=== PATIENT | male | born 1940 | race Caucasian/White ===

== ENCOUNTER 2023-10-01 09:17 | Emergency (ER) | payer MEDICARE, OTHER, SELFPAY ==
[2023-10-01 09:30] VITALS: BP 165/110
--- NOTE | 2023-10-01 09:36 | ED.GENMED ---
History of Present Illness
General
Chief Complaint: Skin Problem
Time Seen by Provider: 10/01/23 09:36
Travel History
Have you had any contact with someone who has COVID-19?: No
Do you have any symptoms of coronavirus? Fever > 100 degrees, chills, cough, shortness of breath, sore throat, loss of taste or smell, muscle aches, or headache?: No
History of Present Illness
History of Present Illness:
HPI: Patient presents due to concern for pain of the distal right lower extremity. He notes redness and warmth. His chart indicates that he is a diabetic but the patient tells me that he does not take any medications and does not clearly state
that he has a diagnosis of diabetes. He denies any trauma. The symptoms have been ongoing for the past week or 2.
EXAM:
GENERAL: Well appearing in no distress
HEENT: Moist oral mucosa
CARDIOVASCULAR: Systolic murmur noted, normal heart rate, regular rhythm, No chest wall tenderness
PULMONARY: No respiratory distress, breath sounds are clear and equal
ABDOMEN: Soft with no peritoneal signs, no tenderness
NEUROLOGIC: Excellent strength all extremities, no coordination deficits
PSYCHIATRIC: Appropriate mental status, normal insight and judgement
EXTREMITIES: There is tenderness warmth and erythema noted to the lateral aspect of the distal right lower extremity without any significant bony tenderness, there is 1-2+ bilateral lower extremity edema
SKIN: As above
TIME OF INITIAL ENCOUNTER: 9:45 AM
NUMBER AND COMPLEXITY OF PROBLEMS ADDRESSED AT THE ENCOUNTER
� Chronic conditions affecting care: Arrthythmia (atrial fibrillation, nonsustained VT, SVT), Cancer (non hodgkins large B cell lymphoma), Hypercholesterolemia, NIDDM, Seizures, Hypothyroidism, Other (Sepsis due to Streptococcus,
intra-abdominal abscess, vitamin D deficiency, presumed essential tremor) and Other (Nephrolithiasis)
� Acute Exacerbation and/or Progression of Chronic Illness: This is an acute problem
� Differential Diagnosis includes: Cellulitis, DVT, poor nutritional state, lymphedema
AMOUNT AND/OR COMPLEXITY OF DATA TO BE REVIEWED AND ANALYZED
� I performed an independent evaluation of and my interpretation is:
EKG:
CT:
X-rays: X-rays of right tib-fib showed no acute abnormality but does show degenerative disease
Laboratory Studies: White count is top normal at 10.8, hemoglobin normal, proBNP is not significantly elevated, albumin normal
Other: Ultrasound imaging shows no evidence of DVT
� Review of other/old records: I reviewed discharge summary from April 2023 at that time he was here with a TIA
� Clinical information was obtained by an independent historian: I spoke to [id number] and then daughter at bedside
� Prescriptions/Medications Considered but not given:
� Further testing considered but not performed:
RISK OF COMPLICATIONS AND/OR MORBIDITY OR MORTALITY OF PATIENT MANAGEMENT
� Social determinants of health affecting care: Lives at home
� Discussion with other providers:
� Escalation of care including admission/observation vs risk of discharge considered: The patient has bilateral lower extremity edema with pain in the right lower extremity distally. Favor more of a diagnosis of cellulitis will
obtain labs and ultrasound.
Past History
Past History
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
vitamin D deficiency, presumed essential tremor) and Other (Nephrolithiasis)
ED Past Surgical History: Other (splenectomy)
Social History
Tobacco: Former smoker
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
Personal:
Living: with family
Family History
Family History: Negative Diabetes, Hypertension or CAD
Phy Exam
Physical Exam
Physical Exam:
See HPI
Course
Orders/Labs/Results
Orders:
Orders
10/01/23 09:51
CR Leg Tibia/fibula Right 2 Vw Urgent
Comment:
Reason For Exam: R pain distal
US Legs, Right [US Periph Venous LOWER Ext RT] Urgent
Comment:
Reason For Exam: swelling pain
10/01/23 10:01
CeFAZolin 1 GRAM [Ancef] 1 gram in 5 ml IV NOW
10/01/23 10:23
Complete Blood Count/With Diff Urgent
Comprehensive Metabolic Panel Urgent
NT-proBNP Urgent
Abnormal Lab Results
10/01/23
10:23
Hct 38.7 L %
(39.0-52.0)
RDW 14.8 H %
(11.5-14.5)
MPV 10.8 H fL
(7.4-10.4)
Abs Immat Gran (auto) 0.1 H 10^3/uL
(0-0.05)
Absolute Neuts (auto) 7.8 H 10^3/uL
(1.4-6.5)
Absolute Monos (auto) 1.2 H 10^3/uL
(0.1-0.6)
Immature Gran % 1.0 H %
(0-0.5)
Lymphocytes % 13.9 L %
(20.5-51.1)
Monocytes % 11.2 H %
(1.7-9.3)
BUN 27 H mg/dl
(9-20)
Glucose 104 H mg/dl
(70-99)
Total Protein 5.9 L g/dl
(6.3-8.2)
10/01/23 10:23
10/01/23 10:23
Vital Signs
Initial and Last Documented VS:
Initial Vital Signs
Temp Pulse Resp BP Pulse Ox
98.0 F 66 16 165/110 98
10/01/23 09:30 10/01/23 09:30 10/01/23 09:30 10/01/23 09:30 10/01/23 09:30
Last Documented Vital Signs
Temp Pulse Resp BP Pulse Ox
98.0 F 56 16 169/78 96
10/01/23 09:30 10/01/23 10:10 10/01/23 10:10 10/01/23 11:43 10/01/23 11:45
*Critical Care Note
Total Time (30-74mins, 75-104mins- exclusive of procedures): Not Applicable
ED Attending Note
-
Portions of this chart may have been created with voice recognition software.� Occasional wrong word or��sound alike� substitutions may have occurred due to the inherent limitations of voice recognition software.
Discharge Plan
Departure
Patient Disposition: Home (Routine Discharge)
Date of Disposition: 10/01/23
Time of Disposition: 12:45
Patient with high blood pressure during this ER visit?: Yes
Discharge Problem:
Cellulitis
Instructions: Cellulitis (Skin Infection), Adult (DC)
Prescriptions:
New
cephalexin 500 mg capsule
500 mg PO TID Qty: 21 0RF
No Action
levothyroxine 125 MCG tablet
125 mcg PO DAILY
metoprolol tartrate 25 MG tablet
25 mg PO BID
aspirin 81 mg tablet,chewable
81 mg PO DAILY
atorvastatin 80 mg tablet
80 mg PO QPM
magnesium oxide 400 mg magnesium Tablet
400 mg PO DAILY
pantoprazole 40 mg tablet,delayed release (DR/EC)
40 mg PO DAILY
metformin 1,000 mg tablet
1,000 mg PO BID
Briviact 100 mg tablet
100 mg PO BID
Referrals:
Silvino Garcia MD [Family Provider] -
Nils Mcintosh MD [Active] - Follow up in 2-3 days
Activity Restrictions/Additional Instructions:
The ultrasound shows no sign of blood clot. The white blood cell count was normal at 10.8, glucose levels 104. Tib-fib x-ray shows some degenerative change at the right knee and also shows a '9 mm dystrophic calcification in the medial aspect of
the proximal tibia' however this is stable compared to the imaging study that you had 03/21/2023. I have given you the contact information for the orthopedist on-call, Dr. Mcintosh. I sent a prescription to your pharmacy for antibiotics. We gave you a
one-time dose of IV Ancef.
Interventions
Interventions:
*Risk Screen - Suicide Last Done: 10/01/23 09:30
*General Assessment Last Done: 10/01/23 09:30
*Neglect/Abuse Screening Last Done: 10/01/23 09:30
ED- Fall Risk Assessment Last Done: 10/01/23 10:15
*ED COVID-19 Vaccine History Last Done: 10/01/23 11:48
ED-Skin Assessment Last Done: 10/01/23 10:15
[2023-10-01 10:10] VITALS: BP 174/84
[2023-10-01 10:17] VITALS: BMI 26.5
[2023-10-01 10:35] LABS: % Basophils 0.5 % (0-2); % Eosinophils 1.6 % (0-6); % Lymphocytes 13.9 % (20.5-51.1); % Monocytes 11.2 % (1.7-9.3); % Neutrophils 71.8 % (42.2-75.2); Absolute Basophils 0.1 10^3/uL (0-0.2); Absolute Eosinophils 0.2 10^3/uL (0-0.7); Absolute Immature Granulocytes 0.1 10^3/uL (0-0.05); Absolute Lymphocytes 1.5 10^3/uL (1.2-3.4); Absolute Monocytes 1.2 10^3/uL (0.1-0.6); Absolute Neutrophils 7.8 10^3/uL (1.4-6.5); Hematocrit 38.7 % (39.0-52.0); Hemoglobin 13.1 g/dL (13.0-18.0); Mean Corp Hgb Conc. 33.9 g/dL (33.0-37.0); Mean Corpuscular Hgb 27.8 pg (27.0-31.0); Mean Corpuscular Volume 82.2 fL (80.0-94.0); Mean Platelet Volume 10.8 fL (7.4-10.4); Nucleated Red Blood Cells % 0.2 % (-); Platelet Count 277 10^3/uL (130-400); Red Blood Cell Count 4.71 10^6/uL (4.70-6.10); Red Cell Dist. Width 14.8 % (11.5-14.5); White Blood Cell Count 10.8 10^3/uL (4.8-10.8)
[2023-10-01 10:46] LABS: ALT (SGPT) 23 U/L (0-50); AST (SGOT) 20 U/L (17-59); Albumin 3.8 g/dl (3.5-5.0); Alkaline Phosphatase 86 U/L (38-126); Blood Urea Nitrogen 27 mg/dl (9-20); Carbon Dioxide 22 mmol/L (22-30); Chloride 107 mmol/L (98-107); Estimated Creatinine Clearance 64 ml/min; Glucose 104 mg/dl (70-99); Potassium 4.3 mmol/L (3.5-5.1); Sodium 135 mmol/L (135-145); Total Bilirubin 0.5 mg/dl (0.2-1.3); Total Protein 5.9 g/dl (6.3-8.2); eGFR > 60.00
[2023-10-01 10:54] LABS: NT-proBNP 498 pg/ml
[2023-10-01] MEDS: ANCEF 5 IV (11:19)
[2023-10-01 11:43] VITALS: BP 169/78
--- NOTE | 2023-10-01 13:16 | EDRN ---
Reviewed discharge instructions with patient and his daughter. Verbalized understanding.[facility]
[2023-10-01 13:17] VITALS: BP 164/74
== END 2023-10-01 13:15 | disposition home or self-care (01) ==
LOC: EMR 09:17
PROVIDERS: EMERGENCY PHYSICIAN Emergency Medicine; FAMILY PHYSICIAN Internal Medicine Geriatric Medicine
DX: L03.115 Cellulitis of right lower limb (principal); I10 Essential (primary) hypertension; Z87.891 Personal history of nicotine dependence
CPT/HCPCS: 99285; 96374; 73590; 80053; 83880; 85025; 93971

== ENCOUNTER → 2023-10-04 11:31 | Outpatient (REF) | payer MEDICARE, OTHER, SELFPAY ==
[2023-10-04 11:56] LABS: % Basophils 0.6 % (0-2); % Eosinophils 1.8 % (0-6); % Immature Granulocytes 0.6 % (0-0.5); % Monocytes 9.6 % (1.7-9.3); % Neutrophils 73.4 % (42.2-75.2); Absolute Basophils 0.1 10^3/uL (0-0.2); Absolute Eosinophils 0.2 10^3/uL (0-0.7); Absolute Immature Granulocytes 0.1 10^3/uL (0-0.05); Absolute Lymphocytes 1.5 10^3/uL (1.2-3.4); Hematocrit 42.6 % (39.0-52.0); Hemoglobin 13.4 g/dL (13.0-18.0); Mean Corp Hgb Conc. 31.5 g/dL (33.0-37.0); Mean Corpuscular Hgb 26.8 pg (27.0-31.0); Mean Corpuscular Volume 85.2 fL (80.0-94.0); Mean Platelet Volume 11.4 fL (7.4-10.4); Nucleated Red Blood Cells % 0.2 % (-); Platelet Count 250 10^3/uL (130-400); Red Cell Dist. Width 15.1 % (11.5-14.5); White Blood Cell Count 10.9 10^3/uL (4.8-10.8)
[2023-10-04 12:00] LABS: Urine Albumin Trace (Neg - Trace); Urine Bilirubin Negative (Negative); Urine Character Clear (Clear); Urine Color Yellow; Urine Glucose Negative (Negative); Urine Ketone Negative (Negative); Urine Leukocyte Negative (Negative); Urine Nitrite Negative (Negative); Urine Occult Blood Negative (Negative); Urine Urobilinogen Negative (Neg - 1+)
[2023-10-04 12:17] LABS: ALT (SGPT) 25 U/L (0-50); AST (SGOT) 24 U/L (17-59); Albumin 3.9 g/dl (3.5-5.0); Alkaline Phosphatase 91 U/L (38-126); Blood Urea Nitrogen 33 mg/dl (9-20); Calcium 9.2 mg/dl (8.4-10.2); Carbon Dioxide 24 mmol/L (22-30); Chloride 103 mmol/L (98-107); Glucose 192 mg/dl (70-99); HDL Cholesterol 41 mg/dl; LDL Cholesterol, Calculated 63 mg/dl; Potassium 4.8 mmol/L (3.5-5.1); Sodium 137 mmol/L (135-145); Total Bilirubin 0.4 mg/dl (0.2-1.3); Total Cholesterol 120 mg/dl (50-199); Total Protein 6.4 g/dl (6.3-8.2); Triglyceride 84 mg/dl (10-149); Very Low Density Lipoprotein 16 mg/dl (0-30); eGFR > 60.00
[2023-10-04 12:30] LABS: Vitamin D, 25-OH*** 46.5 ng/mL (30-80)
== END ==
LOC: OLABWIL 11:31
PROVIDERS: ATTENDING PHYSICIAN Internal Medicine Geriatric Medicine
DX: R56.9 Unspecified convulsions (principal); E78.2 Mixed hyperlipidemia; I10 Essential (primary) hypertension; E11.9 Type 2 diabetes mellitus without complications; E55.9 Vitamin D deficiency, unspecified; I35.0 Nonrheumatic aortic (valve) stenosis
CPT/HCPCS: 36415; 80053; 80061; 81003; 82306; 83036; 85025

== ENCOUNTER → 2024-01-01 11:08 | Outpatient (REF) | payer MEDICARE, OTHER, SELFPAY ==
[2024-01-01 12:14] LABS: % Basophils 0.7 % (0-2); % Immature Granulocytes 0.8 % (0-0.5); % Lymphocytes 20.2 % (20.5-51.1); % Monocytes 12.2 % (1.7-9.3); % Neutrophils 63.1 % (42.2-75.2); Absolute Basophils 0.1 10^3/uL (0-0.2); Absolute Eosinophils 0.2 10^3/uL (0-0.7); Absolute Immature Granulocytes 0.1 10^3/uL (0-0.05); Absolute Lymphocytes 1.5 10^3/uL (1.2-3.4); Absolute Monocytes 0.9 10^3/uL (0.1-0.6); Absolute Neutrophils 4.8 10^3/uL (1.4-6.5); Hematocrit 40.8 % (39.0-52.0); Hemoglobin 13.7 g/dL (13.0-18.0); Mean Corp Hgb Conc. 33.6 g/dL (33.0-37.0); Mean Corpuscular Hgb 27.8 pg (27.0-31.0); Mean Corpuscular Volume 82.8 fL (80.0-94.0); Mean Platelet Volume 10.8 fL (7.4-10.4); Nucleated Red Blood Cells % 0.3 % (-); Platelet Count 297 10^3/uL (130-400); Red Blood Cell Count 4.93 10^6/uL (4.70-6.10); Red Cell Dist. Width 15.1 % (11.5-14.5); White Blood Cell Count 7.6 10^3/uL (4.8-10.8)
[2024-01-01 12:19] LABS: ALT (SGPT) 28 U/L (0-50); AST (SGOT) 29 U/L (17-59); Albumin 4.2 g/dl (3.5-5.0); Alkaline Phosphatase 102 U/L (38-126); Blood Urea Nitrogen 28 mg/dl (9-20); Calcium 9.5 mg/dl (8.4-10.2); Carbon Dioxide 23 mmol/L (22-30); Chloride 103 mmol/L (98-107); Glucose 170 mg/dl (70-99); HDL Cholesterol 36 mg/dl; LDL Cholesterol, Calculated 90 mg/dl; Potassium 4.8 mmol/L (3.5-5.1); Sodium 137 mmol/L (135-145); Total Bilirubin 0.8 mg/dl (0.2-1.3); Total Cholesterol 149 mg/dl (50-199); Total Protein 6.9 g/dl (6.3-8.2); Triglyceride 119 mg/dl (10-149); Very Low Density Lipoprotein 23 mg/dl (0-30); eGFR > 60.00
[2024-01-01 12:31] LABS: Vitamin D, 25-OH*** 34.1 ng/mL (30-80)
[2024-01-01 12:40] LABS: Urine Albumin Trace (Neg - Trace); Urine Bilirubin Negative (Negative); Urine Character Clear (Clear); Urine Color Yellow; Urine Glucose Negative (Negative); Urine Ketone Negative (Negative); Urine Leukocyte Negative (Negative); Urine Nitrite Negative (Negative); Urine Occult Blood 1+ (Negative); Urine Specific Gravity 1.015 (<1.030); Urine Urobilinogen Negative (Neg - 1+)
[2024-01-01 14:06] LABS: Urine Mucus Few
[2024-01-01 14:07] LABS: Urine Amorphous Seen
[2024-01-02 14:24] LABS: Glycohemoglobin (HgbA1c) 7.3 % (4.0-5.6)
== END ==
LOC: OLABWIL 11:08
PROVIDERS: ATTENDING PHYSICIAN Internal Medicine Geriatric Medicine
DX: E11.9 Type 2 diabetes mellitus without complications (principal); I48.91 Unspecified atrial fibrillation; E78.2 Mixed hyperlipidemia; R56.9 Unspecified convulsions; I10 Essential (primary) hypertension; E55.9 Vitamin D deficiency, unspecified; I35.0 Nonrheumatic aortic (valve) stenosis; I63.89 Other cerebral infarction; R25.1 Tremor, unspecified; M00.9 Pyogenic arthritis, unspecified; Z13.89 Encounter for screening for other disorder; M21.371 Foot drop, right foot; R26.9 Unspecified abnormalities of gait and mobility; L84 Corns and callosities; M21.969 Unspecified acquired deformity of unspecified lower leg; L03.115 Cellulitis of right lower limb
CPT/HCPCS: 36415; 80053; 80061; 81003; 81015; 82306; 83036; 85025

== ENCOUNTER → 2024-01-31 07:56 | Outpatient (REF) | payer MEDICARE, OTHER, SELFPAY ==
[2024-01-31 13:16] LABS: NT-proBNP 407 pg/ml
[2024-01-31 13:23] LABS: ALT (SGPT) 30 U/L (0-50); AST (SGOT) 30 U/L (17-59); Albumin 4.4 g/dl (3.5-5.0); Alkaline Phosphatase 110 U/L (38-126); Blood Urea Nitrogen 31 mg/dl (9-20); Calcium 9.2 mg/dl (8.4-10.2); Carbon Dioxide 24 mmol/L (22-30); Chloride 101 mmol/L (98-107); Glucose 119 mg/dl (70-99); Potassium 4.5 mmol/L (3.5-5.1); Sodium 139 mmol/L (135-145); Total Bilirubin 0.8 mg/dl (0.2-1.3); Total Protein 7.1 g/dl (6.3-8.2); eGFR > 60.00
[2024-01-31 13:29] LABS: % Basophils 0.6 % (0-2); % Eosinophils 2.5 % (0-6); % Immature Granulocytes 0.7 % (0-0.5); % Lymphocytes 22.2 % (20.5-51.1); % Monocytes 14.7 % (1.7-9.3); % Neutrophils 59.3 % (42.2-75.2); Absolute Basophils 0.1 10^3/uL (0-0.2); Absolute Eosinophils 0.2 10^3/uL (0-0.7); Absolute Immature Granulocytes 0.1 10^3/uL (0-0.05); Absolute Lymphocytes 1.9 10^3/uL (1.2-3.4); Absolute Monocytes 1.2 10^3/uL (0.1-0.6); Hemoglobin 13.7 g/dL (13.0-18.0); Mean Corp Hgb Conc. 32.6 g/dL (33.0-37.0); Mean Corpuscular Hgb 27.3 pg (27.0-31.0); Mean Corpuscular Volume 83.8 fL (80.0-94.0); Mean Platelet Volume 11.6 fL (7.4-10.4); Nucleated Red Blood Cells % 0 % (-); Platelet Count 330 10^3/uL (130-400); Red Blood Cell Count 5.01 10^6/uL (4.70-6.10); Red Cell Dist. Width 14.9 % (11.5-14.5); White Blood Cell Count 8.4 10^3/uL (4.8-10.8)
== END ==
LOC: RAD 07:56
PROVIDERS: ATTENDING PHYSICIAN Internal Medicine Geriatric Medicine
DX: E11.9 Type 2 diabetes mellitus without complications (principal); I48.91 Unspecified atrial fibrillation; E78.2 Mixed hyperlipidemia; R56.9 Unspecified convulsions; I10 Essential (primary) hypertension; E55.9 Vitamin D deficiency, unspecified; I35.0 Nonrheumatic aortic (valve) stenosis; I63.89 Other cerebral infarction; R25.1 Tremor, unspecified; M00.9 Pyogenic arthritis, unspecified; Z13.89 Encounter for screening for other disorder; M21.371 Foot drop, right foot; R26.9 Unspecified abnormalities of gait and mobility; L84 Corns and callosities; M21.969 Unspecified acquired deformity of unspecified lower leg; L03.115 Cellulitis of right lower limb; I50.43 Acute on chronic combined systolic (congestive) and diastolic (congestive) heart failure; M79.605 Pain in left leg
CPT/HCPCS: 36415; 73590; 80053; 83880; 85025

== ENCOUNTER → 2024-02-07 09:55 | Outpatient (REF) | payer MEDICARE, OTHER, SELFPAY ==
[2024-02-07 11:25] LABS: Blood Urea Nitrogen 46 mg/dl (9-20); Calcium 9.1 mg/dl (8.4-10.2); Carbon Dioxide 28 mmol/L (22-30); Chloride 102 mmol/L (98-107); Glucose 143 mg/dl (70-99); Potassium 4.4 mmol/L (3.5-5.1); Sodium 139 mmol/L (135-145); eGFR 54.85
== END ==
LOC: OLABWIL 09:55
PROVIDERS: ATTENDING PHYSICIAN Internal Medicine Cardiovascular Disease
DX: I50.31 Acute diastolic (congestive) heart failure (principal)
CPT/HCPCS: 36415; 80048

== ENCOUNTER → 2024-02-09 08:29 | Outpatient (REF) | payer MEDICARE, OTHER, SELFPAY | LOC: MRI 3T 08:29 | PROVIDERS: ATTENDING PHYSICIAN Internal Medicine Geriatric Medicine | DX: M79.605 Pain in left leg (principal); R22.9 Localized swelling, mass and lump, unspecified | CPT/HCPCS: 73718 ==

== ENCOUNTER → 2024-03-31 15:59 | Outpatient (REF) | payer MEDICARE, OTHER, SELFPAY ==
[2024-03-31 16:44] LABS: % Basophils 0.6 % (0-2); % Eosinophils 1.6 % (0-6); % Lymphocytes 19.2 % (20.5-51.1); % Monocytes 13.6 % (1.7-9.3); Absolute Basophils 0.1 10^3/uL (0-0.2); Absolute Eosinophils 0.1 10^3/uL (0-0.7); Absolute Immature Granulocytes 0.1 10^3/uL (0-0.05); Absolute Lymphocytes 1.7 10^3/uL (1.2-3.4); Absolute Monocytes 1.2 10^3/uL (0.1-0.6); Absolute Neutrophils 5.7 10^3/uL (1.4-6.5); Hematocrit 39.9 % (39.0-52.0); Hemoglobin 12.9 g/dL (13.0-18.0); Mean Corp Hgb Conc. 32.3 g/dL (33.0-37.0); Mean Corpuscular Hgb 27.7 pg (27.0-31.0); Mean Corpuscular Volume 85.8 fL (80.0-94.0); Mean Platelet Volume 10.5 fL (7.4-10.4); Nucleated Red Blood Cells % 0 % (-); Platelet Count 232 10^3/uL (130-400); Red Blood Cell Count 4.65 10^6/uL (4.70-6.10); White Blood Cell Count 8.8 10^3/uL (4.8-10.8)
[2024-03-31 16:55] LABS: ALT (SGPT) 34 U/L (0-50); AST (SGOT) 28 U/L (17-59); Albumin 4.2 g/dl (3.5-5.0); Alkaline Phosphatase 97 U/L (38-126); Blood Urea Nitrogen 29 mg/dl (9-20); Calcium 9.6 mg/dl (8.4-10.2); Carbon Dioxide 23 mmol/L (22-30); Chloride 106 mmol/L (98-107); Glucose 205 mg/dl (70-99); HDL Cholesterol 36 mg/dl; LDL Cholesterol, Calculated 81 mg/dl; Magnesium 1.3 mg/dl (1.6-2.3); Potassium 4.6 mmol/L (3.5-5.1); Sodium 143 mmol/L (135-145); Total Bilirubin 0.4 mg/dl (0.2-1.3); Total Cholesterol 166 mg/dl (50-199); Total Protein 6.7 g/dl (6.3-8.2); Triglyceride 248 mg/dl (10-149); Very Low Density Lipoprotein 49 mg/dl (0-30); eGFR > 60.00
[2024-03-31 16:56] LABS: LDH 226 U/L (120-246)
[2024-03-31 17:05] LABS: IgA 261 mg/dl (70-400); IgG 779 mg/dl (700-1600); IgM 38 mg/dl (40-230)
== END ==
LOC: REG 15:59
PROVIDERS: ATTENDING PHYSICIAN Internal Medicine; FAMILY PHYSICIAN Internal Medicine Geriatric Medicine
DX: C83.38 Diffuse large B-cell lymphoma, lymph nodes of multiple sites (principal); E11.9 Type 2 diabetes mellitus without complications
CPT/HCPCS: 36415; 80053; 80061; 82784; 83615; 83735; 85025

== ENCOUNTER → 2024-05-20 09:51 | Outpatient (REF) | payer MEDICARE, OTHER, SELFPAY ==
[2024-05-20 11:07] LABS: % Basophils 0.9 % (0-2); % Eosinophils 2.7 % (0-6); % Immature Granulocytes 0.6 % (0-0.5); % Monocytes 12.2 % (1.7-9.3); % Neutrophils 63.6 % (42.2-75.2); Absolute Basophils 0.1 10^3/uL (0-0.2); Absolute Eosinophils 0.2 10^3/uL (0-0.7); Absolute Immature Granulocytes 0.1 10^3/uL (0-0.05); Absolute Lymphocytes 1.6 10^3/uL (1.2-3.4); Absolute Neutrophils 5.1 10^3/uL (1.4-6.5); Hematocrit 41.6 % (39.0-52.0); Hemoglobin 13.7 g/dL (13.0-18.0); Mean Corp Hgb Conc. 32.9 g/dL (33.0-37.0); Mean Corpuscular Hgb 27.8 pg (27.0-31.0); Mean Corpuscular Volume 84.4 fL (80.0-94.0); Mean Platelet Volume 11.6 fL (7.4-10.4); Nucleated Red Blood Cells % 0.2 % (-); Platelet Count 341 10^3/uL (130-400); Red Blood Cell Count 4.93 10^6/uL (4.70-6.10)
[2024-05-20 11:42] LABS: ALT (SGPT) 26 U/L (0-50); AST (SGOT) 27 U/L (17-59); Albumin 4.4 g/dl (3.5-5.0); Alkaline Phosphatase 107 U/L (38-126); Blood Urea Nitrogen 26 mg/dl (9-20); Calcium 9.6 mg/dl (8.4-10.2); Carbon Dioxide 27 mmol/L (22-30); Chloride 103 mmol/L (98-107); Glucose 127 mg/dl (70-99); HDL Cholesterol 37 mg/dl; LDL Cholesterol, Calculated 78 mg/dl; Sodium 142 mmol/L (135-145); Total Bilirubin 0.5 mg/dl (0.2-1.3); Total Cholesterol 133 mg/dl (50-199); Triglyceride 90 mg/dl (10-149); Very Low Density Lipoprotein 18 mg/dl (0-30); eGFR > 60.00
[2024-05-20 12:20] LABS: Glycohemoglobin (HgbA1c) 7.2 % (4.0-5.6)
== END ==
LOC: REG 09:51
PROVIDERS: ATTENDING PHYSICIAN Internal Medicine Geriatric Medicine
DX: E11.9 Type 2 diabetes mellitus without complications (principal); I48.91 Unspecified atrial fibrillation; E78.2 Mixed hyperlipidemia; R56.9 Unspecified convulsions; I10 Essential (primary) hypertension; E55.9 Vitamin D deficiency, unspecified; I35.0 Nonrheumatic aortic (valve) stenosis; I63.89 Other cerebral infarction; R25.1 Tremor, unspecified; M00.9 Pyogenic arthritis, unspecified; M21.371 Foot drop, right foot; R26.9 Unspecified abnormalities of gait and mobility; L84 Corns and callosities; M21.969 Unspecified acquired deformity of unspecified lower leg; L03.115 Cellulitis of right lower limb; I50.43 Acute on chronic combined systolic (congestive) and diastolic (congestive) heart failure; M79.605 Pain in left leg
CPT/HCPCS: 36415; 80053; 80061; 83036; 85025

== ENCOUNTER 2024-06-19 08:46 | Inpatient (IN) | payer MEDICARE, OTHER, SELFPAY ==
[2024-06-02 14:04] VITALS: BMI 27.0
[2024-06-02 14:18] LABS: Hematocrit 40.6 % (39.0-52.0); Hemoglobin 13.1 g/dL (13.0-18.0); Mean Corp Hgb Conc. 32.3 g/dL (33.0-37.0); Mean Corpuscular Hgb 27.8 pg (27.0-31.0); Mean Platelet Volume 10.7 fL (7.4-10.4); Platelet Count 277 10^3/uL (130-400); Red Blood Cell Count 4.72 10^6/uL (4.70-6.10); Red Cell Dist. Width 15.4 % (11.5-14.5); White Blood Cell Count 7.7 10^3/uL (4.8-10.8)
[2024-06-02 14:36] LABS: ALT (SGPT) 25 U/L (0-50); AST (SGOT) 24 U/L (17-59); Albumin 4.1 g/dl (3.5-5.0); Alkaline Phosphatase 86 U/L (38-126); Blood Urea Nitrogen 25 mg/dl (9-20); Calcium 9.1 mg/dl (8.4-10.2); Carbon Dioxide 24 mmol/L (22-30); Chloride 106 mmol/L (98-107); Estimated Creatinine Clearance 57 ml/min; Glucose 157 mg/dl (70-99); Potassium 4.4 mmol/L (3.5-5.1); Sodium 144 mmol/L (135-145); Total Bilirubin 0.4 mg/dl (0.2-1.3); Total Protein 6.6 g/dl (6.3-8.2); eGFR > 60.00
[2024-06-13 09:38] VITALS: BMI 27.0
[2024-06-19] VITALS (12 sets, daily range): BP systolic 126–171; BP diastolic 62–89; PULSE 73; O2SAT 96; BMI 27.0
[2024-06-19] MEDS: MOBIC 15 MG PO (09:22)
[2024-06-19] MEDS: TYLENOL 650 MG PO ×4 (09:22→23:25)
[2024-06-19 09:32] LABS: Glucose - Point of Care 137 mg/dl (70-99)
--- NOTE | 2024-06-19 10:59 | W.PN.UPDATE ---
Update Note
Progress Note Update
R TKA Dr. Wylie 06/19/24
Immunocompromised state:
NHL
Spleenectomy
NIDDM
Age
hx Strep anginosus bacteremia/sepsis
-Cefadroxil ppx OP-monitor incision
NIDDM-A1 C 7.2-add Lantus + SSI Novolog coverage to oral regimen given hyperglycemic effct of surgery and potential for infection
NSVT-BB+tele
HOCM/HFpEF-minimize IVF and monitor volume status-daily weights--Lasix if indicated and BP tolerates
Seizure disorder
hx ETOH abuse
-Briviact+ Serax + Gabapentin--potential for increased tolerance/resistance pain meds
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
TIA
-resume statin and antiplatelet uninterrupted-good BP control
PMH (additional):
Hypothyroid
HTN
HLD
GERD
Pulmonary nodules
[2024-06-19 11:14] LABS: Glucose - Point of Care 80 mg/dl (70-99)
--- NOTE | 2024-06-19 11:32 | W.DS.TRANS ---
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
-
Discharge Instructions:
Sleep Apnea Risk Intermediate
Discharge Diagnosis/Procedures R TKA Dr. Wylie 06/19/24
Diet Diabetic, Carb Controlled
Activity With Walker
Driving Restrictions No driving
Bathing Restrictions OK to Shower
Other Services PT
Instructions:
Stand-Alone Forms: Total Hip/Knee Replacement D/C
Changes to Home Medications: Yes
Discharge Medications:
DC Medications w/original date entered in [facility]
levothyroxine 125 mcg tablet 125 mcg PO DAILY Thyroid 03/01/15
metoprolol tartrate 25 mg tablet 25 mg PO BID Heart disease/condition 08/03/20
atorvastatin 80 mg tablet 80 mg PO QPM High Cholesterol 12/13/22
magnesium oxide 400 mg PO DAILY Supplement 05/13/23
brivaracetam 100 mg tablet (Briviact) 100 mg PO BID Seizures 10/01/23
metformin 1,000 mg tablet 1,000 mg PO BID 10/01/23
pantoprazole 40 mg tablet,delayed release 40 mg PO DAILY 10/01/23
furosemide 20 mg tablet 20 mg PO DIRECTED 06/13/24
Saccharomyces boulardii 250 mg capsule (Florastor) 250 mg PO BID #1 cap 06/19/24
acetaminophen 325 mg tablet (Tylenol) 650 mg (2 x 325 mg) PO QID #1 tab 06/19/24
aspirin 325 mg tablet 325 mg PO DAILY blood clot prevention #1 tab 06/19/24
cefadroxil 500 mg capsule 500 mg PO BID infection prevention #14 caps 06/19/24
docusate sodium 100 mg capsule (Colace) 100 mg PO BID stool softner #1 cap 06/19/24
gabapentin 300 mg capsule 300 mg PO BID sleep/pain #20 caps 06/19/24
magnesium hydroxide 400 mg/5 mL oral suspension (Milk of Magnesia) 30 ml PO HS PRN Constipation #1 mL 06/19/24
meloxicam 15 mg tablet 15 mg PO DAILY anti-inflammatory #14 tabs 06/19/24
ondansetron 4 mg disintegrating tablet 4 mg PO Q6H PRN n/v #20 tabs 06/19/24
oxycodone 5 mg tablet 5 mg PO Q6H PRN 1 tab moderate pain, 2 tabs severe pain #30 tabs 06/19/24
sennosides 8.6 mg tablet (Senokot) 17.2 mg (2 x 8.6 mg) PO BID laxative #2 tabs 06/19/24
Home Medication Changes
Saccharomyces boulardii 250 mg capsule (Florastor) 250 mg PO BID #1 cap 06/19/24
acetaminophen 325 mg tablet (Tylenol) 650 mg (2 x 325 mg) PO QID #1 tab 06/19/24
aspirin 325 mg tablet 325 mg PO DAILY blood clot prevention #1 tab 06/19/24
cefadroxil 500 mg capsule 500 mg PO BID infection prevention #14 caps 06/19/24
docusate sodium 100 mg capsule (Colace) 100 mg PO BID stool softner #1 cap 06/19/24
gabapentin 300 mg capsule 300 mg PO BID sleep/pain #20 caps 06/19/24
magnesium hydroxide 400 mg/5 mL oral suspension (Milk of Magnesia) 30 ml PO HS PRN Constipation #1 mL 06/19/24
meloxicam 15 mg tablet 15 mg PO DAILY anti-inflammatory #14 tabs 06/19/24
ondansetron 4 mg disintegrating tablet 4 mg PO Q6H PRN n/v #20 tabs 06/19/24
oxycodone 5 mg tablet 5 mg PO Q6H PRN 1 tab moderate pain, 2 tabs severe pain #30 tabs 06/19/24
sennosides 8.6 mg tablet (Senokot) 17.2 mg (2 x 8.6 mg) PO BID laxative #2 tabs 06/19/24
Pending Results: No
[2024-06-19 13:52] LABS: Glucose - Point of Care 150 mg/dl (70-99)
[2024-06-19] MEDS: ROXICODONE 5 MG PO (14:23)
--- NOTE | 2024-06-19 15:15 | PTCARENOTE ---
Patient admitted from [facility] right total knee arthroplasty.Vital signs are stable.The dressing is intact without drainage.Neurovascular assessment is within normal limits and ongoing.The patient denies any pain at this time.The patient is in his
bed with the call james in reach.
[2024-06-19] MEDS: NORMOSOL-R/PLASMALYTE-A 1000 IV (15:47)
[2024-06-19 17:09] LABS: Glucose - Point of Care 187 mg/dl (70-99)
[2024-06-19] MEDS: LIPITOR 80 MG PO (17:17)
[2024-06-19] MEDS: ASPIRIN 325 MG PO (17:17)
[2024-06-19] MEDS: PROTONIX 40 MG PO (17:17)
[2024-06-19] MEDS: SYNTHROID 125 MCG PO (17:17)
[2024-06-19] MEDS: GLUCOPHAGE 1000 MG PO (17:17)
[2024-06-19] MEDS: LANTUS 0.08 UNITS SC (17:18)
[2024-06-19] MEDS: NOVOLOG FLEXPEN-MODERATE RESISTANCE 1 UNITS SC (17:58)
[2024-06-19] MEDS: NOVOLOG FLEXPEN 3 UNITS SC (17:59)
--- NOTE | 2024-06-19 19:36 | OR.RPT ---
Operative Report
Operative Report
Orthopaedic Surgery Operative Note
DATE OF OPERATION: 06/19/2024
PREOPERATIVE DIAGNOSES: Osteoarthritis, right knee.
POSTOPERATIVE DIAGNOSES: Osteoarthritis, right knee.
OPERATION PERFORMED:
1) Right total knee arthroplasty (CPT 42203)
2) Intraosseous administration of analgesic (CPT 06444)
SURGEON: Ibrahima Wylie MD
ASSISTANTS: Cuauhtemoc Alvarado PA-C who helped with patient and limb positioning and retraction
ANESTHESIA: Spinal by anesthesia plus intraoperative infusion of morphine into the tibial metaphysis by Dr. Wylie
COMPLICATIONS: None.
ESTIMATED BLOOD LOSS: 20mL
DRAINS: None
TOURNIQUET TIME: 46 minutes.
IMPLANTS:
- Criss Persona CR Femur, size 9
- Criss Persona tibia base plate, size F
- Criss Persona ultracongruent articular surface, 10 mm
- DJO [place] bone cement
INDICATIONS: The patient presented to my office with debilitating right knee pain due to osteoarthritis. We reviewed the natural history of this problem, as well as the risks, benefits, and alternatives of various treatment options. The patient
exhausted all nonoperative treatment options and wished to proceed with knee replacement surgery. The patient understood the risks which included, but were not limited to, bleeding, infection, failure to relieve pain, more pain than preop, damage to
blood vessels and nerves, need for reoperation, mechanical failure of the implants, wound healing problems, stiffness, instability, blood clot, pulmonary embolism, myocardial infarction, pneumonia, arrhythmia, CVA, and . The patient accepted
these risks and wished to proceed. All questions were answered, and informed consent was obtained.
PROCEDURE IN DETAIL: The patient was identified in the preoperative holding area. The right knee was identified as the operative site. The patient was taken in the operating room and placed in a supine position on the operating table. Spinal
anesthesia was performed. IV antibiotics and tranexamic acid were administered. An SCD was placed on the left lower extremity. A well-padded tourniquet was placed on the proximal thigh. All bony prominences were well padded. The right lower
extremity was prepped and draped in the usual sterile fashion.
We performed a surgical time-out. An interarticular block was performed with local anesthetic with epinephrine. The limb was exsanguinated with an Esmarch bandage, then the tourniquet was inflated to 250 mmHg. I performed interosseous administration
of morphine-saline solution via a Jamshidi style intraosseous needle into the proximal medial tibial metaphysis as described by Abhi Mcintosh MD. This was performed to aid in pain control. A midline skin incision was made followed by a medial
parapatellar arthrotomy. A subperiosteal peel was performed on the medial tibia. I excised part of the infrapatellar fat pad to improve our visualization as well as tissue over anterior femur. The patella was everted and the knee was flexed. I
excised the remnants of the anterior and posterior cruciate ligaments as well as tibial and femoral osteophytes with rongeurs.
The knee was flexed, and the extramedullary tibial cutting guide was aligned. Mohave was aligned at neutral, rotation was centered on the tibial tubercle, and coronal alignment was aligned with the mechanical axis of the tibia and center of the ankle
joint. The cut height was 10mm off the lateral tibia joint surface. The guide was secured into place. The MCL and LCL were protected. The tibia surface was cut. The cut surface was inspected after removal to ensure appropriate height and slope based
on the preoperative plan. The cut was checked with a drop anyi. It was centered nicely at the ankle.
A drill was used to open the femoral canal. The intramedullary distal femoral cutting guide was inserted into the femur. This was set at 5 degrees +0. This was secured into place with three pins. The cut level was checked with an homer wing. The
distal femur was cut through the cutting guide. The IM guide was reinserted to double check that the level of resection was flush and in appropriate alignment.
Marilee�s line and the transepicondylar axis were marked on the femur. The femoral sizing guide was applied to the anterior femur. Pins were inserted, and the 4-in-1 cutting guide was applied and secured into place. The rotation was compared to
Colleton�s line, the transepicondylar axis, and the neutral tibia cut and was found to be appropriate. The width was checked and found to be appropriate and lateralized on the femur. The anterior, posterior, and chamfur cuts were made. A lamina
cooker pie filling was used to open the flexion gap, and posterior osteophytes were removed with a curved osteotome. The remnant medial and lateral meniscus were also removed. I prophylactically cauterized the lateral geniculate arteries. A 10mm spacer block
was applied to the flexion gap and was noted to be balanced medially and laterally. The knee was extended, and the block showed symmetric to extension and flexion gaps.
The tibia was exposed and sized. Rotation was set in line with the tibial tubercle and congruent with the femur. The trial was secured into place with two pins. The trial femur was impacted into place, and a trial articular surface was placed. The
knee was taken through range of motion and noted to be stable throughout the arc of motion without gaping or excess tension. The patella tracked centrally throughout the arc of motion without need for further releases. No full thickness cartilage
defects.
The trials were removed. The tibia keel was prepared with the punch and the drill. The bone surfaces were irrigated with sterile saline and dried. The cement was mixed in a vacuum mixer. Cement gun was used to apply cement to the tibial surface and
the undersurface of the tibial implant. Cement was pressurized into the tibial canal and tibia surface. The tibial component was impacted into place. Excess cement was removed. Cement was applied to the femoral surface and the femoral component. The
femoral component was impacted into place, and excess cement removed. A trial articular surface was inserted, and the knee was extended while the cement polymerized. The tourniquet was let down, and meticulous hemostasis was achieved. Dilute
betadine was poured into the wound and allowed to soak for 3 minutes. The knee was irrigated with copious normal saline.
Once the cement was polymerized, the trial articular surface was removed. Any excess cement was removed. The knee was trialed, and the final articular surface was selected and inserted into the tibial locking mechanism. The knee was reduced. A fresh
drape was applied to the surgical field.
The arthrotomy was closed with 0-PDS. Once closed, an interarticular block was performed with local anesthetic with epi. The deep dermal layer was closed with 2-0 PDS, and the subcuticular skin was closed with 3-0 monocryl. A Dermabond Prineo
dressing was applied to the skin in full flexion. Once this was completely dry, a sterile waterproof dressing was applied.
The anesthesia team performed an adductor canal block in the OR. The patient awoke from anesthesia without any difficulties. The sponge and instrument counts were correct x2 at the end of the case.
Mehdi Wylie MD
[2024-06-19] MEDS: BACTROBAN 2% OINTMENT 1 APPLIC NASAL (20:43)
[2024-06-19] MEDS: SENOKOT 17.2 MG PO (20:44)
[2024-06-19] MEDS: NEURONTIN 300 MG PO (20:44)
[2024-06-19] MEDS: TORADOL 15 MG IV (20:44)
[2024-06-19] MEDS: COLACE 100 MG PO (20:45)
[2024-06-19] MEDS: LOPRESSOR 25 MG PO (20:45)
[2024-06-19] MEDS: SERAX 10 MG PO (20:45)
[2024-06-19] MEDS: BRIVIACT 100 MG PO (20:45)
[2024-06-19] MEDS: ANCEF 5 IV (20:50)
[2024-06-19 21:38] LABS: Glucose - Point of Care 218 mg/dl (70-99)
[2024-06-20] VITALS (8 sets, daily range): BP systolic 100–137; BP diastolic 60–69; PULSE 64–88; O2SAT 98
[2024-06-20] MEDS: TYLENOL 650 MG PO ×5 (04:08→20:04)
[2024-06-20] MEDS: ANCEF 5 IV (04:09)
[2024-06-20] MEDS: SYNTHROID 125 MCG PO (05:56)
[2024-06-20 07:37] LABS: Glucose - Point of Care 128 mg/dl (70-99)
[2024-06-20] MEDS: NOVOLOG FLEXPEN-MODERATE RESISTANCE SC ×2 (07:38→17:12)
[2024-06-20] MEDS: NOVOLOG FLEXPEN 3 UNITS SC ×3 (08:48→17:02)
[2024-06-20] MEDS: TORADOL 15 MG IV ×2 (08:49→20:03)
[2024-06-20] MEDS: BRIVIACT 100 MG PO ×2 (08:50→20:02)
[2024-06-20] MEDS: MOBIC 15 MG PO (08:51)
[2024-06-20] MEDS: PROTONIX 40 MG PO (08:51)
[2024-06-20] MEDS: LOPRESSOR 25 MG PO ×2 (08:51→20:02)
[2024-06-20] MEDS: COLACE 100 MG PO ×2 (08:51→20:02)
[2024-06-20] MEDS: NEURONTIN 300 MG PO ×2 (08:51→20:03)
[2024-06-20] MEDS: GLUCOPHAGE 1000 MG PO ×2 (08:51→17:01)
[2024-06-20] MEDS: SENOKOT 17.2 MG PO ×2 (08:51→20:03)
[2024-06-20] MEDS: MAG-TAB SR 84 MG PO (08:51)
[2024-06-20] MEDS: SERAX 10 MG PO ×2 (08:51→20:03)
[2024-06-20] MEDS: ASPIRIN 325 MG PO (08:51)
[2024-06-20] MEDS: LANTUS 0.08 UNITS SC (08:52)
[2024-06-20] MEDS: BACTROBAN 2% OINTMENT 1 APPLIC NASAL ×2 (08:52→20:01)
[2024-06-20] MEDS: LASIX 20 MG PO (08:55)
--- NOTE | 2024-06-20 09:55 | W.PN.ORTHO ---
Today's Communication / Plan
-
Patient very unstable with therapy with lack of focus and high anxiety. He will not be safe at home and is not at a mod I level with RW. Given his multiple comorbidities and functional status, he would benefit from SNF until improved. Will add
fall risk precaution.
Assessment
.
Distal Motor Intact: Yes
Dressing:
Clean, dry and intact.
Assessment:
Anxious and lacks focus
Immunocompromised state:
NHL
Spleenectomy
NIDDM
Age
hx Strep anginosus bacteremia/sepsis
-Cefadroxil ppx OP-monitor incision
NIDDM-A1 C 7.2-add Lantus + SSI Novolog coverage to oral regimen given hyperglycemic effect of surgery and potential for infection
--sugars well controlled
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
HOCM/HFpEF-minimize IVF and monitor volume status-daily weights--Lasix if indicated and BP tolerates-monitor volume status
Seizure disorder
hx ETOH abuse
-Briviact+ Serax + Gabapentin--potential for increased tolerance/resistance pain meds
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
TIA
-resume statin and antiplatelet uninterrupted-good BP control
PMH (additional):
Hypothyroid
HTN
HLD
GERD
Pulmonary nodules
Plan
.
Surgery / Date: R TKA Dr. Wylie 06/19/24
DVT Prophylaxis: Aspirin
Activity:
Out of bed.
PT/OT
Discharge Plan: SNF
Subjective
.
.:
Patient resting comfortably.
Vital Signs and Labs
.
Vital Signs and Labs:
Lab Results
06/02/24 14:01
06/02/24 14:01
Temp Pulse Resp BP Pulse Ox
98.0 F 70 18 125/69 97
06/20/24 08:00 06/20/24 08:00 06/20/24 08:00 06/20/24 08:00 06/20/24 08:00
Non-invasive Hgb result: 12.1
Physical Exam
-
GENERAL: very anxious and lacks focus
HEENT: No pallor, cyanosis, or jaundice. Throat clear.
NECK: Supple. No JVD.
RESPIRATORY: Lungs clear to auscultation.
CVS: S1, S2 normal. RRR.� syNo murmur, systolic 2/6 ejection murmur.
ABDOMEN: Soft, non-tender. No distension. BS+/normal.
EXTREMITIES: strength equal, no calf pain with palpation
BUILDING ESTIMATOR: AOx3. No focal deficits. griddle cook grossly intact
--- NOTE | 2024-06-20 10:51 | CM ---
Met with pt and his son at bedside
Pt reports he lives in independent living at [facility] - apartment, FF set-up, elevator access
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
DME - rolling walker, single point cane, raised toilet seat, shower rails
SNF - no past hx
HH - [facility] in past
Has ride when discharged - son
PCP - Silvino Garcia
Pharm - [facility]
PT currently recommending SNF. Per [facility]ia[facility] - will have bed. Referral to be sent in [facility]
Plan - anticipate transfer to [facility] when medically stable
[2024-06-20 12:27] LABS: Glucose - Point of Care 167 mg/dl (70-99)
[2024-06-20] MEDS: NOVOLOG FLEXPEN-MODERATE RESISTANCE 1 UNITS SC (12:47)
--- NOTE | 2024-06-20 15:48 | PTCARENOTE ---
Addendum entered by Yossi Gold RN 06/20/24 16:06:
rhythm possibly resembling a Wenkebach? EKG obtained. Reads normal sinus with first degree AV block. forwarded to Jeannine RICCI
Original Note:
this afternoon, pt developed regular irregular formation on telemetry, with frequent 1-1.5 second pauses. pt is asymptomatic. irregularity seems to be new this afternoon, pauses seem to be happening since pt placed on telemetry. Fanny Ashby
notified. strip printed and places in chart.
[2024-06-20] MEDS: LIPITOR 80 MG PO (17:01)
[2024-06-20 17:13] LABS: Glucose - Point of Care 131 mg/dl (70-99)
[2024-06-20 19:03] LABS: Glucose - Point of Care 115 mg/dl (70-99)
[2024-06-20] MEDS: FLUSH (NSS) 2 FLUSH IV (20:08)
[2024-06-20 21:47] LABS: Glucose - Point of Care 166 mg/dl (70-99)
[2024-06-21] VITALS (9 sets, daily range): BP systolic 106–159; BP diastolic 59–84; PULSE 72
[2024-06-21] MEDS: TYLENOL 650 MG PO ×5 (00:16→20:05)
--- NOTE | 2024-06-21 00:30 | PTCARENOTE ---
Patient bed alarming with patient attempting to go to bathroom Independently. RN to assist patient. Patient agitated with assistance and yelling at staff. He is impulsive with movement and not following direction for safe movement. Safety
reminders reinenforced when patient was more calm.
[2024-06-21] MEDS: SYNTHROID 125 MCG PO (04:38)
[2024-06-21 07:41] LABS: Glucose - Point of Care 82 mg/dl (70-99)
[2024-06-21] MEDS: NOVOLOG FLEXPEN-MODERATE RESISTANCE SC ×2 (08:14→12:15)
[2024-06-21] MEDS: LANTUS 0.08 UNITS SC (08:15)
[2024-06-21] MEDS: SERAX 10 MG PO ×2 (08:15→20:05)
[2024-06-21] MEDS: ASPIRIN 325 MG PO (08:15)
[2024-06-21] MEDS: NEURONTIN 300 MG PO ×2 (08:15→20:05)
[2024-06-21] MEDS: NOVOLOG FLEXPEN 3 UNITS SC ×3 (08:15→17:36)
[2024-06-21] MEDS: SENOKOT 17.2 MG PO ×2 (08:16→20:05)
[2024-06-21] MEDS: MOBIC 15 MG PO (08:16)
[2024-06-21] MEDS: BRIVIACT 100 MG PO ×2 (08:16→20:04)
[2024-06-21] MEDS: LOPRESSOR 25 MG PO ×2 (08:16→20:05)
[2024-06-21] MEDS: COLACE 100 MG PO ×2 (08:16→20:04)
[2024-06-21] MEDS: PROTONIX 40 MG PO (08:16)
[2024-06-21] MEDS: MAG-TAB SR 84 MG PO (08:16)
[2024-06-21] MEDS: GLUCOPHAGE 1000 MG PO ×2 (08:17→17:35)
[2024-06-21] MEDS: TORADOL 15 MG IV (08:18)
--- NOTE | 2024-06-21 09:19 | W.PN.ORTHO ---
Today's Communication / Plan
-
POD#2 right TKA under the direction of Dr. Wylie
--Weight bearing as tolerated to the right leg. Ambulate with the assistance of a walker
--PT/OT
--Aspirin 325mg daily x4 weeks postop for DVT prophylaxis
--Maintain surgical dressing until follow up appointment
--Continue with pain management as needed
--Case Management consult for discharge planning. Current recommendation is for SNF, likely at [facility]
Assessment
.
Distal Motor Intact: Yes
Dressing:
Clean, dry and intact.
Plan
.
Surgery / Date: R TKA Dr. Wylie 06/19/24
DVT Prophylaxis: Aspirin
Activity:
Out of bed.
PT/OT
Subjective
.
.:
Patient resting comfortably, sitting up in the chair. He reports pain in the knee
Vital Signs and Labs
.
Vital Signs and Labs:
Lab Results
06/02/24 14:01
06/02/24 14:01
Temp Pulse Resp BP Pulse Ox
98.1 F 77 18 159/84 98
06/21/24 07:19 06/21/24 07:19 06/21/24 07:19 06/21/24 07:19 06/21/24 07:19
Non-invasive Hgb result: 12.9
Physical Exam
-
Directed exam of right knee reveals surgical dressing in place. Clean, dry, and intact. Mild tenderness throughout the knee. ROM 5-80. Able to plantarflex/dorsiflex the ankle. calf soft and nontender. NVI distally.
[2024-06-21 12:00] LABS: Glucose - Point of Care 109 mg/dl (70-99)
[2024-06-21] MEDS: TYLENOL PO (15:25)
[2024-06-21 16:34] LABS: Glucose - Point of Care 153 mg/dl (70-99)
[2024-06-21] MEDS: LIPITOR 80 MG PO (17:35)
[2024-06-21] MEDS: NOVOLOG FLEXPEN-MODERATE RESISTANCE 1 UNITS SC (17:36)
[2024-06-21 21:25] LABS: Glucose - Point of Care 124 mg/dl (70-99)
[2024-06-22] MEDS: TYLENOL PO ×2 (02:03→05:30)
[2024-06-22 03:40] VITALS: BP 151/89
[2024-06-22] MEDS: SYNTHROID 125 MCG PO (05:47)
[2024-06-22 06:00] VITALS: BMI 26.7
--- NOTE | 2024-06-22 07:21 | W.PN.ORTHO ---
Today's Communication / Plan
-
POD#3 right TKA under the direction of Dr. Wylie
--Weight bearing as tolerated to the right leg. Ambulate with the assistance of a walker
--PT/OT
--Aspirin 325mg daily x4 weeks postop for DVT prophylaxis
--Maintain surgical dressing until follow up appointment in 2 weeks
--Continue with pain management as needed
--Case Management consult for discharge planning. Current recommendation is for SNF, likely at [facility]
--Patient is stable for discharge today
Assessment
.
Distal Motor Intact: Yes
Dressing:
Clean, dry and intact.
Plan
.
Surgery / Date: R TKA Dr. Wylie 06/19/24
DVT Prophylaxis: Aspirin
Activity:
Out of bed.
PT/OT
Subjective
.
.:
Patient resting comfortably in bed this morning. He reports no pain in the knee at this time, however he anticipated it will hurt when he gets up
Vital Signs and Labs
.
Vital Signs and Labs:
Lab Results
06/02/24 14:01
06/02/24 14:01
Temp Pulse Resp BP Pulse Ox
97.9 F 95 16 151/89 98
06/22/24 03:40 06/22/24 03:40 06/22/24 03:40 06/22/24 03:40 06/22/24 03:40
Non-invasive Hgb result: 12.9
Physical Exam
-
Directed exam of right knee reveals surgical dressing in place. Clean, dry, and intact. Mild tenderness throughout the knee. ROM 5-80. Able to plantarflex/dorsiflex the ankle. calf soft and nontender. NVI distally.
--- NOTE | 2024-06-22 07:27 | W.DCSUMMARY ---
Discharge Summary
Discharge Data
Date of Admission: 06/19/24
Date of Discharge: 06/22/24
-
Pending Results: No
Hospital Course
83 year old male admitted to [facility] following elective right total knee replacement on 06/19/24 under the direction of Dr. Wylie. Postoperatively, his pain was controlled and he was able to work with physical therapy. He was deemed
unsafe to return home and recommendations were made for penitentiary facility. Once he was medically stable, he was discharged to [facility]. He is to be weight bearing as tolerated to the right leg and ambulate with the assistance of
a walker. He is to take aspirin 325mg daily for one month postop to prevent blood clots. He will follow up with Dr. Wylie two weeks postop.
Discharge Plan
-
Patient Disposition: Detention/SNF
Discharge Diagnosis/Procedures: Right Total Knee Arthroplasty Dr. Wylie 06/19/24
Condition: Good
Diet: Diabetic, Carb Controlled
Activity: With Walker
Additional Activity: FALL PRECAUTIONS
Driving Restrictions: No driving
Bathing Restrictions: OK to Shower
Other Services: VN, PT and OT
Stand Alone Forms: Total Hip/Knee Replacement D/C
Referrals:
Silvino Garcia MD [Family Provider] -
Ibrahima Wylie MD [Active] -
Additional Discharge Medication Instructions: discontinue Dexamethasone due to diabetes and immunocompromised state
Prescriptions:
New
aspirin 325 mg tablet
325 mg PO DAILY Qty: 1 0RF
Rx Instructions:
Take with food
cefadroxil 500 mg capsule
500 mg PO BID Qty: 14 0RF
Rx Instructions:
*Take w/ food
*Take w/ probiotic
*POST-OP USE
docusate sodium [Colace] 100 mg capsule
100 mg PO BID Qty: 1 0RF
gabapentin 300 mg capsule
300 mg PO BID Qty: 20 0RF
Saccharomyces boulardii [Florastor] 250 mg capsule
250 mg PO BID Qty: 1 0RF
sennosides [Senokot] 8.6 mg tablet
17.2 mg PO BID Qty: 2 0RF
acetaminophen [Tylenol] 325 mg tablet
650 mg PO QID Qty: 1 0RF
Rx Instructions:
SCHEDULED DOSING
meloxicam 15 mg tablet
15 mg PO DAILY Qty: 14 0RF
Rx Instructions:
take with food
post-op
magnesium hydroxide [Milk of Magnesia] 400 mg/5 mL suspension
30 ml PO HS PRN (Reason: Constipation) Qty: 1 0RF
ondansetron [ondansetron] 4 mg tablet,disintegrating
4 mg PO Q6H PRN (Reason: n/v) Qty: 20 0RF
Rx Instructions:
take 1/2h b/f pain med if recurrent nausea
allow to dissolve in mouth w/o water
oxycodone 5 mg tablet
5 mg PO Q6H PRN (Reason: 1 tab moderate pain, 2 tabs severe pain) Qty: 30 0RF
Rx Instructions:
Ongoing therapy
Continued
levothyroxine 125 MCG tablet
125 mcg PO DAILY
metoprolol tartrate 25 MG tablet
25 mg PO BID
atorvastatin 80 mg tablet
80 mg PO QPM
magnesium oxide 400 mg magnesium Tablet
400 mg PO DAILY
pantoprazole 40 mg tablet,delayed release (DR/EC)
40 mg PO DAILY
metformin 1,000 mg tablet
1,000 mg PO BID
Briviact 100 mg tablet
100 mg PO BID
furosemide 20 mg Tablet
20 mg PO DIRECTED
Rx Instructions:
M,W,F
Discontinued
aspirin 81 mg tablet,chewable
81 mg PO DAILY
Discharge Orders:
Discharge Patient (As Directed); Ordered 06/22/24
Ordered By: Jennifer Thompson
Discharge Date and Time
Print Language: HUNGARIAN
[2024-06-22 07:30] VITALS: BP 148/81
--- NOTE | 2024-06-22 07:31 | W.DS.TRANS ---
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
-
Discharge Instructions:
Sleep Apnea Risk Intermediate
Discharge Diagnosis/Procedures Right Total Knee Arthroplasty Dr. Wylie 06/19/24
Diet Diabetic, Carb Controlled
Activity With Walker
Additional Activity FALL PRECAUTIONS
Driving Restrictions No driving
Bathing Restrictions OK to Shower
Other Services PT,VN,OT
Instructions:
Stand-Alone Forms: Total Hip/Knee Replacement D/C
Changes to Home Medications: No
Discharge Medications:
DC Medications w/original date entered in [employer]
levothyroxine 125 mcg tablet 125 mcg PO DAILY Thyroid 03/01/15
metoprolol tartrate 25 mg tablet 25 mg PO BID Heart disease/condition 08/03/20
atorvastatin 80 mg tablet 80 mg PO QPM High Cholesterol 12/13/22
magnesium oxide 400 mg PO DAILY Supplement 05/13/23
brivaracetam 100 mg tablet (Briviact) 100 mg PO BID Seizures 10/01/23
metformin 1,000 mg tablet 1,000 mg PO BID Diabetes 10/01/23
pantoprazole 40 mg tablet,delayed release 40 mg PO DAILY Gastrointestinal Issue 10/01/23
furosemide 20 mg tablet 20 mg PO DIRECTED Fluid Retention/Swelling 06/13/24
Saccharomyces boulardii 250 mg capsule (Florastor) 250 mg PO BID #1 cap 06/19/24
acetaminophen 325 mg tablet (Tylenol) 650 mg (2 x 325 mg) PO QID #1 tab 06/19/24
aspirin 325 mg tablet 325 mg PO DAILY blood clot prevention #1 tab 06/19/24
cefadroxil 500 mg capsule 500 mg PO BID infection prevention #14 caps 06/19/24
docusate sodium 100 mg capsule (Colace) 100 mg PO BID stool softner #1 cap 06/19/24
gabapentin 300 mg capsule 300 mg PO BID sleep/pain #20 caps 06/19/24
magnesium hydroxide 400 mg/5 mL oral suspension (Milk of Magnesia) 30 ml PO HS PRN Constipation #1 mL 06/19/24
meloxicam 15 mg tablet 15 mg PO DAILY anti-inflammatory #14 tabs 06/19/24
ondansetron 4 mg disintegrating tablet 4 mg PO Q6H PRN n/v #20 tabs 06/19/24
oxycodone 5 mg tablet 5 mg PO Q6H PRN 1 tab moderate pain, 2 tabs severe pain #30 tabs 06/19/24
sennosides 8.6 mg tablet (Senokot) 17.2 mg (2 x 8.6 mg) PO BID laxative #2 tabs 06/19/24
Home Medication Changes
Pending Results: No
[2024-06-22 08:46] LABS: Glucose - Point of Care 108 mg/dl (70-99)
[2024-06-22] MEDS: NOVOLOG FLEXPEN-MODERATE RESISTANCE SC (08:49)
[2024-06-22] MEDS: NOVOLOG FLEXPEN SC ×2 (08:50→11:10)
[2024-06-22] MEDS: LANTUS 0.08 UNITS SC (08:51)
[2024-06-22] MEDS: GLUCOPHAGE 1000 MG PO (08:53)
[2024-06-22] MEDS: BRIVIACT 100 MG PO (08:54)
[2024-06-22] MEDS: MAG-TAB SR 84 MG PO (08:54)
[2024-06-22] MEDS: TYLENOL 650 MG PO ×2 (08:54→13:21)
[2024-06-22] MEDS: SERAX 10 MG PO (08:55)
[2024-06-22] MEDS: ASPIRIN 325 MG PO (08:55)
[2024-06-22] MEDS: MOBIC 15 MG PO (08:55)
[2024-06-22] MEDS: PROTONIX 40 MG PO (08:55)
[2024-06-22] MEDS: SENOKOT 17.2 MG PO (08:55)
[2024-06-22] MEDS: LOPRESSOR 25 MG PO (08:56)
[2024-06-22] MEDS: NEURONTIN 300 MG PO (08:56)
[2024-06-22] MEDS: COLACE 100 MG PO (08:56)
--- NOTE | 2024-06-22 11:12 | CM ---
Addendum entered by Evy Winston 06/22/24 13:38:
Isatu from [place] requesting if family can provide pts meds - Briviat and Oxazepam as Pharm does not have in stock - will order
Spoke with pts son Mynor - family will provide meds -
Updated Isatu at [place]
Addendum entered by Evy Winston 06/22/24 11:36:
Per Isatu at [place] - pt may transfer to [facility] today
Transport at 2PM
Plan - transfer to [facility]
R - [phone]
F - [phone]
Original Note:
Pt accepted at [place]
Called Estrella Lunsford - LM requesting return call -aware pt for discharge today
Sent text message with same info
Called and LM at [facility] - requested return call
IMM reviewed with pt and his daughter at bedside
Plan - [facility] when bed confirmed
[2024-06-22 11:49] LABS: Glucose - Point of Care 150 mg/dl (70-99)
[2024-06-22 13:00] VITALS: BP 129/74
[2024-06-22] MEDS: NOVOLOG FLEXPEN-MODERATE RESISTANCE 1 UNITS SC (13:27)
[2024-06-22] MEDS: NOVOLOG FLEXPEN 3 UNITS SC (13:29)
== END 2024-06-22 14:36 | DRG 470 ==
LOC: 2 SOUTH 08:46
PROVIDERS: ADMITTING PHYSICIAN Orthopaedic Surgery; FAMILY PHYSICIAN Internal Medicine Geriatric Medicine; REFERRING PHYSICIAN Internal Medicine
PROC: 0SRC0J9 Replacement of Right Knee Joint with Synthetic Substitute, Cemented, Open Approach (ICD-10-PCS; 2024-06-19)
DX: M17.11 Unilateral primary osteoarthritis, right knee (principal); I50.42 Chronic combined systolic (congestive) and diastolic (congestive) heart failure; I42.1 Obstructive hypertrophic cardiomyopathy; Z79.82 Long term (current) use of aspirin; I11.9 Hypertensive heart disease without heart failure; E03.9 Hypothyroidism, unspecified; I77.9 Disorder of arteries and arterioles, unspecified; E78.2 Mixed hyperlipidemia; H35.30 Unspecified macular degeneration; Z86.73 Personal history of transient ischemic attack (TIA), and cerebral infarction without residual deficits; Z90.49 Acquired absence of other specified parts of digestive tract; Z90.81 Acquired absence of spleen; Z87.891 Personal history of nicotine dependence; Z88.2 Allergy status to sulfonamides; E11.9 Type 2 diabetes mellitus without complications; Z79.84 Long term (current) use of oral hypoglycemic drugs; Z79.890 Hormone replacement therapy; K59.00 Constipation, unspecified; K21.9 Gastro-esophageal reflux disease without esophagitis; Z85.72 Personal history of non-Hodgkin lymphomas; F10.11 Alcohol abuse, in remission; I11.0 Hypertensive heart disease with heart failure; G40.909 Epilepsy, unspecified, not intractable, without status epilepticus
CPT/HCPCS: 36415; 73560; 80053; 82962; 85027; 87070; 93005; 97110; 97116; 97162; 97166; 97530; 97535; C1713; C1776

== ENCOUNTER → 2024-06-25 10:50 | Outpatient (REF) | payer OTHER, MEDICARE, SELFPAY ==
[2024-06-25 12:41] LABS: Hematocrit 31.2 % (39.0-52.0); Mean Corp Hgb Conc. 32.1 g/dL (33.0-37.0); Mean Corpuscular Hgb 27.8 pg (27.0-31.0); Mean Corpuscular Volume 86.7 fL (80.0-94.0); Mean Platelet Volume 11.5 fL (7.4-10.4); Platelet Count 307 10^3/uL (130-400); Red Cell Dist. Width 14.8 % (11.5-14.5); White Blood Cell Count 8.8 10^3/uL (4.8-10.8)
[2024-06-25 15:04] LABS: ALT (SGPT) 30 U/L (0-50); AST (SGOT) 33 U/L (17-59); Albumin 3.3 g/dl (3.5-5.0); Alkaline Phosphatase 98 U/L (38-126); Blood Urea Nitrogen 38 mg/dl (9-20); Calcium 8.4 mg/dl (8.4-10.2); Carbon Dioxide 23 mmol/L (22-30); Chloride 103 mmol/L (98-107); Glucose 100 mg/dl (70-99); Magnesium 1.8 mg/dl (1.6-2.3); Potassium 4.5 mmol/L (3.5-5.1); Sodium 138 mmol/L (135-145); Total Protein 5.8 g/dl (6.3-8.2); eGFR 54.85
== END ==
LOC: OLABWHC 10:50
PROVIDERS: ATTENDING PHYSICIAN Registered Nurse; FAMILY PHYSICIAN Family Medicine
DX: R60.9 Edema, unspecified (principal); E11.9 Type 2 diabetes mellitus without complications; Z47.1 Aftercare following joint replacement surgery; I10 Essential (primary) hypertension; I48.91 Unspecified atrial fibrillation
CPT/HCPCS: 36415; 80053; 83735; 85027

== ENCOUNTER 2024-09-08 05:07 | Emergency (ER) | payer MEDICARE, OTHER, SELFPAY ==
[2024-09-08 05:10] VITALS: BP 179/99; BMI 26.5
[2024-09-08 05:35] LABS: % Basophils 0.3 % (0-2); % Eosinophils 1.2 % (0-6); % Immature Granulocytes 0.6 % (0-0.5); % Lymphocytes 11.8 % (20.5-51.1); % Monocytes 11.4 % (1.7-9.3); % Neutrophils 74.7 % (42.2-75.2); Absolute Basophils 0.1 10^3/uL (0-0.2); Absolute Eosinophils 0.2 10^3/uL (0-0.7); Absolute Immature Granulocytes 0.1 10^3/uL (0-0.05); Absolute Lymphocytes 1.7 10^3/uL (1.2-3.4); Absolute Monocytes 1.6 10^3/uL (0.1-0.6); Absolute Neutrophils 10.7 10^3/uL (1.4-6.5); Hematocrit 42.6 % (39.0-52.0); Hemoglobin 13.5 g/dL (13.0-18.0); Mean Corp Hgb Conc. 31.7 g/dL (33.0-37.0); Mean Corpuscular Volume 85.2 fL (80.0-94.0); Nucleated Red Blood Cells % 0.1 % (-); Platelet Count 351 10^3/uL (130-400); Red Cell Dist. Width 15.1 % (11.5-14.5); White Blood Cell Count 14.4 10^3/uL (4.8-10.8)
[2024-09-08 05:47] LABS: ALT (SGPT) 22 U/L (0-50); AST (SGOT) 23 U/L (17-59); Alkaline Phosphatase 118 U/L (38-126); Blood Urea Nitrogen 37 mg/dl (9-20); Calcium 9.5 mg/dl (8.4-10.2); Carbon Dioxide 22 mmol/L (22-30); Chloride 107 mmol/L (98-107); Estimated Creatinine Clearance 46 ml/min; Glucose 138 mg/dl (70-99); Lipase 78 U/L (23-300); Potassium 4.6 mmol/L (3.5-5.1); Sodium 139 mmol/L (135-145); Total Bilirubin 0.6 mg/dl (0.2-1.3); Total Protein 6.8 g/dl (6.3-8.2); eGFR > 60.00
[2024-09-08] MEDS: ZOFRAN 4 MG IV (06:10)
[2024-09-08 06:47] VITALS: BP 188/103
--- NOTE | 2024-09-08 07:11 | ED.GENMED ---
History of Present Illness
General
Chief Complaint: Abdominal Symptoms
Source: patient
Time Seen by Provider: 09/08/24 07:03
History of Present Illness
History of Present Illness:
83-year-old male presents to the emergency room complaining of right flank pain. Patient resides at [facility]. He has moderate pain with associated nausea. He has not vomited. No known fever or chills. Patient states that somebody
may have had a kidney stone in the past but the patient does not remember this.
Past History
Past History
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
vitamin D deficiency, presumed essential tremor) and Other (Nephrolithiasis)
ED Past Surgical History: Other (splenectomy)
Social History
Tobacco: Former smoker
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
Personal:
Living: with family
Family History
Family History: Negative Diabetes, Hypertension or CAD
Phy Exam
Physical Exam
Physical Exam:
General: Awake, Alert, Oriented X3. No acute distress.
Vitals: unremarkable
Head: Atraumatic
Eyes: Pupils equal, EOMI
Throat: Airway intact, no exudates
Neck: Trachea midline
Lungs: Clear and equal b/l
Heart: Regular rate, no murmurs
Abd: Soft, Nontender, No pulsatile mass
Back: No significant CVA tenderness to percussion
Neuro: Nonfocal exam normal
Skin: Warm, dry, no rash
Extremities: pulses equal b/l, no edema
Course
Orders/Labs/Results
Orders:
Orders
09/08/24 05:15
CMP [Comprehensive Metabolic Panel] Urgent
Complete Blood Count/With Diff Urgent
Lipase Urgent
09/08/24 06:08
Ondansetron Injectable [Zofran] 4 mg .ROUTE .STK-MED ONE
09/08/24 06:10
Ondansetron Injectable [Zofran] 4 mg IV NOW STA
09/08/24 07:10
CT Abd/pel Without Iv Or Oral Urgent
Comment:
Reason For Exam: r flank pain
0.9% Sodium Chloride 1000 ml [Nss] 1,000 ml IV BOLUS
Ketorolac [Toradol] 15 mg IV NOW STA
09/08/24 08:42
Urinalysis Reflex To Culture Urgent
Date Specimen was Collected: 09/08/24
Time Specimen was Collected: 07:14
Urine Microscopic Reflex Cult Urgent
Abnormal Lab Results
09/08/24 09/08/24
05:15 08:42
WBC 14.4 H 10^3/uL
(4.8-10.8)
MCHC 31.7 L g/dL
(33.0-37.0)
RDW 15.1 H %
(11.5-14.5)
Abs Immat Gran (auto) 0.1 H 10^3/uL
(0-0.05)
Absolute Neuts (auto) 10.7 H 10^3/uL
(1.4-6.5)
Absolute Monos (auto) 1.6 H 10^3/uL
(0.1-0.6)
Immature Gran % 0.6 H %
(0-0.5)
Lymphocytes % 11.8 L %
(20.5-51.1)
Monocytes % 11.4 H %
(1.7-9.3)
BUN 37 H mg/dl
(9-20)
Glucose 138 H mg/dl
(70-99)
Urine Ketones 1+ A
(Negative)
Ur Occult Blood Reflex 4+ A
(Negative)
Urine RBC >100 A /HPF
(0-2)
Urine Glucose 4+ A
(Negative)
Urine Albumin (Reflex) 2+ A
(Neg - Trace)
09/08/24 05:15
09/08/24 05:15
Vital Signs
Initial and Last Documented VS:
Initial Vital Signs
Temp Pulse Resp BP Pulse Ox
98.2 F 82 16 179/99 99
09/08/24 05:10 09/08/24 05:10 09/08/24 05:10 09/08/24 05:10 09/08/24 05:10
Last Documented Vital Signs
Temp Pulse Resp BP Pulse Ox
98.5 F 62 20 175/85 97
09/08/24 06:47 09/08/24 08:14 09/08/24 08:14 09/08/24 08:14 09/08/24 08:15
MDM/Problems Addressed
Differential Diagnosis Includes:
Pyelonephritis, kidney stone, diverticulitis
MDM/Problems Addressed:
Patient presents with right flank pain. White count is mildly of elevated at 14.4. Labs show mildly elevated BUN which is in line with previous measurements. Remainder chemistries are unremarkable. Urinalysis shows significant number of RBCs
without any convincing evidence of urinary tract infection. CT was performed which shows significant hydronephrosis as well as stones in the ureter and in the bladder. Communicated with Dr. Bass for. As long as the patient is comfortable he will
see the patient in follow-up in the office. No reason for hospitalization at this time. I did communicate with the patient's son so that adequate follow-up can be assured.
*Radiology
Radiology exam reviewed: radiology read reviewed
*Pulse Oximetry
Patient hypoxic: no
*Critical Care Note
Total Time (30-74mins, 75-104mins- exclusive of procedures): Not Applicable
ED Attending Note
-
Portions of this chart may have been created with voice recognition software.� Occasional wrong word or��sound alike� substitutions may have occurred due to the inherent limitations of voice recognition software.
Discharge Plan
Departure
Patient Disposition: Assisted Living
Date of Disposition: 09/08/24
Time of Disposition: 11:12
Condition: Good
Discharge Problem:
Renal colic on right side
Instructions: Kidney stones in adults
Prescriptions:
No Action
levothyroxine 125 MCG tablet
125 mcg PO DAILY
metoprolol tartrate 25 MG tablet
25 mg PO BID
atorvastatin 80 mg tablet
80 mg PO QPM
magnesium oxide 400 mg magnesium Tablet
400 mg PO DAILY
pantoprazole 40 mg tablet,delayed release (DR/EC)
40 mg PO DAILY
metformin 1,000 mg tablet
1,000 mg PO BID
Briviact 100 mg tablet
100 mg PO BID
furosemide 20 mg Tablet
20 mg PO DIRECTED
Rx Instructions:
M,W,F
aspirin 325 mg tablet
325 mg PO DAILY Qty: 1 0RF
Rx Instructions:
Take with food
cefadroxil 500 mg capsule
500 mg PO BID Qty: 14 0RF
Rx Instructions:
*Take w/ food
*Take w/ probiotic
*POST-OP USE
docusate sodium [Colace] 100 mg capsule
100 mg PO BID Qty: 1 0RF
gabapentin 300 mg capsule
300 mg PO BID Qty: 20 0RF
Saccharomyces boulardii [Florastor] 250 mg capsule
250 mg PO BID Qty: 1 0RF
sennosides [Senokot] 8.6 mg tablet
17.2 mg PO BID Qty: 2 0RF
acetaminophen [Tylenol] 325 mg tablet
650 mg PO QID Qty: 1 0RF
Rx Instructions:
SCHEDULED DOSING
meloxicam 15 mg tablet
15 mg PO DAILY Qty: 14 0RF
Rx Instructions:
take with food
post-op
magnesium hydroxide [Milk of Magnesia] 400 mg/5 mL suspension
30 ml PO HS PRN (Reason: Constipation) Qty: 1 0RF
ondansetron [ondansetron] 4 mg tablet,disintegrating
4 mg PO Q6H PRN (Reason: n/v) Qty: 20 0RF
Rx Instructions:
take 1/2h b/f pain med if recurrent nausea
allow to dissolve in mouth w/o water
oxycodone 5 mg tablet
5 mg PO Q6H PRN (Reason: 1 tab moderate pain, 2 tabs severe pain) Qty: 30 0RF
Rx Instructions:
Ongoing therapy
Referrals:
Silvino Garcia MD [Family Provider] -
Jose Mathews MD [Active] -
Activity Restrictions/Additional Instructions:
Testing here shows you have several stones in the tube that connects the right kidney to the bladder. You need to see a urologist for this. I have included contact information for Dr. Mathews's office. Call to make an appointment with him or one
of his partners.
Interventions
Interventions:
*Risk Screen - Suicide Last Done: 09/08/24 05:10
*General Assessment Last Done: 09/08/24 05:10
*Neglect/Abuse Screening Last Done: 09/08/24 05:10
ED- Fall Risk Assessment Last Done: 09/08/24 06:47
*ED COVID-19 Vaccine History Last Done: 09/08/24 05:10
*Nursing Disposition Last Done: 09/08/24 11:40
[id number]-[id number] Assessment Last Done: 09/08/24 06:47
Discharge Date and Time
Discharge Date/Time: 09/08/24 11:41
Print Language: HONG KONGER
[2024-09-08] MEDS: TORADOL 15 MG IV (07:23)
[2024-09-08] MEDS: NSS 1000 IV (07:24)
[2024-09-08 07:47] VITALS: BP 197/80
[2024-09-08 08:00] VITALS: BP 175/85
[2024-09-08 08:14] VITALS: BP 175/85
[2024-09-08 09:05] LABS: Urine Albumin 2+ (Neg - Trace); Urine Bilirubin Negative (Negative); Urine Character Clear (Clear); Urine Color Yellow; Urine Glucose 4+ (Negative); Urine Ketone 1+ (Negative); Urine Leukocyte Negative (Negative); Urine Nitrite Negative (Negative); Urine Occult Blood 4+ (Negative); Urine Urobilinogen Negative (Neg - 1+)
[2024-09-08 10:06] LABS: Urine Amorphous Seen; Urine Red Blood Cell >100 /HPF (0-2)
== END 2024-09-08 11:41 ==
LOC: EMR 05:07
PROVIDERS: Emergency Medicine; EMERGENCY PHYSICIAN Emergency Medicine; FAMILY PHYSICIAN Internal Medicine Geriatric Medicine
DX: N13.2 Hydronephrosis with renal and ureteral calculous obstruction (principal); E03.9 Hypothyroidism, unspecified; E11.9 Type 2 diabetes mellitus without complications; E78.00 Pure hypercholesterolemia, unspecified; I48.91 Unspecified atrial fibrillation; Z87.891 Personal history of nicotine dependence; Z85.72 Personal history of non-Hodgkin lymphomas
CPT/HCPCS: 96374; 96375; 99284; 74176; 80053; 81003; 81015; 83690; 85025

== ENCOUNTER 2024-09-12 06:14 | Day surgery (SDC) | payer MEDICARE, OTHER, SELFPAY ==
[2024-09-12] VITALS (8 sets, daily range): BP systolic 141–170; BP diastolic 68–93; BMI 26.0
[2024-09-12 12:30] LABS: Glucose - Point of Care 90 mg/dl (70-99)
[2024-09-12 15:51] LABS: Glucose - Point of Care 85 mg/dl (70-99)
== END 2024-09-12 17:15 | disposition home or self-care (01) ==
LOC: SDS 06:14
PROVIDERS: ATTENDING PHYSICIAN Urology
DX: N20.2 Calculus of kidney with calculus of ureter (principal); N21.0 Calculus in bladder; N40.1 Benign prostatic hyperplasia with lower urinary tract symptoms; N32.0 Bladder-neck obstruction
CPT/HCPCS: 52353; 52317; 76000; 82365; 82962

== ENCOUNTER → 2025-01-27 10:48 | Outpatient (REF) | payer MEDICARE, OTHER, SELFPAY ==
[2025-01-27 12:39] LABS: Hematocrit 41.9 % (39.0-52.0); Hemoglobin 13.5 g/dL (13.0-18.0); Mean Corp Hgb Conc. 32.2 g/dL (33.0-37.0); Mean Corpuscular Volume 82.8 fL (80.0-94.0); Nucleated Red Blood Cells % 0 % (-); Platelet Count 305 10^3/uL (130-400); Red Cell Dist. Width 17.1 % (11.5-14.5)
[2025-01-27 12:59] LABS: Urine Character Clear (Clear)
[2025-01-27 13:48] LABS: Urine Red Blood Cell 0-2 /HPF (0-2); Urine Squamous Cell None seen /LPF (Few); Urine White Cell 0-2 /HPF (0-5)
[2025-01-27 13:51] LABS: Glycohemoglobin (HgbA1c) 6.7 % (4.0-5.6)
[2025-01-27 14:10] LABS: Microalb - Urine Creatinine 82.200 mg/dl
[2025-01-27 14:13] LABS: ALT (SGPT) 24 U/L (0-50); AST (SGOT) 24 U/L (17-59); Albumin 4.3 g/dl (3.5-5.0); Alkaline Phosphatase 94 U/L (38-126); Blood Urea Nitrogen 23 mg/dl (9-20); Calcium 9.2 mg/dl (8.4-10.2); Carbon Dioxide 25 mmol/L (22-30); Chloride 109 mmol/L (98-107); Glucose 113 mg/dl (70-99); HDL Cholesterol 38 mg/dl; LDL Cholesterol, Calculated 73 mg/dl; Potassium 4.8 mmol/L (3.5-5.1); Sodium 141 mmol/L (135-145); Total Protein 6.9 g/dl (6.3-8.2); Very Low Density Lipoprotein 18 mg/dl (0-30); eGFR > 60.00
[2025-01-27 14:15] LABS: Microalbumin, Random Urine 5.6 mg/dl (0.6-1.7)
[2025-01-27 14:21] LABS: Vitamin D, 25-OH*** 39.3 ng/mL (30-80)
[2025-01-27 14:34] LABS: TSH 3.61 uIU/ml (0.47-4.68)
== END ==
LOC: OLABWIL 10:48
PROVIDERS: ATTENDING PHYSICIAN Internal Medicine Geriatric Medicine
DX: E78.2 Mixed hyperlipidemia (principal); E03.8 Other specified hypothyroidism; I10 Essential (primary) hypertension; E11.9 Type 2 diabetes mellitus without complications; G25.0 Essential tremor; R56.9 Unspecified convulsions; E55.9 Vitamin D deficiency, unspecified; I63.89 Other cerebral infarction; R73.01 Impaired fasting glucose; I35.0 Nonrheumatic aortic (valve) stenosis; I48.0 Paroxysmal atrial fibrillation; K21.9 Gastro-esophageal reflux disease without esophagitis; Z13.31 Encounter for screening for depression
CPT/HCPCS: 80053; 80061; 81003; 81015; 82043; 82306; 82570; 83036; 84443; 84681; 85025

== ENCOUNTER → 2025-02-03 09:49 | Outpatient (REF) | payer MEDICARE, OTHER, SELFPAY | LOC: RAD 09:49 | PROVIDERS: ATTENDING PHYSICIAN Nurse Practitioner Family | DX: R13.10 Dysphagia, unspecified (principal) | CPT/HCPCS: 74221 ==

== ENCOUNTER → 2025-03-19 09:16 | Outpatient (REF) | payer MEDICARE, OTHER, SELFPAY ==
[2025-03-19 11:51] LABS: Hematocrit 41.7 % (39.0-52.0); Hemoglobin 13.2 g/dL (13.0-18.0); Mean Corp Hgb Conc. 31.7 g/dL (33.0-37.0); Mean Corpuscular Volume 84.4 fL (80.0-94.0); Nucleated Red Blood Cells % 0 % (-); Platelet Count 317 10^3/uL (130-400); Red Cell Dist. Width 16.5 % (11.5-14.5)
[2025-03-19 11:58] LABS: ALT (SGPT) 49 U/L (0-50); AST (SGOT) 31 U/L (17-59); Albumin 3.9 g/dl (3.5-5.0); Alkaline Phosphatase 81 U/L (38-126); Blood Urea Nitrogen 26 mg/dl (9-20); Calcium 8.9 mg/dl (8.4-10.2); Carbon Dioxide 28 mmol/L (22-30); Chloride 107 mmol/L (98-107); Glucose 99 mg/dl (70-99); Potassium 4.6 mmol/L (3.5-5.1); Sodium 140 mmol/L (135-145); Total Protein 6.5 g/dl (6.3-8.2); eGFR 54.51
== END ==
LOC: OLABWIL 09:16
PROVIDERS: ATTENDING PHYSICIAN Internal Medicine
DX: C83.38 Diffuse large B-cell lymphoma, lymph nodes of multiple sites (principal)
CPT/HCPCS: 36415; 80053; 82784; 85025

== ENCOUNTER 2025-04-30 13:36 | Inpatient (IN) | payer MEDICARE, OTHER, SELFPAY ==
[2025-04-30] VITALS (7 sets, daily range): BP systolic 115–147; BP diastolic 63–79; BMI 28.2
--- NOTE | 2025-04-30 11:21 | ED.GENMED ---
History of Present Illness
<Dez Hamilton PA-C - Last Filed: 04/30/25 16:21>
General
Chief Complaint: Change in Mental Status
Source: patient and ambulance crew
Time Seen by Provider: 04/30/25 11:19
History of Present Illness
History of Present Illness:
84-year-old male with past medical history of mild cognitive impairment, CVA, previous seizure disorder, non-Hodgkin's lymphoma, extensive cardiac history, uay-ixejvxh-ilenfnobe diabetes presenting to the emergency department from [facility]
Living with EMS for evaluation after family member thought patient was a little bit more confused than baseline that they noticed this morning. Patient himself is without any concerns. He denies any pain, no reports of nausea or vomiting, bowel
changes or urinary symptoms. Patient feels as if he is in his usual state of health.
Past History
<Dez Hamilton PA-C - Last Filed: 04/30/25 16:21>
Past History
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
vitamin D deficiency, presumed essential tremor) and Other (Nephrolithiasis)
ED Past Surgical History: Other (splenectomy)
Social History
Tobacco: Former smoker
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
Drug: None
Personal:
Living: half-way
Family History
Family History: Negative Diabetes, Hypertension or CAD
Review of Systems
<Dez Hamilton PA-C - Last Filed: 04/30/25 16:21>
Review of Systems
All Other Systems: ROS reviewed and negative except as documented in HPI and ROS
Phy Exam
<Dez Hamilton PA-C - Last Filed: 04/30/25 16:21>
Physical Exam
Physical Exam:
GENERAL: Alert , in no apparent distress, does answer some questions appropriately but seems slightly confused
HEAD: Normocephalic atraumatic
EYE: conjunctiva clear
NECK: Supple
ENT: o/p clr, mmm.
CARDIAC: Regular rate and rhythm
LUNGS: Clear breath sounds bilaterally, no acute respiratory distress, no wheezes/rales/rhonchi
NEUROLOGICAL: Alert and oriented
SKIN: Warm and dry, skin intact.
MUSCULOSKELETAL: well perfused.
PSYCH: Normal and appropriate interaction.
Scores
<Dez Hamilton PA-C - Last Filed: 04/30/25 16:21>
Heart Failure Risk
Heart Failure Risk Score: Not Applicable
Heart Score for Chest Pain Patients
STEMI patient?: Not applicable
Withdrawal Assessment of Alcohol
Withdrawal Assessment Completed?: Not applicable
Course
<Dez Hamilton PA-C - Last Filed: 04/30/25 16:21>
Orders/Labs/Results
Orders:
Orders
04/30/25 11:20
CT Head W/o Iv Contrast Urgent
Comment:
Reason For Exam: confusion, hx cognitive impairment
04/30/25 11:37
Basic Metabolic Panel Urgent
Complete Blood Count/With Diff Urgent
04/30/25 11:56
Electrocardiogram (*1) Urgent
Reason for Study: TIA/Stroke
CT Head & Neck Angio W/wo IV Urgent
Comment:
Reason For Exam: left sided weakness
EKG- Treatment ONCE
04/30/25 12:12
Aspirin Chewable [Low Strength Aspirin] 324 mg PO NOW STA
Clopidogrel Bisulfate [Plavix] 300 mg PO NOW STA
04/30/25 12:13
Comprehensive Metabolic Panel Urgent
PTT Urgent
Prothrombin Time Urgent
Troponin I Urgent
04/30/25 12:45
Consult Neurology [NEUROLOGY CONSULT] Urgent
Consulting Provider: Bo Talavera
Was physician already notified: Yes
04/30/25 13:17
Admit/Transfer Patient As Directed
Co-Sign Provider:
Level of Care: Inpatient admission
Assign to:: IMU- Intermediate Care
Physician / Group: mehnaz
Diagnosis: Acute Stroke
Reason for Hospitalization: Acute Stroke
Expected length of stay greater than two midnights?: Yes
ELOS- Estimated Length of Stay in days: 3
I certify the patient meets the requirements for IP care: Yes
PRN Pain Medication Management As Directed
May give lesser potent ordered pain med per pt: Yes
preference::
Protocol:: Medication orders for pain may be administered in a
manner that supports deferring to patient preference
when the pt is:
- Requesting an ordered lesser potent pain medication.
Least to most potent pain medications are defined
as: acetaminophen < NSAID < tramadol < opioids
(morphine, oxycodone, hydromorphone).
- Requesting a lesser dose of the same medication IF
ORDERED.
- Requesting a less intrusive route of administration
if both routes are prescribed by the provider (PO <
IV).
04/30/25 13:18
Code Status As Directed
Resuscitation Status: Full Code
04/30/25 13:32
Urinalysis Reflex To Culture Urgent
Date Specimen was Collected: 04/30/25
Time Specimen was Collected: 13:30
Urine Microscopic Reflex Cult Urgent
Abnormal Lab Results
04/30/25 04/30/25 04/30/25
11:37 12:13 13:32
WBC 16.2 H 10^3/uL
(4.8-10.8)
MCH 26.4 L pg
(27.0-31.0)
MCHC 32.2 L g/dL
(33.0-37.0)
RDW 15.6 H %
(11.5-14.5)
MPV 10.7 H fL
(7.4-10.4)
Abs Immat Gran (auto) 0.1 H 10^3/uL
(0-0.05)
Absolute Neuts (auto) 12.8 H 10^3/uL
(1.4-6.5)
Absolute Monos (auto) 1.6 H 10^3/uL
(0.1-0.6)
Immature Gran % 0.6 H %
(0-0.5)
Neutrophils % 78.8 H %
(42.2-75.2)
Lymphocytes % 10.8 L %
(20.5-51.1)
Monocytes % 9.7 H %
(1.7-9.3)
Carbon Dioxide 21 L mmol/L
(22-30)
BUN 41 H mg/dl 41 H mg/dl
(9-20) (9-20)
Creatinine 1.4 H mg/dL 1.4 H mg/dL
(0.7-1.3) (0.7-1.3)
Glucose 168 H mg/dl 176 H mg/dl
(70-99) (70-99)
Ur Occult Blood Reflex 4+ A
(Negative)
Urine RBC 30-40 A /HPF
(0-2)
Urine Bacteria (Reflex) Few A
(Negative)
Urine Glucose 4+ A
(Negative)
Urine Albumin (Reflex) 2+ A
(Neg - Trace)
04/30/25 11:37
04/30/25 12:13
Vital Signs
Initial and Last Documented VS:
Initial Vital Signs
Pulse Resp BP
84 16 134/79
04/30/25 11:24 04/30/25 11:24 04/30/25 11:24
Last Documented Vital Signs
Temp Pulse Resp BP Pulse Ox
98.2 F 69 18 147/73 98
04/30/25 12:00 04/30/25 15:45 04/30/25 15:45 04/30/25 12:21 04/30/25 11:36
<Robosn Phillips, DO - Last Filed: 04/30/25 11:26>
Orders/Labs/Results
Orders:
Orders
04/30/25 11:20
CT Head W/o Iv Contrast Urgent
Comment:
Reason For Exam: confusion, hx cognitive impairment
04/30/25 11:37
Basic Metabolic Panel Urgent
Complete Blood Count/With Diff Urgent
04/30/25 11:56
Electrocardiogram (*1) Urgent
Reason for Study: TIA/Stroke
CT Head & Neck Angio W/wo IV Urgent
Comment:
Reason For Exam: left sided weakness
EKG- Treatment ONCE
04/30/25 12:12
Aspirin Chewable [Low Strength Aspirin] 324 mg PO NOW STA
Clopidogrel Bisulfate [Plavix] 300 mg PO NOW STA
04/30/25 12:13
Comprehensive Metabolic Panel Urgent
PTT Urgent
Prothrombin Time Urgent
Troponin I Urgent
04/30/25 12:45
Consult Neurology [NEUROLOGY CONSULT] Urgent
Consulting Provider: Bo Talavera
Was physician already notified: Yes
04/30/25 13:17
Admit/Transfer Patient As Directed
Co-Sign Provider:
Level of Care: Inpatient admission
Assign to:: IMU- Intermediate Care
Physician / Group: mehnaz
Diagnosis: Acute Stroke
Reason for Hospitalization: Acute Stroke
Expected length of stay greater than two midnights?: Yes
ELOS- Estimated Length of Stay in days: 3
I certify the patient meets the requirements for IP care: Yes
PRN Pain Medication Management As Directed
May give lesser potent ordered pain med per pt: Yes
preference::
Protocol:: Medication orders for pain may be administered in a
manner that supports deferring to patient preference
when the pt is:
- Requesting an ordered lesser potent pain medication.
Least to most potent pain medications are defined
as: acetaminophen < NSAID < tramadol < opioids
(morphine, oxycodone, hydromorphone).
- Requesting a lesser dose of the same medication IF
ORDERED.
- Requesting a less intrusive route of administration
if both routes are prescribed by the provider (PO <
IV).
04/30/25 13:18
Code Status As Directed
Resuscitation Status: Full Code
04/30/25 13:32
Urinalysis Reflex To Culture Urgent
Date Specimen was Collected: 04/30/25
Time Specimen was Collected: 13:30
Urine Microscopic Reflex Cult Urgent
Abnormal Lab Results
04/30/25 04/30/25 04/30/25
11:37 12:13 13:32
WBC 16.2 H 10^3/uL
(4.8-10.8)
MCH 26.4 L pg
(27.0-31.0)
MCHC 32.2 L g/dL
(33.0-37.0)
RDW 15.6 H %
(11.5-14.5)
MPV 10.7 H fL
(7.4-10.4)
Abs Immat Gran (auto) 0.1 H 10^3/uL
(0-0.05)
Absolute Neuts (auto) 12.8 H 10^3/uL
(1.4-6.5)
Absolute Monos (auto) 1.6 H 10^3/uL
(0.1-0.6)
Immature Gran % 0.6 H %
(0-0.5)
Neutrophils % 78.8 H %
(42.2-75.2)
Lymphocytes % 10.8 L %
(20.5-51.1)
Monocytes % 9.7 H %
(1.7-9.3)
Carbon Dioxide 21 L mmol/L
(22-30)
BUN 41 H mg/dl 41 H mg/dl
(9-20) (9-20)
Creatinine 1.4 H mg/dL 1.4 H mg/dL
(0.7-1.3) (0.7-1.3)
Glucose 168 H mg/dl 176 H mg/dl
(70-99) (70-99)
Ur Occult Blood Reflex 4+ A
(Negative)
Urine RBC 30-40 A /HPF
(0-2)
Urine Bacteria (Reflex) Few A
(Negative)
Urine Glucose 4+ A
(Negative)
Urine Albumin (Reflex) 2+ A
(Neg - Trace)
04/30/25 11:37
04/30/25 12:13
Vital Signs
Initial and Last Documented VS:
Initial Vital Signs
Pulse Resp BP
84 16 134/79
04/30/25 11:24 04/30/25 11:24 04/30/25 11:24
Last Documented Vital Signs
Temp Pulse Resp BP Pulse Ox
98.2 F 69 18 147/73 98
04/30/25 12:00 04/30/25 15:45 04/30/25 15:45 04/30/25 12:21 04/30/25 11:36
<Dez Hamilton PA-C - Last Filed: 04/30/25 16:21>
MDM/Problems Addressed
Differential Diagnosis Includes:
Progression of cognitive impairment
CVA
Seizure
Electrolyte imbalance
UTI
Viral syndrome
MDM/Problems Addressed:
84-year-old male presenting to the ER for reports of mild confusion earlier today, patient reporting no symptoms at present. Arrives hemodynamically stable, no respiratory complaints. Patient is oriented x 3. Will obtain labs, urine and CT of the
head. Reassessment following, will touch base with patient's family and place of living.
<Dez Hamilton PA-C - Last Filed: 04/30/25 16:21>
*Radiology
Radiology exam reviewed: radiology read reviewed
*Pulse Oximetry
SaO2: 95
Oxygen Mode of Delivery: Room air
Patient hypoxic: no
*Critical Care Note
Total Time (30-74mins, 75-104mins- exclusive of procedures): 33
comment:
Critical care statement: A total of 33 minutes of critical care time was provided for this patient. This includes management of unstable vital signs, evaluation of the patient at bedside, reviewing the patient's pertinent medical records, discussion
with consultants, review of old EKGs and review of pertinent medical records. This time with separate from time utilized to perform the aforementioned documented procedures
Data Reviewed
Review of Other/Old Records Reveals: Labs and Records
Source: patient and records
<Dez Hamilton PA-C - Last Filed: 04/30/25 16:21>
Patient Management
Discussion with other providers: Hospitalist, Under Cutting Machine Operator and Radiologist
Escalation/DeEscalation of care consider admission/obs:
Notified by radiologist that there is concerning findings on patient's CT for an acute frontal infarct. I notified the neurology team who came to me and evaluated patient, recommends treating with aspirin and Plavix. Vomiting, they ordered an MRI
to be followed patient. Hospitalist was notified and accepts for continued evaluation and treatment.
ED Attending Note
<Dez Hamilton PA-C - Last Filed: 04/30/25 16:21>
-
Portions of this chart may have been created with voice recognition software.� Occasional wrong word or��sound alike� substitutions may have occurred due to the inherent limitations of voice recognition software.
<Robson Phillips, DO - Last Filed: 04/30/25 11:26>
ED Attending Note
Patient seen and examined by attending physician: Yes
I performed the substantive portion of visit, reviewed & personally made and approve the management plan that is documented in note by myself or BABAK.: Yes
ED Attending Note:
I have seen and evaluated the patient with a [id number] encounter. I have spoken to the advance practicer provider and involved in the medical history, the physical exam, medical decision making.
Evaluation and management service: agree unless noted differently below.
Results interpretation: agree unless noted differently below.
Focused HPI: 84-year-old male presenting for evaluation of altered mental status. Per EMS, family noted that he was 'off'
Physical exam: Sitting bed comfortably. No acute distress.
Medical Decision Making: Will obtain basic blood work including urinalysis to evaluate for any medical reason for his altered mental status.
Discharge Plan
Departure
Patient Disposition: Admit
Date of Disposition: 04/30/25
Time of Disposition: 12:22
Presentation/result/management discussed w/ accepting MD/DO: Hospitalist
Discharge Problem:
Acute CVA (cerebrovascular accident)
Interventions
Interventions:
*Risk Screen - Suicide Last Done: 04/30/25 11:44
*General Assessment Last Done: 04/30/25 11:44
*Neglect/Abuse Screening Last Done: 04/30/25 11:44
*ED- Fall Risk Assessment Last Done: 04/30/25 11:44
*ED COVID-19 Vaccine History Last Done: 04/30/25 11:41
*ED Influenza Vaccine History Last Done: 04/30/25 11:41
ED- Neurological Assessment Last Done: 04/30/25 11:41
ED Swallowing Screen Last Done: 04/30/25 11:41
[2025-04-30 11:48] LABS: Hematocrit 41.6 % (39.0-52.0); Hemoglobin 13.4 g/dL (13.0-18.0); Mean Corp Hgb Conc. 32.2 g/dL (33.0-37.0); Mean Corpuscular Volume 82.1 fL (80.0-94.0); Nucleated Red Blood Cells % 0.1 % (-); Platelet Count 264 10^3/uL (130-400); Red Cell Dist. Width 15.6 % (11.5-14.5)
[2025-04-30 12:08] LABS: Blood Urea Nitrogen 41 mg/dl (9-20); Calcium 9.5 mg/dl (8.4-10.2); Carbon Dioxide 21 mmol/L (22-30); Chloride 105 mmol/L (98-107); Estimated Creatinine Clearance 37 ml/min; Glucose 168 mg/dl (70-99); Potassium 4.9 mmol/L (3.5-5.1); Sodium 137 mmol/L (135-145); eGFR 49.87
[2025-04-30] MEDS: PLAVIX 300 MG PO (12:17)
[2025-04-30] MEDS: LOW STRENGTH ASPIRIN 324 MG PO (12:17)
--- NOTE | 2025-04-30 12:24 | HPS.HSE ---
Addendum entered and electronically signed by Robert Patel MD 04/30/25 17:56:
This is an addendum to H&P written by Mel Bansal on 04/30/2025. �Patient seen and examined dependently with PA.
84-year-old male past medical history of prior CVA, seizures, paroxysmal SVT, hypertrophic obstructive cardiomyopathy, hypothyroidism, non-Hodgkin's lymphoma, type 2 diabetes, mild cognitive impairment, presenting for altered mental status. �Last
seen normal yesterday evening. �Sending weird pictures at 4 AM. Was less responsive today in the morning.�
He has history of seizures 2 years ago and would stare off and intermittently lose consciousness.�
Vital signs unremarkable. �On examination was lethargic but now improved and neurological examination unremarakable. Inappropriate behavior with nurses.�
Labs show leukocytosis of 16. �Creatinine 1.4.
CT head shows new area of decreased attenuation in the right frontal lobe extending toward the periphery and new moderate-sized area of decreased attenuation extending to the periphery in the right posterior parietal lobe. �CTA head and neck shows
no large vessel occlusion.
Patient with concern for CVA of right frontal and right posterior parietal lobe vs seizures. Patient out of the window for TNK and CT findings show no target for IAT. �Aspirin, Plavix given. Check A1c and lipid panel, check MRI brain, check echo,
neurology consulted.� May require EEG if no evidence of stroke on MRI. Neurology following.�
Original Note:
Family Physician
-
Family Physician: NOT KNOW UNKNOWN - PT DOES
Chief Complaint
-
Confusion
History of Present Illness
Patient is an 84 y/o male past medical history of prior stroke, SVT, CHF, Hypertension, DM and Seizure Disorder who presents with confusion. Patient resides in an independent apartment at [facility]. Family visits patient almost
everyday. Yesterday he was at baseline. This morning daughter noted he didn't call her in the morning like he usually does, and when she tried to call him he didn't answer. Around 10am she received a call from the facility that he was not at
baseline and he was sent to the emergency department for evaluation.
Medical History
Past Medical History
Past Medical History: Reports Other
Additional Past Medical History:
CVA
Paroxysmal Supraventricular Tachycardia
Hypertrophic Cardiomyopathy
Chronic HFpEF
Essential Hypertension
Hyperlipidemia
Diabetes Mellitus, Type II
Seizure Disorder
Hypothyroidism
BPH
Non-Hodgkin's Lymphoma
Past Surgical History: Reports Other
Additional Past Surgical History:
Splenectomy
Partial Pancreatectomy
Cholecystectomy
Right Total Knee Replacement
Social History
Tobacco: Former Smoker
Alcohol: Former
Drug: None
Personal: Single
Living: Other (Independent Apartment at [facility])
Family History
Family History: Not pertinent
Allergies / Home Medications
Allergies reflects when Allergies were last updated in [facility].
Home Medications with original date entered in [facility]
Allergy/Medication List:
Allergies
Allergy/AdvReac Type Severity Reaction Status Date / Time
Sulfa (Sulfonamide Allergy Swelling Verified 04/30/25 11:38
Antibiotics)
Home Medications
levothyroxine 125 mcg tablet 125 mcg PO DAILY Thyroid 03/01/15
metoprolol tartrate 25 mg tablet 25 mg PO BID Heart disease/condition 08/03/20
atorvastatin 80 mg tablet 80 mg PO QPM High Cholesterol 12/13/22
magnesium oxide 400 mg PO DAILY Supplement 05/13/23
brivaracetam 100 mg tablet (Briviact) 100 mg PO BID Seizures 10/01/23
metformin 1,000 mg tablet 1,000 mg PO BID Diabetes 10/01/23
furosemide 20 mg tablet 20 mg PO MOWEFR Fluid Retention/Swelling 06/13/24
acetaminophen 325 mg tablet (Tylenol) 650 mg PO DAILYPRN PRN mild pain 09/09/24
aspirin 81 mg capsule 81 mg PO DAILY 09/09/24
dapagliflozin propanediol 5 mg tablet (Farxiga) 5 mg PO DAILY 09/09/24
ibuprofen 200 mg tablet (Advil) 400 mg PO BID Pain 09/09/24
omeprazole 20 mg-sodium bicarbonate 1.1 gram capsule 1 cap PO DAILY 09/09/24
Review of Systems
-
Unable to obtain full review of systems at this time due to: Acuity
Physical Exam
Vital Signs
Vital Signs
Temp Pulse Resp BP Pulse Ox
98.2 F 66 18 134/79 98
04/30/25 12:00 04/30/25 11:36 04/30/25 11:36 04/30/25 11:36 04/30/25 11:36
Physical Exam
General: Well Developed, Well Nourished and No Apparent Distress
HEENT: NormoCephalic, Moist mucous membranes and Atraumatic
Respiratory: Clear and Non Labored Respirations
Cardiac: S1/S2, Regular Rhythm and Murmur (III/ NICOLE)
GI: Soft, Non Tender and Non Distended
Rectal: Deferred by Provider
Musculoskeletal: No Clubbing, No Cyanosis and No Edema
Skin: No Rash
Neuro: Facial Droop and Other (Patient is lethargic but easily arousable. Appears to be having difficulty follow commands particularly when it involves the left side of his body; Speech is clear)
Psych: Calm
Laboratory Results
-
04/30/25 11:37
Laboratory Tests
04/30/25
11:37
Sodium 137
Potassium 4.9
Chloride 105
Carbon Dioxide 21 L
BUN 41 H
Creatinine 1.4 H
Glucose [address]:
Findings again seen compatible with diffuse cortical atrophy with nonspecific white matter changes as described above.
New area of decreased attenuation in the right frontal lobe extending toward the periphery suggesting an evolving acute/subacute nonhemorrhagic infarction in the right HELLEN territory.
New area of decreased attenuation in the right posterior parietal lobe which could represent a subacute or chronic nonhemorrhagic infarct in the posterior aspect of the right MCA territory.
Data Reviewed
-
CT Scan: Report Reviewed by me
Lab Data: Labs Reviewed by me
Old Records: Reviewed
Impression/Plan
-
Acute Right Frontal, and Subacute Right Partial Stroke, symptoms continue to evolve
-Consult Neurology
-Consult PT/OT/Speech
-Will keep patient NPO until seem by speech due to evolving symptoms
-Patient received aspirin and Plavix load in ED - Will continue rectal aspirin until seen by speech
-Check Brain MRI
-Check HgbA1c and Lipid Panel
Paroxysmal Supraventricular Tachycardia
-Continue Metoprolol 2.5 IV q6 until able to resume oral meds
Chronic HFpEF / Hypertrophic Cardiomyopathy
-Oral meds on hold
-Monitor Is&Os and Daily Weights
Hyperlipidemia
-Resume atorvastatin when able to take oral meds
Diabetes Mellitus, Type II
-Hold metformin and Farxiga
-Monitor sugars and continue coverage insulin
Seizure Disorder
-Continue Briviact IV until able to resume oral meds
Hypothyroidism
-Resume levothyroxine when able to take oral meds
Hx Non-Hodgkin's Lymphoma
DVT proph: SCDs
Code Status: Full Code
[2025-04-30 12:34] LABS: APTT 26.5 Sec (23.4-35.0); INR 1.01; PT 13.9 Sec (11.4-14.6)
[2025-04-30 12:44] LABS: ALT (SGPT) 30 U/L (0-50); AST (SGOT) 27 U/L (17-59); Albumin 4.6 g/dl (3.5-5.0); Alkaline Phosphatase 85 U/L (38-126); Blood Urea Nitrogen 41 mg/dl (9-20); Calcium 9.7 mg/dl (8.4-10.2); Carbon Dioxide 23 mmol/L (22-30); Chloride 104 mmol/L (98-107); Estimated Creatinine Clearance 37 ml/min; Glucose 176 mg/dl (70-99); Potassium 5.0 mmol/L (3.5-5.1); Sodium 137 mmol/L (135-145); Total Protein 7.5 g/dl (6.3-8.2); eGFR 49.87
[2025-04-30 12:56] LABS: Troponin I < 0.012 ng/ml
--- NOTE | 2025-04-30 13:17 | CON.NEURO4 ---
Addendum entered and electronically signed by Bo Talavera MD 04/30/25 19:58:
I have seen and examined the patient today on 04/30/2025. I have also discussed the assessment and the management plan with nurse practitioner Gayla Blanc. I agree with the assessment and the management plan of nurse practitioner Gayla
Guanaco. Given below is my assessment and plan.
The patient is an 84 years old male who presented to the hospital with a change in mental status. The patient's daughter and [id number] were present at the bedside to provide history. The patient has a history of seizures and he is on
Briviact 100 mg twice a day. This morning the patient's daughter noted that he did not call her as he typically does and checked on him and found him to be confused. The patient's mental status improved in the ER and he gradually returned to his
baseline mental status. The patient's daughter and [id number] also confirmed that the patient has returned to his baseline mental status.
Neuro Imaging:
1. CT Head 04/30/25: New area of decreased attenuation in the right frontal lobe extending toward the periphery suggesting an evolving acute/subacute nonhemorrhagic infarction in the right HELLEN territory. New area of decreased attenuation in the
right posterior parietal lobe which could represent a subacute or chronic nonhemorrhagic infarct in the posterior aspect of the right MCA territory.
2. CTA Head/Neck 04/30/25: No large vessel occlusion.
The patient had altered mental status and the neurologic examination returned to his baseline while the patient was in the ER. Cannot rule out the patient had a seizure which was responsible for the altered mental status given the history that he
has a history of seizures and is on Briviact 100 mg twice a day. Will get MRI of the brain to follow-up on the areas concerning for infarctions as seen on the CT head. The patient is going to be on the stroke pathway. He will be on aspirin 81 mg
daily, Plavix 75 mg daily and atorvastatin 40 mg daily. Will continue with Briviact 100 mg twice a day.
Will follow.
Original Note:
Consultation - Neurology 4
-
CONSULTING PHYSICIAN: Bo Talavera, MD
REFERRING PHYSICIAN: ER/Dez Hamilton PA-C
DICTATED BY: RAMIREZ Pond
DATE/TIME OF REQUEST: 04/30/25
DATE/TIME OF CONSULTATION: 04/30/25
Reason for Consultation: Change in mental status
History of Present Illness:
This is an 84-year old male who has presented to the hospital with report of a change in mental status. Patient is followed by our outpatient Neurology service for history of a left parietal stroke, seizures, and tremor.
From most recent outpatient evaluation by RAMIREZ Richter on 01/08/25:
'(06/12/2023)
This is an 82-year-old man with a past medical history of previous left parietal ischemic infarction, epilepsy, previous alcohol use now sober, diabetes mellitus, hypertension presented to hospital with 30-minute episode of left hemibody paresthesia
of the foot hands face as well as dysarthria on 05/14/2023. He has been taking a daily obabay ASA. He denied any recent seizure activity and reported compliance with his Briviact. Neurologic examination unremarkable during evaluation in the ER
Brain MRI shows significant white matter microangiopathy in the hemispheres bilaterally but no acute infarct
MRA of the head and neck not showing any significant carotid stenosis or intracranial occlusion or stenosis.
Patient was discharged with possible diagnosis of TIA. He was discharged with a recommendation of aspirin and Plavix x21 days and to continue to aspirin alone. He is also recommended to continue atorvastatin 80 mg.
He did see his primary care doctor after his admission and was ordered a CTA head and neck which showed
Mild atherosclerosis of the carotid arterial system bilaterally without hemodynamically significant stenosis.
No evidence of internal carotid artery or vertebral artery dissection bilaterally. No significant focal proximal intracranial arterial stenosis bilaterally. Left upper lobe lung tiny nodule stable for greater than 2 years, considered benign.
He continues with aspirin, atorvastatin and Briviact. He has been seizure-free. He denies any new stroke symptoms. While he is feeling well. He reports he has not been drinking any alcohol at all.
(10/05/2023)
Was January he has been feeling well since his last appointment. He continues Briviact 100 mg twice a day with no adverse side effects. Right-handed tremor has completely resolved after focused ultrasound. He has left-hand tremor and is deciding if he
would like to get focused ultrasound for tremor on the left. This may cause increased slurred speech and balance difficulty. He is undecided if he would like to do this. Otherwise, he is feeling well and offers no complaints.
�(04/04/2024)
Pt seen in the office today. He has been feeling well and seizure free. He continues on Briviact 100 mg BID. He did have focused ultrasound for left hand and tremor has resolved. He has mild slurred speech since procedure and feels that this is
improving. He plans on having right knee surgery for arthritis.
Today (01/08/2025)
Pt seen in the office today.� Since his last visit he has been seizure free.� He continues on Briviact 100 mg twice a day.� Tremor has been well controlled after focused ultrasound.'
Patient's family at bedside report that yesterday (04/29/25) he was in his usual state when they took him for a cortisone injection. They were with him until the evening and note that he was at baseline. This morning (04/30/25) his daughter notes
that he didn't call her like he typically does. She tried calling him and there was no answer. He lives in an independent apartment at [facility] and she contacted staff to check on him. They noted that he didn't seem like himself and sent him to the ER
for evaluation. Upon seeing him, his daughter notes that he seems very drowsy and not as sharp as he typically is. CT head and CTA head/neck were obtained on arrival and are suggestive of an area of acute infarction in the right frontal lobe and
subacute infarction in the right parietal lobe. No LVO. NIHSS is currently 1 for mild right ptosis, which his daughter reports is chronic. He is not a candidate for TNK/IAT due to low NIHSS and no LVO. Patient currently is alert to verbal
stimulation and denies any headache, dizziness, vision changes, speech/swallow difficulty, numbness, and weakness. He is taking aspirin 81mg daily and briviact 100mg twice a day and denies missing any doses.
Past Medical History: Non-Hodgkin's lymphoma, seizures, essential tremor, left temporal ischemic stroke, left parietal ischemic stroke, hyperlipidemia, hypertension, CAD, CHF, nephrolithiasis, diabetes mellitus, kidney stones, macular degeneration
Surgical History:� Splenectomy, cholecystectomy, focused-ultrasound left brain
Family History:� Reviewed and noncontributory.
Social History:� Former alcohol abuse. Denies tobacco and illicit drug use.
Allergies: Sulfa.
Home Medications: See below.
Review of Symptoms:
Patient denies any fever, headache, chest pain, shortness of breath, GI or symptoms.
�Per the HPI.�All systems are reviewed negative except above.
Physical Exam:
The patient is afebrile, abdomen is nondistended, breathing is unlabored, skin is warm and dry, no edema.
NIH Stroke Scale:
I performed the NIH stroke scale on the patient on 04/30/25 at 1330. The patient scored 2 points on the NIH stroke scale assessment, which were assigned as follows: See below.
Neurologic Examination:
The patient is drowsy. Opens eyes to voice. He is oriented x3. He is able to follow commands and answer questions appropriately. There is no aphasia or dysarthria. On cranial nerve assessment, pupils are 3 mm bilateral, round and reactive to light
and accommodation. Visual martinez are full. Extraocular movements are intact. He has a mild right eye ptosis. Facial sensations are intact and bilaterally symmetrical, there is no facial asymmetry. Hearing is intact bilaterally to normal conversation
volume. Tongue palate and uvula are midline. Sternocleidomastoid strengths are full bilaterally. Motor strengths are 5/5 bilateral upper and lower extremities on medical research [place] scale. There is no drift or involuntary movement noted.
Sensations of touch are intact and bilaterally symmetrical. There was no extinction noted on double simultaneous stimulation. Coordination is intact by finger to nose bilaterally.
Lab Results: See below.
Neuro Imaging:
1. CT Head 10/16/25: Findings again seen compatible with diffuse cortical atrophy with nonspecific white matter changes as described above. New area of decreased attenuation in the right frontal lobe extending toward the periphery suggesting an
evolving acute/subacute nonhemorrhagic infarction in the right HELLEN territory. New area of decreased attenuation in the right posterior parietal lobe which could represent a subacute or chronic nonhemorrhagic infarct in the posterior aspect of the
right MCA territory.
2. CTA Head/Neck 04/30/25: No large vessel occlusion appreciated. Decreased cortical perfusion in the right frontal region, in the area of acute infarction on recent prior noncontrast head CT. This may represent small/microvascular occlusion.
Differentials for the patient's presentation include:
1. Change in mental status; exam does not entirely support CT head imaging findings that are suggestive of two new areas of infarction in the right frontal and right parietal lobes. Alternative etiologies include seizure or toxic metabolic
encephalopathy given elevated WBC count.
Patient has the following risk factors for their symptoms: Hx stroke, hx seizures, elevated WBC count
IV Tenecteplase/IAT candidacy: He is not a candidate for TNK/IAT due to low NIHSS and no LVO.
Recommendations:
-Provide loading doses of aspirin/clopidogrel x1 now. Continue DAPT with aspirin 81mg and clopidogrel 75mg daily for 21 days.
-MRI brain noncontrast pending.
-Continue Briviact 100mg BID. If mental status fails to improve, will consider EEG.
-Infectious workup per primary team.
-Goal normotension.
-NIHSS and neurological checks per unit guidelines.
-Provide patient with a stroke education packet.
-PT/OT/ST evaluations.
-LDL goal <70. LDL is 73. Continue home atorvastatin 80mg daily
-Goal normoglycemia, hbA1c is 6.7.
-DVT prophylaxis.
Discussed patient care with: Dr. Talavera, the patient, patient's family
Vital Signs and Labs
-
Vital Signs and Labs:
Vital Signs
Temp Pulse Resp BP Pulse Ox
98.2 F 80 18 147/73 98
04/30/25 12:00 04/30/25 12:21 04/30/25 12:21 04/30/25 12:21 04/30/25 11:36
Lab Results
04/30/25 11:37
04/30/25 12:13
PT 13.9 Sec (11.4-14.6) 04/30/25 12:13
INR 1.01 04/30/25 12:13
APTT 26.5 Sec (23.4-35.0) 04/30/25 12:13
Sodium 137 mmol/L (135-145) 04/30/25 12:13
Potassium 5.0 mmol/L (3.5-5.1) 04/30/25 12:13
BUN 41 mg/dl (9-20) H 04/30/25 12:13
Glucose 176 mg/dl (70-99) H 04/30/25 12:13
Calcium 9.7 mg/dl (8.4-10.2) 04/30/25 12:13
Medications
-
Active Medications
Generic Name Dose Route Start Last Admin
Trade Name Beckie PRN Reason Stop Dose Admin
Sodium Chloride 0 flush 04/30/25 15:00
Sodium Chloride 0.9% (Flush) Syringe IV 05/28/25 14:59
PER PROTOCOL MARIPOSA
Home Medications
�Medication �Instructions �Recorded
levothyroxine 125 mcg tablet 125 mcg PO DAILY Thyroid 03/01/15
metoprolol tartrate 25 mg tablet 25 mg PO BID Heart 08/03/20
disease/condition
atorvastatin 80 mg tablet 80 mg PO QPM High Cholesterol 12/13/22
magnesium oxide 400 mg PO DAILY Supplement 05/13/23
brivaracetam 100 mg tablet 100 mg PO BID Seizures 10/01/23
(Briviact)
metformin 1,000 mg tablet 1,000 mg PO BID Diabetes 10/01/23
furosemide 20 mg tablet 20 mg PO MOWEFR Fluid 06/13/24
Retention/Swelling
acetaminophen 325 mg tablet 650 mg PO DAILYPRN PRN mild pain 09/09/24
(Tylenol)
aspirin 81 mg capsule 81 mg PO DAILY 09/09/24
dapagliflozin propanediol 5 mg 5 mg PO DAILY 09/09/24
tablet (Farxiga)
ibuprofen 200 mg tablet (Advil) 400 mg PO BID Pain 09/09/24
omeprazole 20 mg-sodium 1 cap PO DAILY 09/09/24
bicarbonate 1.1 gram capsule
NIH Stroke Score
Subsequent NIH Scale
Date of Subsequent NIH Scale: 04/30/25
Time of Subsequent NIH Scale: 13:30
NIH Stroke Score
Level of Consciousness: 1 - Arousable
LOC Questions: 0-Answers both correctly
LOC Commands: 0-Performs both correctly
Best Horizontal Gaze: 0-Normal
Visual Martinez: 0=Normal, no visual loss
Facial Palsy: 1=Minor paralysis
Motor - Right Arm: 0=No drift 10 seconds
Motor - Left Arm: 0=No drift 10 seconds
Motor - Right Le-No drift 5 seconds
Motor - Left Le-No drift 5 seconds
Limb Ataxia: 0-Absent
Sensation: 0-Normal
Best Language: 0-No aphasia
Dysarthria: 0-Normal
Extinction and Inattention: 0-No abnormality
NIH Total Score:: 2
Modified Wiley (mRS) Score
Modified Wiley Scale (mRS): No significant disability. Able to carry out usual activities.
Score: 1
Alteplase Contraindication
Inclusion and Exclusion criteria reviewed: Yes
IAT Contraindications: NIHSS < 6 and Imaging doesn't show large vessel occlusion as cause of stroke
[2025-04-30] MEDS: BRIVIACT 100 MG IV (14:24)
[2025-04-30 14:27] LABS: Urine Character Clear (Clear)
[2025-04-30 14:52] LABS: Urine Red Blood Cell 30-40 /HPF (0-2)
[2025-04-30 15:01] LABS: Urine White Cell 0-2 /HPF (0-5)
[2025-04-30 18:12] LABS: Glucose - Point of Care 132 mg/dl (70-99)
[2025-04-30] MEDS: LIPITOR 80 MG PO (18:27)
[2025-04-30] MEDS: NOVOLOG FLEXPEN-LOW RESISTANCE SC (18:28)
[2025-04-30] MEDS: NSS 1000 IV (18:29)
--- NOTE | 2025-04-30 20:11 | EDRN ---
Family reporting patient having another 'episode' patient's left foot tingly, very drowsy and poking his face repeatedly. No changes in NIH. [facility] NURSE Tom notified.
[2025-04-30] MEDS: LOPRESSOR 25 MG PO (20:48)
[2025-04-30] MEDS: BRIVIACT 100 MG PO (20:48)
[2025-05-01] VITALS (21 sets, daily range): BP systolic 113–174; BP diastolic 62–122; PULSE 50–80; O2SAT 95
[2025-05-01] MEDS: SYNTHROID 125 MCG PO (04:50)
[2025-05-01] MEDS: NSS 1000 IV (04:50)
[2025-05-01 05:13] LABS: Hematocrit 38.8 % (39.0-52.0); Hemoglobin 12.6 g/dL (13.0-18.0); Mean Corp Hgb Conc. 32.5 g/dL (33.0-37.0); Mean Corpuscular Volume 81.0 fL (80.0-94.0); Platelet Count 278 10^3/uL (130-400); Red Cell Dist. Width 15.4 % (11.5-14.5)
[2025-05-01 05:47] LABS: Blood Urea Nitrogen 30 mg/dl (9-20); Calcium 9.1 mg/dl (8.4-10.2); Carbon Dioxide 23 mmol/L (22-30); Chloride 107 mmol/L (98-107); Estimated Creatinine Clearance 52 ml/min; Glucose 128 mg/dl (70-99); HDL Cholesterol 38 mg/dl; LDL Cholesterol, Calculated 75 mg/dl; Potassium 4.9 mmol/L (3.5-5.1); Sodium 138 mmol/L (135-145); Very Low Density Lipoprotein 16 mg/dl (0-30); eGFR > 60.00
[2025-05-01 08:13] LABS: Glucose - Point of Care 112 mg/dl (70-99)
[2025-05-01] MEDS: NOVOLOG FLEXPEN-LOW RESISTANCE SC ×2 (08:20→17:51)
[2025-05-01] MEDS: LOPRESSOR 25 MG PO ×2 (08:21→20:23)
[2025-05-01] MEDS: ASPIR LOW (ENTERIC COATED) 81 MG PO (08:21)
[2025-05-01] MEDS: BRIVIACT 100 MG PO ×2 (08:21→20:23)
[2025-05-01] MEDS: PROTONIX 40 MG PO (08:21)
[2025-05-01] MEDS: PLAVIX 75 MG PO (08:21)
[2025-05-01 09:09] LABS: Glycohemoglobin (HgbA1c) 6.8 % (4.0-5.6)
--- NOTE | 2025-05-01 10:10 | W.PN.HOSP.TC ---
Today's Communication/Plan
-
.
Assessment / Plan
Assessment / Plan
Physical Exam
General: No Apparent Distress and Comfortable
HEENT: Anicteric, Moist mucous membranes and left sided facial droop?
Respiratory: Clear; No Wheezes
Cardiac: S1 S2
GI: Soft, Non Tender and Non Distended
Genito-urinary: No costovertebral tender. No De Oliveira
Musculoskeletal: No Clubbing, No Cyanosis and No Edema
Skin: Warm and Dry; No Jaundice
Neuro: AAO x 3, facial droop, left neglect, PT is seeing him now for gait
Psych: Calm and Intact Judgment/Insight
81 years old male presented with change in MS
# Acute right frontal stroke
Hx of CVA in past
Was taking aspirin daily
Currently, pt denies symptoms
Will benefit from rehab as he was fairly independent as per daughter, drove his car. Recent OA issues with steroid injection in both feet a day prior to this incident
f/ w PT/OT, consulted Dr Mahoney
Echo of the heart
Hemoglobin A1c 6.8, continue with Farxiga. Prior study was 7.2 in 2023
Will consult cardiology regarding cardiac arrhythmia, recent stroke
If no A-fib history. Will continue dual antiplatelet therapy but patient should continue on Plavix afterwards
Continue with the statin therapy. LDL 75, total cholesterol 129
Appreciate neurology input
# leukocytosis, trending down. No fever. Recent steroid injection for osteoarthritis.
# Acute kidney injury, resolved
# History of seizures
No recurrent seizures
C/w seizure medication
#History of hypertrophic obstructive cardiomyopathy/paroxysmal supraventricular tachycardia, continue metoprolol, monitor on telemetry. No chest pain
. No shortness of breath
Will follow-up with cardiology recommendation
# History of hypertension, slightly uncontrolled, continuing metoprolol, restart Lasix
At low-dose amlodipine to better control
#Hypothyroidism, continue with Synthroid
#History of essential tremor
#History of BPH with history of kidney stones/hydronephrosis.� Monitor for urinary retention
Total time spent to see the patient on the floor, examine the patient, review data and lab results, discussed treatment plan with patient, family, nursing staff, clothing consultant around 55-minute
Anticipated Discharge: > 48 hours
Subjective/Interval History
-
Date of Service: May 01, 2025
No complaints
Objective Data
-
Labs:
Laboratory Results
05/01/25
05:05
WBC 15.9 H
Hgb 12.6 L
Hct 38.8 L
Plt Count 278
Sodium 138
Potassium 4.9
Chloride 107
Carbon Dioxide 23
BUN 30 H
Creatinine 1.0
Glucose 128 H
Calcium 9.1
Vital Signs:
Vital Signs
Temp Pulse Resp BP Pulse Ox
97.8 F 75 16 151/67 98
05/01/25 07:26 05/01/25 09:30 05/01/25 09:30 05/01/25 07:26 05/01/25 07:15
--- NOTE | 2025-05-01 10:17 | PTOTSP ---
[facility]NA[facility] Evaluations
Patient endorsed some chronic sensation of stasis with solids and pills prior to admission, without prior signs of aspiration complications such as PNA. Oral/pharyngeal swallowing suspected to be grossly WFL based on clinical bedside swallowing
evaluation though patient with acute on chronic risk factors (i.e., acute on chronic CVAs).
Motor speech at baseline. No obvious aphasia at the conversation level though spontaneous speech highly tangential. Suspect cognitive linguistic impairments with changes to executive function (i.e., initiation, self-monitoring), attention, and
memory. Further testing warranted at the acute care level. Patient with known baseline mild cognitive impairments but driving and working prior to admission.
Recommend:
1. Regular, Thin Liquids
2. Medications: 1-2 pills at a time with water
3. Strategies: upright to 90 degrees, small sips/bites, slow rate
4. Dysphagia tx f/u to determine if further instrumental testing warranted
5. Continued cognitive linguistic evaluation as able/appropriate
--- NOTE | 2025-05-01 10:47 | EDCM ---
Chart reviewed and spoke with patient and dtr Aretha. Lives in [facility] Independent, working and driving
DME RW [employer] raised toilet seat shower chair
PCP Silvino Garcia
Has RX plan
[facility]acy [facility]
hx of [facility]
no hx of SNF
pt wants to go home vs acute rehab
[2025-05-01] MEDS: NORVASC 2.5 MG PO ×2 (11:13→20:23)
[2025-05-01] MEDS: LASIX 20 MG PO (11:14)
--- NOTE | 2025-05-01 11:48 | CON.CAR ---
Addendum entered and electronically signed by Chente Domingo MD 05/01/25 12:42:
I saw and examined the patient independently and performed majority of MDM.
The OPERATIONS STAFF SPECIALIST SECURITY's note was reviewed and I agree with the note with changes/additions below.
Comment: 84 yo male with PMH of HOCM, mild , prior CVA, prior DVT is admitted with acute CVA. He presented with lethargy and confusion. No CP/SOB. Exam with RRR, III/ systolic murmur at RUSB, no edema. Echo: EF 60-65%, mild , mild AR, no PFO.
Acute CVA. ASA/Plavix per neuro. Monitor tele for A fib. Intensify statin.
Mild . Stable on echo.
Original Note:
Consultation
Consultation Request
Date/Time Consultation Requested: 05/01/25 10:15a
Date/Time Consultation Performed: 05/01/25 11a
Requesting Provider: Dr. Maria
Performing Provider: RAMIREZ Keyes for Dr. Domingo
Reason for Consultation: CVA
Medical History
-
Chief Complaint: CVA/fatigue/confusion
History of Present Illness:
Mr. Biggs is an 84 yo male (known to Dr. Taylor) with HOCM, mild , PSVT, h/o DVT treated with Eliquis, HLD, NIDDM, non-Hodgkin's lymphoma 01/2020 s/p chemo/XRT, CVA 10/2022, seizures and Parkinson's s/p intracranial MRI-guided high intensity
ultrasound focused stereotactic left sided ablation 12/2022, who presents to the ER with confusion and lethargy noted by family. He is admitted by hospitalist for CVA on head CT. We are consulted for CVA, question of Afib history. He does not have
a history of Afib, PSVT previously w/o recurrence since on Lopressor 25mg BID. He denies any cardiac complaints currently. He is lethargic and fell asleep during our interview. Tele w/o arrhythmia, sinus bradycardia in the 40s when he is
sleeping. Hisory also obtained from his daugther, who is in the room, while he was sleeping.
Past Medical History
Past Medical History: Other (as above)
Past Surgical History: Cholecystectomy (02/2023), Orthopedic (left TKA 06/2024) and Other (as above, splenectomy 08/2019)
Social History
Tobacco: Former Smoker
Alcohol: None
Personal:
Living: Alone (independent living at [facility])
Employment: Retired
Family History
Family History: Reviewed & Not Pertinent
Allergies / Home Medications
Allergy/AdvReac Type Severity Reaction Status Date / Time
Sulfa (Sulfonamide Allergy Swelling Verified 04/30/25 11:38
Antibiotics)
�Medication �Instructions �Recorded �Confirmed �Type
levothyroxine 125 mcg tablet 125 mcg PO DAILY Thyroid 03/01/15 04/30/25 History
metoprolol tartrate 25 mg tablet 25 mg PO BID Heart 08/03/20 04/30/25 History
disease/condition
atorvastatin 80 mg tablet 80 mg PO QPM High Cholesterol 12/13/22 04/30/25 History
magnesium oxide 400 mg PO DAILY Supplement 05/13/23 04/30/25 History
brivaracetam 100 mg tablet 100 mg PO BID Seizures 10/01/23 04/30/25 History
(Briviact)
metformin 1,000 mg tablet 1,000 mg PO BID Diabetes 10/01/23 04/30/25 History
furosemide 20 mg tablet 20 mg PO MOWEFR Fluid 06/13/24 04/30/25 History
Retention/Swelling
acetaminophen 325 mg tablet 650 mg PO DAILYPRN PRN mild pain 09/09/24 04/30/25 History
(Tylenol)
aspirin 81 mg capsule 81 mg PO DAILY 09/09/24 04/30/25 History
dapagliflozin propanediol 5 mg 5 mg PO DAILY 09/09/24 04/30/25 History
tablet (Farxiga)
ibuprofen 200 mg tablet (Advil) 400 mg PO BID Pain 09/09/24 04/30/25 History
omeprazole 20 mg-sodium 1 cap PO DAILY 09/09/24 04/30/25 History
bicarbonate 1.1 gram capsule
Review of Systems
-
History Source: Patient
All other systems: Negative unless noted
Physical Exam
Vital Signs
Temp Pulse Resp BP Pulse Ox
97.8 F 75 16 151/67 98
05/01/25 07:26 05/01/25 09:30 05/01/25 09:30 05/01/25 07:26 05/01/25 07:15
Lab Results
05/01/25 05:05
05/01/25 05:05
Troponin I < 0.012 ng/ml 04/30/25 12:13
Physical Exam
General: Well Developed, Well Nourished and Other (lethargic and falls asleep while talking)
HEENT: Normocephalic and Anicteric
Respiratory: Clear and Non Labored Respirations
Cardiac: S1/S2 and Regular Rhythm
Breast: Deferred by me
GI: Soft, Non Tender and Normal Bowel Sounds
Rectal: Deferred by Provider
Genito-urinary: Clear Urine
Musculoskeletal: No Clubbing, No Cyanosis and No Edema
Skin: Warm and Dry
Neuro: AO x 3 (lethargic)
Psych: Calm
Impression / Plan
-
CVA - acute.
- brain MRI with large 5.4 cm acute transcortical infarct in anteromedial frontal lobe (right anterior cerebral artery territory) containing severe cytotoxic edema and multiple punctate foci of intraparenchymal microhemorrhage. Moderate-sized
subacute to chronic transcortical infarct in the right temporal and parietal lobes.
- neurology following.
- ASA, Plavix.
- on Lipitor 80mg with LDL 75, goal LDL < 70, so recommend switching Lipitor to Crestor 40mg daily.
- echo unchanged from previous 07/2023.
- monitor on tele, no Afib seen as of yet.
- prior CVA 10/2022.
PSVT - history of, no recurrence since on Lopressor.
- monitor on tele.
HFpEF - chronic, stable.
- no overt HF on exam.
Aortic stenosis - mild on echo.
- asymptomatic.
- monitor.
Seizures - on meds, continue.
- per neurology.
Data Reviewed
-
EKG: Tracing Personally Visualized and interpreted
MRI: Report Reviewed by me (large 5.4 cm acute transcortical infarct in anteromedial frontal lobe (right anterior cerebral artery territory) containing severe cytotoxic edema and multiple punctate foci of intraparenchymal microhemorrhage.
Moderate-sized subacute to chronic transcortical infarct in the right temporal and parie)
Labs: Labs Reviewed by me
Old Records: Reviewed
[2025-05-01 11:54] LABS: Glucose - Point of Care 151 mg/dl (70-99)
[2025-05-01] MEDS: NOVOLOG FLEXPEN-LOW RESISTANCE 1 UNITS SC (12:44)
--- NOTE | 2025-05-01 13:08 | W.PN.NEURO.1 ---
Addendum entered and electronically signed by Bo Talavera MD 05/01/25 20:48:
I have seen and examined the patient on 05/01/2025. I have also discussed the patient's assessment and the management plan with nurse practitioner Meka osuna and I agree with her note below. Given below is my assessment and the management plan.
The patient is an 84 years old male who presented to the hospital with a change in mental status. The patient has a history of seizures and he is on Briviact 100 mg twice a day. Yesterday morning the patient's daughter noted that he did not call
her as he typically does and she checked on him and found him to be confused. The patient's mental status improved in the ER and he gradually returned to his baseline mental status. The patient's daughter and [id number] also confirmed that
the patient has returned to his baseline mental status.
MRI of the brain was done today that showed a large acute infarct in the right frontal lobe in the right anterior cerebral artery territory and in the right middle cerebral artery territory.
The distribution of the infarcts on MRI appear to be secondary to emboli, likely cardioemboli.
On neurologic examination, the patient's mental status has returned to his baseline as per his daughter who was present at the bedside. The patient has mild weakness of the left upper and lower extremities and the strength in the left upper and
lower extremities is about 4/5, while the strength in the right upper and lower extremities is 5/5. The speech is clear. The cranial nerves II to XII grossly intact. The cerebellar exam does not show limb ataxia.
The plan is to get Holter monitoring.
The echocardiogram showed a LVEF of 60 to 65% and the atrial septum was intact.
The plan is to keep the patient on aspirin Plavix and rosuvastatin. He will also be on Briviact for seizures, at home dose.
Will follow.
Original Note:
Today's Communication / Plan
-
Acute stroke noted on MRI brain
Continue ASA, Plavix and stating
Continue therapy evaluations
Continue Briviact
Neuro Assessment/Plan
Assessment
This an 84 years old male patient who presented to the hospital with a change in mental status. He has a history of seizures and has been maintained on Briviact 100 mg twice a day. Yesterday (04/30/2025) daughter noted that he did not call her as
he typically does and checked on him and found him to be confused. The patient's mental status improved in the ER and he gradually returned to his baseline mental status.
Change in mental status likely secondary to new stroke noted on MRI brain vs breakthrough seizure.
Neuro Imaging:
1. CT Head 04/30/25: New area of decreased attenuation in the right frontal lobe extending toward the periphery suggesting an evolving acute/subacute nonhemorrhagic infarction in the right HELLEN territory. New area of decreased attenuation in the
right posterior parietal lobe which could represent a subacute or chronic nonhemorrhagic infarct in the posterior aspect of the right MCA territory.
2. CTA Head/Neck 04/30/25: No large vessel occlusion.
3. MRI brain 05/01/2025:
1. LARGE 5.4 cm ACUTE TRANSCORTICAL INFARCT in the ANTEROMEDIAL RIGHT FRONTAL LOBE (right anterior cerebral artery territory) containing severe cytotoxic edema and multiple punctate foci of intraparenchymal microhemorrhage.
2. Moderate-sized subacute to chronic transcortical infarct in the right temporal and parietal lobes.
3. Severe white matter leukoaraiosis in both cerebral hemispheres.
4. Mild diffuse cerebral and cerebellar volume loss.
5. 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
Echo 05/01/2025
1. Normal left ventricular size, and systolic function. Estimated LVEF 60-65%.
2. Mild aortic stenosis. Peak gradient 32mmHg/Mean gradient 19mmHg - using an left ventricular outflow tract of 2.2cm the estimated aortic valve area is 1.6cm2. Mild aortic regurgitation.
3. The interatrial septum appears normal and intact, with no evidence of interatrial shunting by color flow Doppler.
4. Compared to 07/30/23: no significant change.
Plan
-Continue DAPT with aspirin 81mg and clopidogrel 75mg daily
-Reviewed MRI brain (+) acute stroke
-appreciate cardiology evaluation
-cardiology has switched Atorvastatin to Rosuvastatin for better efficacy
-Continue Briviact 100mg BID. If mental status fails to improve, will consider EEG.
-Goal now normotension.
-NIHSS and neurological checks per unit guidelines.
-Continue PT/OT/ST evaluations.
-Goal normoglycemia, hbA1c is 6.7.
-DVT prophylaxis.
Subjective/Objective
Subjective Data
Date of Service: May 01, 2025
Pt reports he is feeling better today. Continued mild left sided weakness.
Objective Data
Vital Signs
Temp Pulse Resp BP Pulse Ox
97.8 F 49 17 133/73 98
05/01/25 07:26 05/01/25 13:00 05/01/25 13:00 05/01/25 12:00 05/01/25 07:15
Lab Results
05/01/25 05:05
05/01/25 05:05
PT 13.9 Sec (11.4-14.6) 04/30/25 12:13
INR 1.01 04/30/25 12:13
APTT 26.5 Sec (23.4-35.0) 04/30/25 12:13
Sodium 138 mmol/L (135-145) 05/01/25 05:05
Potassium 4.9 mmol/L (3.5-5.1) 05/01/25 05:05
BUN 30 mg/dl (9-20) H 05/01/25 05:05
Glucose 128 mg/dl (70-99) H 05/01/25 05:05
Calcium 9.1 mg/dl (8.4-10.2) 05/01/25 05:05
LDL Cholesterol, Calc 75 mg/dl 05/01/25 05:05
Patient Allergies
Sulfa (Sulfonamide Antibiotics) Allergy (Verified 04/30/25 11:38)
Swelling
Review of Systems
-
History Source: Patient
All other systems: Reviewed and negative
Constitutional: No Symptoms
EENT: No Symptoms Reported
Respiratory: No Symptoms
Cardiac: No Symptoms
Abdomen/GI: No Symptoms
Genitourinary: Other (hess present)
Musculoskeletal: Other (left sided weakness)
Skin: No Symptoms
Neuro: Weakness (mild left upper and lower extremity weakness) and See existing Neuro Note
Endocrine: No Symptoms
Physical Exam
-
General: Well Developed, Well Nourished and No Apparent Distress
Eyes: Round OU
HEENT: Normocephalic and Atraumatic
Respiratory: No Dyspnea
GI: Soft
Skin: Unremarkable
Extended Neurological Exam
Mood & Affect: Mood Unremarkable and Affect Unremarkable
Attention Span & Concentration: Awake, Alert and No Difficulty with 2 Step Request
Memory: Unremarkable
Tremor: Hand Tremor Absent and Head Tremor Absent
Involuntary Movement: None
Speech: Quality Unremarkable, Quantity Unremarkable and Rate of Production Unremarkable
Cranial Nerve II: Left Eye: Visual Martinez Grossly Intact
Cranial Nerve II: Right Eye: Visual Martinez Grossly Intact
Cranial Nerves III, IV, : Extraocular Movement: Extraocular Movement Full in all Directions
Cranial Nerve VII: Facial Symmetry: Normal Facial Symmetry
Cranial Nerve XI: Shoulder Shrug: Unremarkable
Cranial Nerve XII: Tongue Protusion: Midline
Muscle Strength, Overall: Reduced on Left (4+/5 left upper and left lower extremities) and Otherwise Intact
Pronator Drift: Drift in Left Upper Extremity and Drift in Left Lower Extremity
Coordination: [id number]-[id number] Testing Unremarkable
Data Reviewed
-
CT-A: Report Reviewed
CT Head: Report Reviewed
MRI Head: Report Reviewed
Reviewed with: Physician, Patient and Family
[2025-05-01 18:21] LABS: Glucose - Point of Care 211 mg/dl (70-99)
[2025-05-01] MEDS: NOVOLOG FLEXPEN-LOW RESISTANCE 2 UNITS SC (18:21)
[2025-05-01] MEDS: CRESTOR 40 MG PO (20:23)
[2025-05-01 21:46] LABS: Glucose - Point of Care 124 mg/dl (70-99)
--- NOTE | 2025-05-01 23:00 | PTCARENOTE ---
Pt. admitted from [facility] awake, alert, forgetful, NIH 1, transferred from stretcher to bed, call james within reach, bed alarm intact.
--- NOTE | 2025-05-01 23:30 | PTCARENOTE ---
Pt. was given Tylenol for 6/10 pain in left foot, pt. swallowed one pill at a time with water and then started to cough. Made pt. NPO, with speech consult put in.
[2025-05-01] MEDS: TYLENOL 650 MG PO (23:34)
[2025-05-02] VITALS (7 sets, daily range): BP systolic 96–162; BP diastolic 66–78; PULSE 65; BMI 26.3
[2025-05-02 06:22] LABS: Glucose - Point of Care 131 mg/dl (70-99)
[2025-05-02] MEDS: SYNTHROID 125 MCG PO (08:37)
[2025-05-02] MEDS: BRIVIACT 100 MG PO ×2 (08:37→20:35)
[2025-05-02] MEDS: ASPIR LOW (ENTERIC COATED) 81 MG PO (08:37)
[2025-05-02] MEDS: NOVOLOG FLEXPEN-LOW RESISTANCE SC ×2 (08:37→17:15)
[2025-05-02] MEDS: LOPRESSOR 25 MG PO ×2 (08:38→20:35)
[2025-05-02] MEDS: NORVASC 2.5 MG PO ×2 (08:38→20:35)
[2025-05-02] MEDS: PROTONIX 40 MG PO (08:38)
[2025-05-02] MEDS: PLAVIX 75 MG PO (08:38)
[2025-05-02] MEDS: LASIX 20 MG PO (08:38)
--- NOTE | 2025-05-02 10:58 | W.PN.HOSP.TC ---
Today's Communication/Plan
-
Await Dr Mahoney evaluation
Add holding parameters to BP medications
Assessment / Plan
Assessment / Plan
Physical Exam
General: No Apparent Distress and Comfortable
HEENT: Anicteric, Moist mucous membranes and left sided facial droop?
Respiratory: Clear; No Wheezes
Cardiac: S1 S2
GI: Soft, Non Tender and Non Distended
Genito-urinary: No costovertebral tender. No De Oliveira
Musculoskeletal: No Clubbing, No Cyanosis and No Edema
Skin: Warm and Dry; No Jaundice
Neuro: AAO x 3, facial droop, left neglect, PT is seeing him now for gait
Psych: Calm and Intact Judgment/Insight
81 years old male presented with change in MS
# Acute right frontal stroke
Hx of CVA in past
Was taking aspirin daily
Currently, pt denies symptoms
Will benefit from rehab as he was fairly independent as per daughter, drove his car. Recent OA issues with steroid injection in both feet a day prior to this incident
f/ w PT/OT, consulted Dr Mahoney
Echo of the heart
Hemoglobin A1c 6.8, continue with Farxiga. Prior study was 7.2 in 2023
Will consult cardiology regarding cardiac arrhythmia, recent stroke
If no A-fib history. Will continue dual antiplatelet therapy but patient should continue on Plavix afterwards
Continue with the statin therapy. LDL 75, total cholesterol 129
Appreciate neurology input
# leukocytosis, trending down. No fever. Recent steroid injection for osteoarthritis.
# Acute kidney injury, resolved
# History of seizures
No recurrent seizures
C/w seizure medication
#History of hypertrophic obstructive cardiomyopathy/paroxysmal supraventricular tachycardia, continue metoprolol, monitor on telemetry. No chest pain
. No shortness of breath
Will follow-up with cardiology recommendation
# History of hypertension, slightly uncontrolled, continuing metoprolol, restart Lasix
At low-dose amlodipine to better control
#Hypothyroidism, continue with Synthroid
#History of essential tremor
#History of BPH with history of kidney stones/hydronephrosis.� Monitor for urinary retention
Total time spent to see the patient on the floor, examine the patient, review data and lab results, discussed treatment plan with patient, family, nursing staff around 55 minutes
Anticipated Discharge: > 48 hours
Subjective/Interval History
-
Date of Service: May 02, 2025
No chest pain
No fevers
Objective Data
-
Vital Signs:
Vital Signs
Temp Pulse Resp BP Pulse Ox
97.9 F 63 18 157/76 95
05/02/25 07:00 05/02/25 07:00 05/02/25 07:00 05/02/25 07:00 05/02/25 08:25
I&O
05/01/25 05/02/25 05/03/25
06:59 06:59 06:59
Output Total 2500 / 2500
Balance -2500 / -2500
[2025-05-02 12:04] LABS: Glucose - Point of Care 190 mg/dl (70-99)
[2025-05-02] MEDS: NOVOLOG FLEXPEN-LOW RESISTANCE 1 UNITS SC (12:21)
--- NOTE | 2025-05-02 15:14 | CM ---
CM reviewed chart, patient seen in chair with significant other bedside.
Discussed therapy recommendations of Acute Rehab- PMR consulted.
Patient agreeable to referral to [facility], placed in [facility], discussed will review on Sunday regarding ability to accept- no auth required.
Patient reports his son, Mynor, and daughter, Caterina, are involved in his care.
CM will continue to follow for all d/c needs.
Plan; Acute Rehab-referral to [facility], will need to review Sunday, PMR consulted
--- NOTE | 2025-05-02 16:41 | W.PN.CD ---
Today's Communication / Plan
-
continue ASA/Plavix/statin
monitor tele for A fib
Impression / Plan
-
CVA - acute.
- brain MRI with large 5.4 cm acute transcortical infarct in anteromedial frontal lobe (right anterior cerebral artery territory) containing severe cytotoxic edema and multiple punctate foci of intraparenchymal microhemorrhage. Moderate-sized
subacute to chronic transcortical infarct in the right temporal and parietal lobes.
- neurology following.
-echo: EF 60-65%, mild , mild AR
- ASA, Plavix.
- crestor 40mg
- monitor tele for A fib; if no A fib, will arrange for extended holter as outpatient
PSVT - history of, no recurrence since on Lopressor.
- monitor on tele.
PVC's
-on tele, no sxs
HFpEF - chronic, stable.
- continue PO lasix
Aortic stenosis - mild on echo.
- asymptomatic.
- monitor.
Seizures - on meds, continue.
- per neurology.
Physical Exam
Vital Signs/Labs
Vital Signs
Temp Pulse Resp BP Pulse Ox
97.8 F 85 20 96/70 97
05/02/25 11:00 05/02/25 11:00 05/02/25 11:00 05/02/25 11:00 05/02/25 11:00
05/01/25 05/02/25 05/03/25
06:59 06:59 06:59
Actual Weight 81.6 kg 76.158 kg
05/01/25 05:05
05/01/25 05:05
PT 13.9 Sec (11.4-14.6) 04/30/25 12:13
INR 1.01 04/30/25 12:13
APTT 26.5 Sec (23.4-35.0) 04/30/25 12:13
Triglycerides 81 mg/dl (10-149) 05/01/25 05:05
LDL Cholesterol, Calc 75 mg/dl 05/01/25 05:05
VLDL Cholesterol, Calc 16 mg/dl (0-30) 05/01/25 05:05
HDL Cholesterol 38 mg/dl 05/01/25 05:05
LAB Results
04/30/25
12:13
Troponin I < 0.012
Physical Exam
Constitutional: No acute distress and Comfortable
EENT: Moist mucous membranes
Cardiovascular: Rhythm & rate is regular and Pedal edema is absent
Respiratory: Respiratory effort normal
Neuro/Psych: Alert and Oriented
Data Reviewed
-
Date of Service: May 02, 2025
EKG: Other (Tele: SR, PVC's, bigeminy)
Labs: Labs Reviewed by me
[2025-05-02 16:58] LABS: Glucose - Point of Care 134 mg/dl (70-99)
[2025-05-02] MEDS: CRESTOR 40 MG PO (17:15)
--- NOTE | 2025-05-02 17:25 | W.PN.NEURO.1 ---
Today's Communication / Plan
-
The patient is an 84 years old male who presented to the hospital with a change in mental status. The patient has a history of seizures and he is on Briviact 100 mg twice a day. On 04/30, in am, the patient's daughter noted that he did not call
her as he typically does and she checked on him and found him to be confused. The LKN was the evening of 04/29 as per his daughter, therefore, he was not a candidate for thrombolytic as he was outside the time window. The patient's mental status
improved in the ER and he gradually returned to his baseline mental status.
MRI of the brain was done on 05/01, that showed a large acute infarct in the right frontal lobe in the right anterior cerebral artery territory and in the right middle cerebral artery territory.
The distribution of the infarcts on MRI appear to be secondary to emboli, likely cardioemboli.
On neurologic examination, the patient's mental status has returned to his baseline as per his daughter who was present at the bedside. The strength in the left upper and lower extremities is about 4/5, while the strength in the right upper and
lower extremities is 5/5. The speech is clear. The cranial nerves II to XII grossly intact. The cerebellar exam does not show limb ataxia.
The plan is to get Holter monitoring.
The echocardiogram showed a LVEF of 60 to 65% and the atrial septum was intact.
The plan is to keep the patient on aspirin Plavix and rosuvastatin.
He will also be on Briviact for seizures, at home dose.
Inpatient rehab is recommended.
Normalize blood pressure
Neuro Assessment/Plan
Assessment
This an 84 years old male patient who presented to the hospital with a change in mental status. He has a history of seizures and has been maintained on Briviact 100 mg twice a day. Yesterday (04/30/2025) daughter noted that he did not call her as
he typically does and checked on him and found him to be confused. The patient's mental status improved in the ER and he gradually returned to his baseline mental status.
Change in mental status likely secondary to new stroke noted on MRI brain vs breakthrough seizure.
Neuro Imaging:
1. CT Head 04/30/25: New area of decreased attenuation in the right frontal lobe extending toward the periphery suggesting an evolving acute/subacute nonhemorrhagic infarction in the right HELLEN territory. New area of decreased attenuation in the
right posterior parietal lobe which could represent a subacute or chronic nonhemorrhagic infarct in the posterior aspect of the right MCA territory.
2. CTA Head/Neck 04/30/25: No large vessel occlusion.
3. MRI brain 05/01/2025:
1. LARGE 5.4 cm ACUTE TRANSCORTICAL INFARCT in the ANTEROMEDIAL RIGHT FRONTAL LOBE (right anterior cerebral artery territory) containing severe cytotoxic edema and multiple punctate foci of intraparenchymal microhemorrhage.
2. Moderate-sized subacute to chronic transcortical infarct in the right temporal and parietal lobes.
3. Severe white matter leukoaraiosis in both cerebral hemispheres.
4. Mild diffuse cerebral and cerebellar volume loss.
5. 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
Echo 05/01/2025
1. Normal left ventricular size, and systolic function. Estimated LVEF 60-65%.
2. Mild aortic stenosis. Peak gradient 32mmHg/Mean gradient 19mmHg - using an left ventricular outflow tract of 2.2cm the estimated aortic valve area is 1.6cm2. Mild aortic regurgitation.
3. The interatrial septum appears normal and intact, with no evidence of interatrial shunting by color flow Doppler.
4. Compared to 07/30/23: no significant change.
Plan
-Continue DAPT with aspirin 81mg and clopidogrel 75mg daily
-Reviewed MRI brain (+) acute stroke
-appreciate cardiology evaluation
-cardiology has switched Atorvastatin to Rosuvastatin for better efficacy
-Continue Briviact 100mg BID. If mental status fails to improve, will consider EEG.
-Goal now normotension.
-NIHSS and neurological checks per unit guidelines.
-Continue PT/OT/ST evaluations.
-Goal normoglycemia, hbA1c is 6.7.
-DVT prophylaxis.
Subjective/Objective
Subjective Data
Date of Service: May 02, 2025
The patient is an 84 years old male who presented to the hospital with a change in mental status. The patient has a history of seizures and he is on Briviact 100 mg twice a day. On 04/30, the patient's daughter noted that he did not call her as
he typically does and she checked on him and found him to be confused. The patient's mental status improved in the ER and he gradually returned to his baseline mental status. The patient's daughter and [id number] also confirmed that the
patient has returned to his baseline mental status.
MRI of the brain was done on 05/01, that showed a large acute infarct in the right frontal lobe in the right anterior cerebral artery territory and in the right middle cerebral artery territory.
The distribution of the infarcts on MRI appear to be secondary to emboli, likely cardioemboli.
On neurologic examination, the patient's mental status has returned to his baseline as per his daughter who was present at the bedside. The strength in the left upper and lower extremities is about 4/5, while the strength in the right upper and
lower extremities is 5/5. The speech is clear. The cranial nerves II to XII grossly intact. The cerebellar exam does not show limb ataxia.
The plan is to get Holter monitoring.
The echocardiogram showed a LVEF of 60 to 65% and the atrial septum was intact.
The plan is to keep the patient on aspirin Plavix and rosuvastatin. He will also be on Briviact for seizures, at home dose.
Inpatient rehab is recommended.
Normalize blood pressure
I had a detailed discussion with the patient's daughter regarding the assessment and the management plan and she verbalized understanding of our discussion.
Objective Data
Vital Signs
Temp Pulse Resp BP Pulse Ox
36.7 C 70 18 118/70 96
05/02/25 15:00 05/02/25 15:00 05/02/25 15:00 05/02/25 15:00 05/02/25 15:00
Lab Results
05/01/25 05:05
05/01/25 05:05
PT 13.9 Sec (11.4-14.6) 04/30/25 12:13
INR 1.01 04/30/25 12:13
APTT 26.5 Sec (23.4-35.0) 04/30/25 12:13
Sodium 138 mmol/L (135-145) 05/01/25 05:05
Potassium 4.9 mmol/L (3.5-5.1) 05/01/25 05:05
BUN 30 mg/dl (9-20) H 05/01/25 05:05
Glucose 128 mg/dl (70-99) H 05/01/25 05:05
Calcium 9.1 mg/dl (8.4-10.2) 05/01/25 05:05
LDL Cholesterol, Calc 75 mg/dl 05/01/25 05:05
Patient Allergies
Sulfa (Sulfonamide Antibiotics) Allergy (Verified 04/30/25 11:38)
Swelling
Vital Signs and Labs
-
Vital Signs and Labs:
Vital Signs
Temp Pulse Resp BP Pulse Ox
36.7 C 70 18 118/70 96
05/02/25 15:00 05/02/25 15:00 05/02/25 15:00 05/02/25 15:00 05/02/25 15:00
Lab Results
05/01/25 05:05
05/01/25 05:05
PT 13.9 Sec (11.4-14.6) 04/30/25 12:13
INR 1.01 04/30/25 12:13
APTT 26.5 Sec (23.4-35.0) 04/30/25 12:13
Sodium 138 mmol/L (135-145) 05/01/25 05:05
Potassium 4.9 mmol/L (3.5-5.1) 05/01/25 05:05
BUN 30 mg/dl (9-20) H 05/01/25 05:05
Glucose 128 mg/dl (70-99) H 05/01/25 05:05
Calcium 9.1 mg/dl (8.4-10.2) 05/01/25 05:05
LDL Cholesterol, Calc 75 mg/dl 05/01/25 05:05
Medications
-
Active Medications
Generic Name Dose Route Start Last Admin
Trade Name Freq PRN Reason Stop Dose Admin
Acetaminophen 650 mg 04/30/25 16:58
Acetaminophen 650 Mg Rectal Suppository RECTAL 05/28/25 16:57
Q4HPRN PRN
SCHMIDT, mild pain, or temp >100.4F
Acetaminophen 650 mg 04/30/25 16:58 05/01/25 23:34
Acetaminophen 325 Mg Tablet PO 05/28/25 16:57 650 mg
Q4HPRN PRN Administration
mild pain/ fever>100.5F
Amlodipine Besylate 2.5 mg 05/01/25 11:00 05/02/25 08:38
Amlodipine 2.5 Mg Tablet PO 05/29/25 10:59 2.5 mg
BID MARIPOSA Administration
Aspirin 81 mg 05/01/25 08:00 05/02/25 08:37
Aspirin 81 Mg (Enteric Coated) Tablet PO 05/29/25 07:59 81 mg
DAILY MARIPOSA Administration
Brivaracetam 100 mg 04/30/25 20:00 05/02/25 08:37
Brivaracetam 50 Mg Tablet PO 05/28/25 19:59 100 mg
BID MARIPOSA Administration
Clopidogrel Bisulfate 75 mg 05/01/25 08:00 05/02/25 08:38
Clopidogrel 75 Mg Tablet PO 05/29/25 07:59 75 mg
DAILY MARIPOSA Administration
Dextrose 12.5 grams 04/30/25 16:58
Dextrose 50% (0.5 Grams/Ml) 50 Ml Syringe IV 05/28/25 16:57
[id number] PRN
hypoglycemia
Protocol
Furosemide 20 mg 05/01/25 11:00 05/02/25 08:38
Furosemide 20 Mg Tablet PO 05/29/25 10:59 20 mg
DAILY MARIPOSA Administration
Glucagon 1 mg 04/30/25 16:58
Glucagon 1 Mg Vial IM 05/28/25 16:57
PRN PRN
hypoglycemia
Protocol
Insulin Aspart 0 units 04/30/25 16:58 05/02/25 17:15
Insulin Aspart Low Resistance 300 Units/3 Ml Pen.Injctr SC 05/28/25 16:57 Not Given
AC MARIPOSA
Protocol
Levothyroxine Sodium 125 mcg 05/01/25 06:00 05/02/25 08:37
Levothyroxine 125 Mcg Tablet PO 05/29/25 05:59 125 mcg
DAILY@0600 MARIPOSA Administration
Metoprolol Tartrate 25 mg 04/30/25 20:00 05/02/25 08:38
Metoprolol 25 Mg Regular Release Tablet PO 05/28/25 19:59 25 mg
BID MARIPOSA Administration
Pantoprazole Sodium 40 mg 05/01/25 08:00 05/02/25 08:38
Pantoprazole 40 Mg Delayed Release Tablet PO 05/29/25 07:59 40 mg
DAILY MARIPOSA Administration
Rosuvastatin Calcium 40 mg 05/01/25 18:00 05/02/25 17:15
Rosuvastatin (Crestor) 20 Mg Tablet PO 05/29/25 17:59 40 mg
QPM MARIPOSA Administration
Sodium Chloride 0 flush 04/30/25 15:00
Sodium Chloride 0.9% (Flush) Syringe IV 05/28/25 14:59
PER PROTOCOL MARIPOSA
Home Medications
�Medication �Instructions �Recorded
levothyroxine 125 mcg tablet 125 mcg PO DAILY Thyroid 03/01/15
metoprolol tartrate 25 mg tablet 25 mg PO BID Heart 01/19/21
disease/condition
atorvastatin 80 mg tablet 80 mg PO QPM High Cholesterol 12/13/22
magnesium oxide 400 mg PO DAILY Supplement 05/13/23
brivaracetam 100 mg tablet 100 mg PO BID Seizures 10/01/23
(Briviact)
metformin 1,000 mg tablet 1,000 mg PO BID Diabetes 10/01/23
furosemide 20 mg tablet 20 mg PO MOWEFR Fluid 06/13/24
Retention/Swelling
acetaminophen 325 mg tablet 650 mg PO DAILYPRN PRN mild pain 09/09/24
(Tylenol)
aspirin 81 mg capsule 81 mg PO DAILY 09/09/24
dapagliflozin propanediol 5 mg 5 mg PO DAILY 09/09/24
tablet (Farxiga)
ibuprofen 200 mg tablet (Advil) 400 mg PO BID Pain 09/09/24
omeprazole 20 mg-sodium 1 cap PO DAILY 09/09/24
bicarbonate 1.1 gram capsule
[2025-05-02 21:57] LABS: Glucose - Point of Care 154 mg/dl (70-99)
[2025-05-02] MEDS: TYLENOL 650 MG PO (22:02)
[2025-05-03 03:00] VITALS: BP 129/75
[2025-05-03] MEDS: SYNTHROID 125 MCG PO (05:30)
[2025-05-03 07:30] VITALS: BP 114/59
[2025-05-03 07:36] LABS: Glucose - Point of Care 136 mg/dl (70-99)
[2025-05-03] MEDS: NOVOLOG FLEXPEN-LOW RESISTANCE SC (07:51)
[2025-05-03] MEDS: ASPIR LOW (ENTERIC COATED) 81 MG PO (07:56)
[2025-05-03] MEDS: PROTONIX 40 MG PO (07:56)
[2025-05-03] MEDS: NORVASC 2.5 MG PO ×2 (07:56→20:12)
[2025-05-03] MEDS: BRIVIACT 100 MG PO ×2 (07:56→20:12)
[2025-05-03] MEDS: PLAVIX 75 MG PO (07:56)
[2025-05-03] MEDS: LOPRESSOR 25 MG PO ×2 (07:56→20:14)
[2025-05-03] MEDS: LASIX 20 MG PO (07:56)
--- NOTE | 2025-05-03 09:08 | W.PN.HOSP.TC ---
Today's Communication/Plan
-
PT/OT
Tylenol ATC
Assessment / Plan
Assessment / Plan
Physical Exam
General: No Apparent Distress and Comfortable
HEENT: Anicteric, Moist mucous membranes and left sided facial droop?
Respiratory: Clear; No Wheezes
Cardiac: S1 S2
GI: Soft, Non Tender and Non Distended
Genito-urinary: No costovertebral tender. No Deo Liveira
Musculoskeletal: No Clubbing, No Cyanosis and No Edema
Skin: Warm and Dry; No Jaundice
Neuro: AAO x 3, facial droop, left neglect, PT is seeing him now for gait
Psych: Calm and Intact Judgment/Insight
81 years old male presented with change in MS
# Acute right frontal stroke
Hx of CVA in past
Was taking aspirin daily
Currently, pt denies symptoms
Will benefit from rehab as he was fairly independent as per daughter, drove his car. Recent OA issues with steroid injection in both feet a day prior to this incident
f/ w PT/OT, consulted Dr Mahoney ( [facility] and made aware)
Echo of the heart showed normal left ventricular size and function, EF 60 to 65%, mild aortic stenosis, mild aortic regurgitation, compared to prior echo, no significant change.
Hemoglobin A1c 6.8, continue with Farxiga. Prior study was 7.2 in 2023
If no A-fib history. Will continue dual antiplatelet therapy but patient should continue on Plavix afterwards
Continue with the statin therapy. LDL 75, total cholesterol 129
Cardiology: Continue ASA/Plavix/statin
Appreciate neurology input
# Lower/ Lumbar back pain, no local tenderness
Known OA. MRI in 2021 showed moderate-sized diffuse disc bulge at L4/L5. There is a small central disc herniation at L5/S1. Likely radiculopathy
Started on Tylenol
# leukocytosis, trending down. No fever. Recent steroid injection for osteoarthritis.
# Acute kidney injury, resolved
# History of seizures
No recurrent seizures
C/w seizure medication
#History of hypertrophic obstructive cardiomyopathy/paroxysmal supraventricular tachycardia, continue metoprolol, monitor on telemetry. No chest pain
. No shortness of breath
Will follow-up with cardiology recommendation
# History of hypertension, slightly uncontrolled, continuing metoprolol, restart Lasix
At low-dose amlodipine to better control
#Hypothyroidism, continue with Synthroid
#History of essential tremor
#History of BPH with history of kidney stones/hydronephrosis.� Monitor for urinary retention
Total time spent to see the patient on the floor, examine the patient, review data and lab results, discussed treatment plan with patient, family, nursing staff around 55 minutes
Anticipated Discharge: 24 - 48 hours
Subjective/Interval History
-
Date of Service: May 03, 2025
Lower back pain
No chest pain
No sob
Objective Data
-
Vital Signs:
Vital Signs
Temp Pulse Resp BP Pulse Ox
98.3 F 83 18 129/75 98
05/03/25 03:00 05/03/25 03:00 05/03/25 03:00 05/03/25 03:00 05/03/25 03:00
I&O
05/02/25 05/03/25 05/04/25
06:59 06:59 06:59
Intake Total 960 / 960
Output Total 2500 / 2500 600 / 600
Balance -2500 / -2500 360 / 360
[2025-05-03 10:51] VITALS: BMI 25.7
[2025-05-03] MEDS: TYLENOL 1000 MG PO (10:51)
[2025-05-03 11:30] VITALS: BP 122/67
--- NOTE | 2025-05-03 11:34 | W.PN.CD ---
Today's Communication / Plan
-
no A fib on tele
we will arrange for extended holter as outpatient as recommended by neuro
please call us back with additional questions
Impression / Plan
-
CVA - acute.
- brain MRI with large 5.4 cm acute transcortical infarct in anteromedial frontal lobe (right anterior cerebral artery territory) containing severe cytotoxic edema and multiple punctate foci of intraparenchymal microhemorrhage. Moderate-sized
subacute to chronic transcortical infarct in the right temporal and parietal lobes.
- neurology following.
-echo: EF 60-65%, mild , mild AR
- ASA, Plavix.
- crestor 40mg (new)
- monitor tele for A fib: no A fib, we will arrange for extended holter as outpatient
PSVT - history of, no recurrence since on Lopressor.
- monitor on tele.
PVC's
-on tele, no sxs
HFpEF - chronic, stable.
- continue PO lasix
Aortic stenosis - mild on echo.
- asymptomatic.
- monitor.
Seizures - on meds, continue.
- per neurology.
Physical Exam
Vital Signs/Labs
Vital Signs
Temp Pulse Resp BP Pulse Ox
98.0 F 65 16 114/59 94
05/03/25 07:30 05/03/25 07:30 05/03/25 07:30 05/03/25 07:30 05/03/25 08:25
05/02/25 05/03/25 05/04/25
06:59 06:59 06:59
Actual Weight 76.158 kg 74.435 kg
05/01/25 05:05
05/01/25 05:05
PT 13.9 Sec (11.4-14.6) 04/30/25 12:13
INR 1.01 04/30/25 12:13
APTT 26.5 Sec (23.4-35.0) 04/30/25 12:13
Triglycerides 81 mg/dl (10-149) 05/01/25 05:05
LDL Cholesterol, Calc 75 mg/dl 05/01/25 05:05
VLDL Cholesterol, Calc 16 mg/dl (0-30) 05/01/25 05:05
HDL Cholesterol 38 mg/dl 05/01/25 05:05
LAB Results
04/30/25
12:13
Troponin I < 0.012
Physical Exam
Constitutional: No acute distress and Comfortable
EENT: Moist mucous membranes
Cardiovascular: Rhythm & rate is regular, Pedal edema is absent, JVD pressure is normal and Systolic murmur present
Respiratory: Respiratory effort normal and Lungs clear to auscul.
Neuro/Psych: AO x 3
Data Reviewed
-
Date of Service: May 03, 2025
EKG: Other (Tele: SR, PAC's, PVC's; no A fib)
Labs: Labs Reviewed by me
[2025-05-03 11:47] LABS: Glucose - Point of Care 187 mg/dl (70-99)
[2025-05-03] MEDS: NOVOLOG FLEXPEN-LOW RESISTANCE 1 UNITS SC ×2 (12:32→17:05)
[2025-05-03 15:30] VITALS: BP 111/73
--- NOTE | 2025-05-03 16:29 | W.PN.NEURO.1 ---
Today's Communication / Plan
-
The plan is to keep the patient on aspirin Plavix and rosuvastatin.
He will also be on Briviact for seizures, at home dose.
Inpatient rehab is recommended.
Normalize blood pressure.
Will sign off. Please call if you have any question.
Neuro Assessment/Plan
Assessment
This an 84 years old male patient who presented to the hospital with a change in mental status. He has a history of seizures and has been maintained on Briviact 100 mg twice a day. Yesterday (04/30/2025) daughter noted that he did not call her as
he typically does and checked on him and found him to be confused. The patient's mental status improved in the ER and he gradually returned to his baseline mental status.
Change in mental status likely secondary to new stroke noted on MRI brain vs breakthrough seizure.
Neuro Imaging:
1. CT Head 04/30/25: New area of decreased attenuation in the right frontal lobe extending toward the periphery suggesting an evolving acute/subacute nonhemorrhagic infarction in the right HELLEN territory. New area of decreased attenuation in the
right posterior parietal lobe which could represent a subacute or chronic nonhemorrhagic infarct in the posterior aspect of the right MCA territory.
2. CTA Head/Neck 04/30/25: No large vessel occlusion.
3. MRI brain 05/01/2025:
1. LARGE 5.4 cm ACUTE TRANSCORTICAL INFARCT in the ANTEROMEDIAL RIGHT FRONTAL LOBE (right anterior cerebral artery territory) containing severe cytotoxic edema and multiple punctate foci of intraparenchymal microhemorrhage.
2. Moderate-sized subacute to chronic transcortical infarct in the right temporal and parietal lobes.
3. Severe white matter leukoaraiosis in both cerebral hemispheres.
4. Mild diffuse cerebral and cerebellar volume loss.
5. 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
Echo 05/01/2025
1. Normal left ventricular size, and systolic function. Estimated LVEF 60-65%.
2. Mild aortic stenosis. Peak gradient 32mmHg/Mean gradient 19mmHg - using an left ventricular outflow tract of 2.2cm the estimated aortic valve area is 1.6cm2. Mild aortic regurgitation.
3. The interatrial septum appears normal and intact, with no evidence of interatrial shunting by color flow Doppler.
4. Compared to 07/30/23: no significant change.
Plan
-Continue DAPT with aspirin 81mg and clopidogrel 75mg daily
-Reviewed MRI brain (+) acute stroke
-appreciate cardiology evaluation
-cardiology has switched Atorvastatin to Rosuvastatin for better efficacy
-Continue Briviact 100mg BID. If mental status fails to improve, will consider EEG.
-Goal now normotension.
-NIHSS and neurological checks per unit guidelines.
-Continue PT/OT/ST evaluations.
-Goal normoglycemia, hbA1c is 6.7.
-DVT prophylaxis.
Subjective/Objective
Subjective Data
Date of Service: May 03, 2025
The patient is an 84 years old male who presented to the hospital with a change in mental status. The patient has a history of seizures and he is on Briviact 100 mg twice a day. On 04/30, in am, the patient's daughter noted that he did not call
her as he typically does and she checked on him and found him to be confused. The LKN was the evening of 04/29 as per his daughter, therefore, he was not a candidate for thrombolytic as he was outside the time window. The patient's mental status
improved in the ER and he gradually returned to his baseline mental status.
MRI of the brain was done on 05/01, that showed a large acute infarct in the right frontal lobe in the right anterior cerebral artery territory and in the right middle cerebral artery territory.
The distribution of the infarcts on MRI appear to be secondary to emboli, likely cardioemboli.
On neurologic examination, the patient's mental status has returned to his baseline as per his daughter who was present at the bedside. The strength in the left upper and lower extremities is about 4/5, while the strength in the right upper and
lower extremities is 5/5. The speech is clear. The cranial nerves II to XII grossly intact. The cerebellar exam does not show limb ataxia.
The plan is to get Holter monitoring.
The echocardiogram showed a LVEF of 60 to 65% and the atrial septum was intact.
The plan is to keep the patient on aspirin Plavix and rosuvastatin.
He will also be on Briviact for seizures, at home dose.
Inpatient rehab is recommended.
Normalize blood pressure.
Objective Data
Vital Signs
Temp Pulse Resp BP Pulse Ox
36.4 C 67 18 122/67 96
05/03/25 11:30 05/03/25 11:30 05/03/25 11:30 05/03/25 11:30 05/03/25 11:30
Lab Results
05/01/25 05:05
05/01/25 05:05
PT 13.9 Sec (11.4-14.6) 04/30/25 12:13
INR 1.01 04/30/25 12:13
APTT 26.5 Sec (23.4-35.0) 04/30/25 12:13
Sodium 138 mmol/L (135-145) 05/01/25 05:05
Potassium 4.9 mmol/L (3.5-5.1) 05/01/25 05:05
BUN 30 mg/dl (9-20) H 05/01/25 05:05
Glucose 128 mg/dl (70-99) H 05/01/25 05:05
Calcium 9.1 mg/dl (8.4-10.2) 05/01/25 05:05
LDL Cholesterol, Calc 75 mg/dl 05/01/25 05:05
Patient Allergies
Sulfa (Sulfonamide Antibiotics) Allergy (Verified 04/30/25 11:38)
Swelling
Vital Signs and Labs
-
Vital Signs and Labs:
Vital Signs
Temp Pulse Resp BP Pulse Ox
36.4 C 67 18 122/67 96
05/03/25 11:30 05/03/25 11:30 05/03/25 11:30 05/03/25 11:30 05/03/25 11:30
Lab Results
05/01/25 05:05
05/01/25 05:05
PT 13.9 Sec (11.4-14.6) 04/30/25 12:13
INR 1.01 04/30/25 12:13
APTT 26.5 Sec (23.4-35.0) 04/30/25 12:13
Sodium 138 mmol/L (135-145) 05/01/25 05:05
Potassium 4.9 mmol/L (3.5-5.1) 05/01/25 05:05
BUN 30 mg/dl (9-20) H 05/01/25 05:05
Glucose 128 mg/dl (70-99) H 05/01/25 05:05
Calcium 9.1 mg/dl (8.4-10.2) 05/01/25 05:05
LDL Cholesterol, Calc 75 mg/dl 05/01/25 05:05
Medications
-
Active Medications
Generic Name Dose Route Start Last Admin
Trade Name Freq PRN Reason Stop Dose Admin
Acetaminophen 650 mg 04/30/25 16:58
Acetaminophen 650 Mg Rectal Suppository RECTAL 05/28/25 16:57
Q4HPRN PRN
SCHMIDT, mild pain, or temp >100.4F
Amlodipine Besylate 2.5 mg 05/01/25 11:00 05/03/25 07:56
Amlodipine 2.5 Mg Tablet PO 05/29/25 10:59 2.5 mg
BID MARIPOSA Administration
Aspirin 81 mg 05/01/25 08:00 05/03/25 07:56
Aspirin 81 Mg (Enteric Coated) Tablet PO 05/29/25 07:59 81 mg
DAILY MARIPOSA Administration
Brivaracetam 100 mg 04/30/25 20:00 05/03/25 07:56
Brivaracetam 50 Mg Tablet PO 05/28/25 19:59 100 mg
BID MARIPOSA Administration
Clopidogrel Bisulfate 75 mg 05/01/25 08:00 05/03/25 07:56
Clopidogrel 75 Mg Tablet PO 05/29/25 07:59 75 mg
DAILY MARIPOSA Administration
Dextrose 12.5 grams 04/30/25 16:58
Dextrose 50% (0.5 Grams/Ml) 50 Ml Syringe IV 05/28/25 16:57
[id number] PRN
hypoglycemia
Protocol
Furosemide 20 mg 05/01/25 11:00 05/03/25 07:56
Furosemide 20 Mg Tablet PO 05/29/25 10:59 20 mg
DAILY MARIPOSA Administration
Glucagon 1 mg 04/30/25 16:58
Glucagon 1 Mg Vial IM 05/28/25 16:57
PRN PRN
hypoglycemia
Protocol
Insulin Aspart 0 units 04/30/25 16:58 05/03/25 12:32
Insulin Aspart Low Resistance 300 Units/3 Ml Pen.Injctr SC 05/28/25 16:57 1 units
AC MARIPOSA Administration
Protocol
Levothyroxine Sodium 125 mcg 05/01/25 06:00 05/03/25 05:30
Levothyroxine 125 Mcg Tablet PO 05/29/25 05:59 125 mcg
DAILY@0600 MARIPOSA Administration
Metoprolol Tartrate 25 mg 04/30/25 20:00 05/03/25 07:56
Metoprolol 25 Mg Regular Release Tablet PO 05/28/25 19:59 25 mg
BID MARIPOSA Administration
Pantoprazole Sodium 40 mg 05/01/25 08:00 05/03/25 07:56
Pantoprazole 40 Mg Delayed Release Tablet PO 05/29/25 07:59 40 mg
DAILY MARIPOSA Administration
Rosuvastatin Calcium 40 mg 05/01/25 18:00 05/02/25 17:15
Rosuvastatin (Crestor) 20 Mg Tablet PO 05/29/25 17:59 40 mg
QPM MARIPOSA Administration
Sodium Chloride 0 flush 04/30/25 15:00
Sodium Chloride 0.9% (Flush) Syringe IV 05/28/25 14:59
PER PROTOCOL MARIPOSA
Home Medications
�Medication �Instructions �Recorded
levothyroxine 125 mcg tablet 125 mcg PO DAILY Thyroid 03/01/15
metoprolol tartrate 25 mg tablet 25 mg PO BID Heart 08/03/20
disease/condition
atorvastatin 80 mg tablet 80 mg PO QPM High Cholesterol 12/13/22
magnesium oxide 400 mg PO DAILY Supplement 05/13/23
brivaracetam 100 mg tablet 100 mg PO BID Seizures 10/01/23
(Briviact)
metformin 1,000 mg tablet 1,000 mg PO BID Diabetes 10/01/23
furosemide 20 mg tablet 20 mg PO MOWEFR Fluid 06/13/24
Retention/Swelling
acetaminophen 325 mg tablet 650 mg PO DAILYPRN PRN mild pain 09/09/24
(Tylenol)
aspirin 81 mg capsule 81 mg PO DAILY 09/09/24
dapagliflozin propanediol 5 mg 5 mg PO DAILY 09/09/24
tablet (Farxiga)
ibuprofen 200 mg tablet (Advil) 400 mg PO BID Pain 09/09/24
omeprazole 20 mg-sodium 1 cap PO DAILY 09/09/24
bicarbonate 1.1 gram capsule
[2025-05-03 16:37] LABS: Glucose - Point of Care 185 mg/dl (70-99)
[2025-05-03] MEDS: CRESTOR 40 MG PO (17:05)
[2025-05-03 19:15] VITALS: BP 139/84
[2025-05-03 21:04] LABS: Glucose - Point of Care 167 mg/dl (70-99)
[2025-05-03 23:19] VITALS: BP 119/67
[2025-05-04 03:00] VITALS: BP 144/85
[2025-05-04] MEDS: SYNTHROID 125 MCG PO (05:23)
[2025-05-04 07:18] LABS: Hematocrit 49.1 % (39.0-52.0); Hemoglobin 15.6 g/dL (13.0-18.0); Mean Corp Hgb Conc. 31.8 g/dL (33.0-37.0); Mean Corpuscular Volume 83.5 fL (80.0-94.0); Platelet Count 285 10^3/uL (130-400); Red Cell Dist. Width 14.9 % (11.5-14.5)
[2025-05-04 07:28] LABS: Blood Urea Nitrogen 34 mg/dl (9-20); Calcium 9.1 mg/dl (8.4-10.2); Carbon Dioxide 27 mmol/L (22-30); Chloride 101 mmol/L (98-107); Estimated Creatinine Clearance 44 ml/min; Glucose 174 mg/dl (70-99); Potassium 4.6 mmol/L (3.5-5.1); Sodium 135 mmol/L (135-145); eGFR > 60.00
[2025-05-04 07:30] VITALS: BP 144/81
[2025-05-04 07:58] LABS: Glucose - Point of Care 155 mg/dl (70-99)
[2025-05-04] MEDS: BRIVIACT 100 MG PO ×2 (08:15→19:50)
[2025-05-04] MEDS: NOVOLOG FLEXPEN-LOW RESISTANCE 1 UNITS SC (08:15)
[2025-05-04] MEDS: LASIX 20 MG PO (08:15)
[2025-05-04] MEDS: ASPIR LOW (ENTERIC COATED) 81 MG PO (08:15)
[2025-05-04] MEDS: NORVASC 2.5 MG PO ×2 (08:16→19:50)
[2025-05-04] MEDS: LOPRESSOR 25 MG PO ×2 (08:16→19:53)
[2025-05-04] MEDS: PROTONIX 40 MG PO (08:17)
[2025-05-04] MEDS: PLAVIX 75 MG PO (08:17)
[2025-05-04 09:55] VITALS: BMI 24.3
--- NOTE | 2025-05-04 11:28 | W.PN.HOSP.TC ---
Today's Communication/Plan
-
Assessment / Plan
Assessment / Plan
Physical Exam
General: No Apparent Distress and Comfortable
HEENT: Anicteric, Moist mucous membranes
Respiratory: Clear; No Wheezes
Cardiac: Regular rhythm, heart rate controlled around 70
GI: Soft, Non Tender and Non Distended
Genito-urinary: No costovertebral tender. No De Oliveira
Musculoskeletal: No Clubbing, No Cyanosis and No Edema
Skin: Warm and Dry; No Jaundice
Neuro: AAO x 3, facial droop
Psych: Calm and Intact Judgment/Insight
84 years old male presented with change in MS
# Acute right frontal stroke
- Hx of CVA in past, was taking aspirin daily
- MRI shows large acute transcortical infarct involving the anterior medial right frontal lobe
- Will benefit from rehab as he was fairly independent as per daughter, drove his car. Recent OA issues with steroid injection in both feet a day prior to this incident
- f/ w PT/OT, consulted Dr Mahoney ( [facility] and made aware)
- No shunt or thrombus noted on echo, cardiology arranging for extended Holter monitoring as outpatient
- Hemoglobin A1c 6.8, continue with Farxiga. Prior study was 7.2 in 2023
- Will continue dual antiplatelet therapy but patient should continue on Plavix afterwards
- Continue with the statin therapy. LDL 75, total cholesterol 129
- Medically stable, awaiting evaluation for possible acute rehab placement
# Lower/ Lumbar back pain, no local tenderness
Known OA. MRI in 2021 showed moderate-sized diffuse disc bulge at L4/L5. There is a small central disc herniation at L5/S1. Likely radiculopathy
Started on Tylenol
# leukocytosis, trending down. No fever. Recent steroid injection for osteoarthritis.
# Acute kidney injury, resolved
# History of seizures
No recurrent seizures
C/w seizure medication
#History of hypertrophic obstructive cardiomyopathy/paroxysmal supraventricular tachycardia
- No chest pain or shortness of breath
- Continue metoprolol, monitor on telemetry.
- Ongoing outpatient cardiology follow-up
# History of hypertension, slightly uncontrolled, continuing metoprolol, restart Lasix
At low-dose amlodipine to better control
#Hypothyroidism, continue with Synthroid
#History of essential tremor
#History of BPH with history of kidney stones/hydronephrosis.� Monitor for urinary retention
Anticipated Discharge: 24 - 48 hours
Subjective/Interval History
-
Date of Service: May 04, 2025
Mr. Biggs was seen and examined at bedside this morning. Feeling well, anxiously awaiting evaluation by physical medicine and rehab.
Objective Data
-
Labs:
Laboratory Results
05/04/25
06:41
WBC 13.9 H
Hgb 15.6 D
Hct 49.1
Plt Count 285
Sodium 135
Potassium 4.6
Chloride 101
Carbon Dioxide 27
BUN 34 H
Creatinine 1.2
Glucose 174 H
Calcium 9.1
Vital Signs:
Vital Signs
Temp Pulse Resp BP Pulse Ox
98.2 F 65 16 144/81 96
05/04/25 07:30 05/04/25 07:30 05/04/25 07:30 05/04/25 07:30 05/04/25 08:30
I&O
05/03/25 05/04/25 05/05/25
06:59 06:59 06:59
Intake Total 960 / 960 660 / 660
Output Total 600 / 600 700 / 700
Balance 360 / 360 -40 / -40
Review of Systems
-
History Source: Patient
All other systems: Reviewed and negative
Physical Exam
-
General: No Apparent Distress
[2025-05-04 11:30] VITALS: BP 118/68
[2025-05-04 11:49] LABS: Glucose - Point of Care 230 mg/dl (70-99)
[2025-05-04] MEDS: NOVOLOG FLEXPEN-LOW RESISTANCE 2 UNITS SC ×2 (12:05→17:04)
--- NOTE | 2025-05-04 13:32 | CM ---
Patient chart reviewed
PT/OT rec acute rehab
physiatry consulted
[facility]-accepted in [facility]
plan: [facility] when stable
[2025-05-04 15:30] VITALS: BP 117/75
--- NOTE | 2025-05-04 15:42 | PTOTSP ---
Speech Therapy Follow-Up:
Miquel Cognitive Assessment (MOCA) administered to assess cognitive domains (memory, attention, repetition, verbal fluency). 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
Informal deficits in insight to impairments.
Recommendations:
1. Pt would benefit from ST at acute level and next level of care at inpatient rehab to address cognitive-linguistic deficits.
[2025-05-04 16:46] LABS: Glucose - Point of Care 230 mg/dl (70-99)
[2025-05-04] MEDS: CRESTOR 40 MG PO (17:04)
[2025-05-04 19:19] VITALS: BP 107/71
[2025-05-04] MEDS: TYLENOL 650 MG PO (19:57)
[2025-05-04 23:13] VITALS: BP 141/75
[2025-05-04 23:29] LABS: Glucose - Point of Care 301 mg/dl (70-99)
[2025-05-05 03:03] VITALS: BP 135/80
[2025-05-05] MEDS: SYNTHROID 125 MCG PO (05:07)
[2025-05-05 06:00] VITALS: BMI 25.6
[2025-05-05 07:09] LABS: Glucose - Point of Care 195 mg/dl (70-99)
[2025-05-05] MEDS: NOVOLOG FLEXPEN-LOW RESISTANCE 1 UNITS SC (07:50)
[2025-05-05] MEDS: BRIVIACT 100 MG PO (07:50)
[2025-05-05] MEDS: ASPIR LOW (ENTERIC COATED) 81 MG PO (07:50)
[2025-05-05] MEDS: NORVASC 2.5 MG PO (07:51)
[2025-05-05] MEDS: PLAVIX 75 MG PO (07:51)
[2025-05-05] MEDS: PROTONIX 40 MG PO (07:51)
[2025-05-05] MEDS: LASIX 20 MG PO (07:51)
[2025-05-05] MEDS: LOPRESSOR 25 MG PO (07:51)
[2025-05-05 11:06] VITALS: BP 126/89
--- NOTE | 2025-05-05 11:46 | W.PN.HOSP.TC ---
Today's Communication/Plan
-
Assessment / Plan
Assessment / Plan
Physical Exam
General: No Apparent Distress and Comfortable
HEENT: Anicteric, Moist mucous membranes
Respiratory: Clear; No Wheezes
Cardiac: Regular rhythm, heart rate controlled around 70
GI: Soft, Non Tender and Non Distended
Genito-urinary: No costovertebral tender. No De Oliveira
Musculoskeletal: No Clubbing, No Cyanosis and No Edema
Skin: Warm and Dry; No Jaundice
Neuro: AAO x 3, 4/5 strength left upper and lower extremities
Psych: Calm and Intact Judgment/Insight
84 years old male presented with change in MS
# Acute right frontal stroke
- Hx of CVA in past, was taking aspirin daily
- MRI shows large acute transcortical infarct involving the anterior medial right frontal lobe
- Will benefit from rehab as he was fairly independent as per daughter, drove his car. Recent OA issues with steroid injection in both feet a day prior to this incident
- f/ w PT/OT, consulted Dr Mahoney ( TT and made aware)
- No shunt or thrombus noted on echo, cardiology arranging for extended Holter monitoring as outpatient
- Hemoglobin A1c 6.8, continue with Farxiga. Prior study was 7.2 in 2023
- Will continue dual antiplatelet therapy but patient should continue on Plavix afterwards
- Continue with the statin therapy. LDL 75, total cholesterol 129
- Medically stable, awaiting evaluation for acute rehab placement
# Lower/ Lumbar back pain, no local tenderness
Known OA. MRI in 2021 showed moderate-sized diffuse disc bulge at L4/L5. There is a small central disc herniation at L5/S1. Likely radiculopathy
Started on Tylenol
# leukocytosis, trending down. No fever. Recent steroid injection for osteoarthritis.
# Acute kidney injury, resolved
# History of seizures
No recurrent seizures
C/w seizure medication
#History of hypertrophic obstructive cardiomyopathy/paroxysmal supraventricular tachycardia
- No chest pain or shortness of breath
- Continue metoprolol, monitor on telemetry.
- Ongoing outpatient cardiology follow-up
# History of hypertension, slightly uncontrolled, continuing metoprolol, restart Lasix
At low-dose amlodipine to better control
#Hypothyroidism, continue with Synthroid
#History of essential tremor
#History of BPH with history of kidney stones/hydronephrosis.� Monitor for urinary retention
Anticipated Discharge: 24 - 48 hours
Subjective/Interval History
-
Date of Service: May 05, 2025
Patient was seen and examined at bedside this morning. Remains medically stable and awaiting rehab placement.
Objective Data
-
Vital Signs:
Vital Signs
Temp Pulse Resp BP Pulse Ox
97.4 F 72 14 126/89 98
05/05/25 11:06 05/05/25 11:06 05/05/25 11:06 05/05/25 11:06 05/05/25 11:06
I&O
05/04/25 05/05/25 05/06/25
06:59 06:59 06:59
Intake Total 660 / 660 1020 / 1020
Output Total 700 / 700 825 / 825 150 / 150
Balance -40 / -40 195 / 195 -150 / -150
Review of Systems
-
History Source: Patient
All other systems: Reviewed and negative
Physical Exam
-
General: No Apparent Distress
[2025-05-05 12:09] LABS: Glucose - Point of Care 214 mg/dl (70-99)
[2025-05-05] MEDS: NOVOLOG FLEXPEN-LOW RESISTANCE 2 UNITS SC (12:24)
[2025-05-05 13:14] VITALS: BP 107/73; PULSE 87; O2SAT 97
--- NOTE | 2025-05-05 13:31 | CM ---
NEIL reviewed chart, patient seen bedside with daughter.
[facility] able to accept patient today.
IMM verbally reviewed, provided with copy, placed in chart.
CM will continue to follow for all d/c planning needs.
Ghanshyam; [facility]
Report: [phone]
[2025-05-05 14:50] VITALS: BP 110/73
--- NOTE | 2025-05-05 15:59 | W.DCSUMMARY ---
Discharge Summary
Discharge Data
Date of Admission: 04/30/25
Date of Discharge: 05/05/25
-
Pending Results: No
Hospital Course
Mr. Biggs is an 84-year-old male with medical history of CVA, seizures, paroxysmal SVT, hypertrophic obstructive cardiomyopathy, non-Hodgkin's lymphoma, NIDDM, and hypothyroidism who presented with an acute change in his mental status. He was found
to have a large acute right frontal lobe infarct. He was started on Plavix in addition to the low-dose aspirin he had already been taking. His statin therapy was changed to rosuvastatin 40 mg at night. Echocardiogram showed no evidence of
thrombus or shunting. He was evaluated by cardiology who would like him to follow-up in the outpatient office for extended Holter monitoring. He was evaluated by PT/OT who recommended acute rehab. He has been accepted to [facility] for ongoing
physical therapy after his acute CVA. He will need to follow-up with his primary care physician and with neurology in 2 to 3 weeks to discuss potentially discontinuing aspirin or Plavix. He was started on low-dose amlodipine for blood pressure
control.
Discharge Plan
-
Patient Disposition: Acute Rehab Facility
Discharge Diagnosis/Procedures: Acute CVA
Activity Restrictions/Additional Instructions:
You were admitted for evaluation of a change in mental status. You were found to have an acute stroke involving the right frontal lobe. You were started on a blood thinner called clopidogrel (brand-name Plavix) which you should take in addition to
low-dose aspirin 81 mg. You should follow-up with a neurologist in the outpatient office in 2 to 3 weeks to discuss medication changes (potentially stopping either aspirin or Plavix). Your cholesterol medication has been changed to rosuvastatin 40
mg which you should take nightly. You were evaluated by cardiology and an echocardiogram was obtained which showed no evidence of intracardiac thrombus or shunting. Cardiology team would like you to follow-up in the outpatient setting for ongoing
monitoring of your heart rhythm. You were evaluated by physical and Occupational Therapy who felt that you were a good candidate for acute rehabilitation. You have been accepted to [facility] for ongoing physical and Occupational Therapy after
your stroke.
Referrals:
Chente Domingo MD [Active, Cardiology]
Referral Note: Ambulatory heart rhythm monitoring
Bo Talavera MD [Active, Neurology]
UNKNOWN - PT DOES,NOT KNOW [Family Provider]
Prescriptions:
New
amlodipine 2.5 mg Tablet
2.5 mg PO DAILY 30 Days Qty: 30 0RF
clopidogrel 75 mg Tablet
75 mg PO DAILY 30 Days Qty: 30 0RF
pantoprazole 40 mg Tablet,Delayed Release (Dr/Ec)
40 mg PO DAILY 30 Days Qty: 30 0RF
rosuvastatin 20 mg Tablet
40 mg PO QPM 30 Days Qty: 60 0RF
Continued
levothyroxine 125 MCG tablet
125 mcg PO DAILY
metoprolol tartrate 25 MG tablet
25 mg PO BID
magnesium oxide 400 mg magnesium Tablet
400 mg PO DAILY
metformin 1,000 mg tablet
1,000 mg PO BID
Briviact 100 mg tablet
100 mg PO BID
furosemide 20 mg Tablet
20 mg PO MOWEFR
Rx Instructions:
M,W,F
dapagliflozin propanediol [Farxiga] 5 mg tablet
5 mg PO DAILY
acetaminophen [Tylenol] 325 mg tablet
650 mg PO DAILYPRN PRN (Reason: mild pain)
Rx Instructions:
SCHEDULED DOSING
aspirin 81 mg Capsule
81 mg PO DAILY
Discontinued
atorvastatin 80 mg tablet
80 mg PO QPM
omeprazole-sodium bicarbonate 20-1.1 mg-gram Capsule
1 cap PO DAILY
ibuprofen [Advil] 200 mg Tablet
400 mg PO BID
Discharge Orders:
Discharge Patient (As Directed); Ordered 05/05/25
Ordered By: Alvarez Jimenes
Discharge Date and Time
Print Language: COLOMBIAN
[2025-05-05 17:03] LABS: Glucose - Point of Care 189 mg/dl (70-99)
== END 2025-05-05 16:20 | DRG 65 ==
LOC: 4 WEST ACU 13:36
PROVIDERS: Internal Medicine; Physician Assistant Medical; ADMITTING PHYSICIAN Hospitalist; ATTENDING PHYSICIAN Internal Medicine; CONSULT PHYSICIAN Internal Medicine; CONSULT PHYSICIAN Psychiatry & Neurology Neurology; EMERGENCY PHYSICIAN Student in an Organized Health Care Education/Training Program
DX: I63.9 Cerebral infarction, unspecified (principal); I47.10 Supraventricular tachycardia, unspecified; N17.9 Acute kidney failure, unspecified; I50.32 Chronic diastolic (congestive) heart failure; Z87.891 Personal history of nicotine dependence; Z79.82 Long term (current) use of aspirin; E03.9 Hypothyroidism, unspecified; I11.0 Hypertensive heart disease with heart failure; G40.909 Epilepsy, unspecified, not intractable, without status epilepticus; Z79.899 Other long term (current) drug therapy; G20.A1 Parkinson's disease without dyskinesia, without mention of fluctuations
CPT/HCPCS: 70450; 70496; 70498; 70551; 80048; 80053; 80061; 81003; 81015; 82962; 83036; 84484; 85025; 85027; 85610; 85730; 87070; 92507; 92523; 92526; 92610; 93005; 93306; 97112; 97116; 97129; 97167; 97530; 97535; Q9967

== ENCOUNTER → 2025-05-19 10:12 | Outpatient (REF) | payer MEDICARE, OTHER, SELFPAY ==
[2025-05-19 10:57] LABS: Hematocrit 46.0 % (39.0-52.0); Hemoglobin 14.5 g/dL (13.0-18.0); Mean Corp Hgb Conc. 31.5 g/dL (33.0-37.0); Mean Corpuscular Volume 83.6 fL (80.0-94.0); Nucleated Red Blood Cells % 0 % (-); Platelet Count 338 10^3/uL (130-400); Red Cell Dist. Width 14.8 % (11.5-14.5)
[2025-05-19 11:03] LABS: Urine Character Clear (Clear)
[2025-05-19 11:22] LABS: ALT (SGPT) 34 U/L (0-50); AST (SGOT) 29 U/L (17-59); Albumin 4.4 g/dl (3.5-5.0); Alkaline Phosphatase 101 U/L (38-126); Blood Urea Nitrogen 44 mg/dl (9-20); Calcium 9.8 mg/dl (8.4-10.2); Carbon Dioxide 25 mmol/L (22-30); Chloride 103 mmol/L (98-107); Glucose 131 mg/dl (70-99); HDL Cholesterol 37 mg/dl; LDL Cholesterol, Calculated 70 mg/dl; Potassium 4.6 mmol/L (3.5-5.1); Sodium 139 mmol/L (135-145); Total Protein 7.2 g/dl (6.3-8.2); Very Low Density Lipoprotein 21 mg/dl (0-30); eGFR 54.51
[2025-05-19 11:30] LABS: Urine Squamous Cell >30 /LPF (Few)
[2025-05-19 11:39] LABS: Vitamin D, 25-OH*** 49.8 ng/mL (30-80)
== END ==
LOC: REG 10:12
PROVIDERS: ATTENDING PHYSICIAN Internal Medicine Geriatric Medicine
DX: Z09 Encounter for follow-up examination after completed treatment for conditions other than malignant neoplasm (principal); I10 Essential (primary) hypertension; E03.8 Other specified hypothyroidism; E78.2 Mixed hyperlipidemia; E11.9 Type 2 diabetes mellitus without complications; G25.0 Essential tremor; R56.9 Unspecified convulsions; E55.9 Vitamin D deficiency, unspecified; I63.89 Other cerebral infarction; R73.01 Impaired fasting glucose; I35.0 Nonrheumatic aortic (valve) stenosis; I48.0 Paroxysmal atrial fibrillation; K21.9 Gastro-esophageal reflux disease without esophagitis; Z13.31 Encounter for screening for depression
CPT/HCPCS: 36415; 80053; 80061; 81003; 81015; 82306; 85025

== ENCOUNTER → 2025-05-29 11:09 | Outpatient (REF) | payer MEDICARE, OTHER, SELFPAY ==
[2025-05-29 13:20] LABS: VerifyNow Aspirin 489 ARU; VerifyNow PRU 6 PRU (180-376)
== END ==
LOC: REG 11:09
PROVIDERS: ATTENDING PHYSICIAN Psychiatry & Neurology Neurology; FAMILY PHYSICIAN Internal Medicine Geriatric Medicine
DX: I63.9 Cerebral infarction, unspecified (principal)
CPT/HCPCS: 36415; 85576

== ENCOUNTER → 2025-06-17 08:55 | Outpatient (REF) | payer MEDICARE, OTHER, SELFPAY | LOC: HWRAD 08:55 | PROVIDERS: ATTENDING PHYSICIAN Urology; FAMILY PHYSICIAN Internal Medicine Geriatric Medicine | DX: N20.0 Calculus of kidney (principal); N40.1 Benign prostatic hyperplasia with lower urinary tract symptoms | CPT/HCPCS: 76770 ==

== ENCOUNTER → 2025-06-23 13:18 | Outpatient (REF) | payer MEDICARE, OTHER, SELFPAY ==
[2025-06-23 14:44] LABS: Blood Urea Nitrogen 38 mg/dl (9-20); Calcium 9.6 mg/dl (8.4-10.2); Carbon Dioxide 26 mmol/L (22-30); Chloride 106 mmol/L (98-107); Glucose 102 mg/dl (70-99); Potassium 4.6 mmol/L (3.5-5.1); Sodium 137 mmol/L (135-145); eGFR > 60.00
== END ==
LOC: OLABWIL 13:18
PROVIDERS: ATTENDING PHYSICIAN Nurse Practitioner
DX: I50.32 Chronic diastolic (congestive) heart failure (principal)
CPT/HCPCS: 36415; 80048